=== PATIENT | female | born 1970 | race Caucasian/White ===

== ENCOUNTER 2022-08-19 12:28 | Emergency (ER) | payer OTHER, SELFPAY ==
[2022-08-19] VITALS (23 sets, daily range): BP systolic 139–188; BP diastolic 80–114; PULSE 78–103; RESP 17–20; TEMP 36.3–37.2; O2SAT 93–100
--- NOTE | ~2022-08-19 | CT_ITS ---
EXAMINATION: CT brain w con DATE: 08/19/2022 15:02 INDICATION: Frontal and occipital headaches TECHNIQUE: Computed tomography (CT) of the head was performed without intravenous contrast. The mA wa s adjusted according to patient size. Iterative reconstruction technique was employed. Exam dose: 60 5.33 mGy-cm total exam DLP. COMPARISON: None FINDINGS: There are 3 prominently enhancing masses of the right posterior parietal area, likely due t o metastatic disease, with very prominent vasogenic edema of the right cerebral hemisphere. The 3 les ions measure up to 15.7, 11.3 and 13.9 mm. There is effacement of the cortical sulci of the right cer ebral hemisphere and approximately 5 mm subfalcine midline leftward shift. No fracture or bone destruction of the cranial vault. Mastoid air cells and included paranasal sinuse s are unremarkable. IMPRESSION: 3 prominently enhancing masses of the right parietal cerebral hemisphere, measuring up t o 15.7 mm, likely due to metastatic disease Prominent vasogenic edema and effacement of the cortical sulci site of the right cerebral hemisphere 5 mm leftward midline shift Reviewed, dictated and finalized at [facility]. Reviewed, dictated and finalized at [facility]. IMPRESSION: 3 prominently enhancing masses of the right parietal cerebral alan sphere, measuring up to 15.7 mm, likely due to metastatic disease Prominent vasogenic edema and effacement of the cortical sulci site of the righ t cerebral hemisphere 5 mm leftward midline shift
--- NOTE | ~2022-08-19 | CT_ITS ---
EXAMINATION: CT chest abdomen pelvis w con DATE: 08/19/2022 15:53 INDICATION: Shortness of breath. Previous smoker. Metastatic brain lesions. TECHNIQUE: Computed tomography (CT) of the chest was performed with 100 CC Omnipaque 350 intravenous contrast. Automated exposure control and iterative reconstruction technique were employed. Exam dose: 975.23 mGy-cm total exam DLP. COMPARISON: None FINDINGS: No breast mass lesion or axillary lymphadenopathy is evident. Mild pericardial effusion. The pericardial fluid has attenuation of approximately 29 Hounsfield units Heart size is normal. No thoracic aortic aneurysm or dissection. Mild subcarinal lymphadenopathy; otherwise no hilar or mediastinal mass lesion or lymphadenopathy. There are moderate emphysematous changes of the lungs. Up to approximately 7 x 11 mm opacity is noted in the lower aspect of the anterior segment of the rig ht upper lobe, with attenuation averaging 127 Hounsfield units. There is an adjacent approximately 4. 5 x 6 mm high attenuation lower anterior segment right upper lobe opacity as well. Focal likely chronic interlobular soft tissue thickening in the posterolateral left upper lobe (serie s 4 images 32-34). Mild discoid atelectasis or scarring, left lower lobe. No pulmonary infiltrate or consolidation. The liver, gallbladder, pancreas and bile ducts and pancreatic duct as well as well as the spleen rolando ear normal. The adrenal glands are unremarkable. No renal mass lesion or hydroureteronephrosis is evident. Normal caliber of the abdominal aorta. No intraperitoneal or retroperitoneal or pelvic mass lesion or adenopathy or ascites. Normal appendix. There are occasional colonic diverticula. No bowel obstruction, bowel wall thickenin g, pneumatosis or intraperitoneal free air. Retroverted uterus. No suspicious ovarian or adnexal mass lesion is detected. The urinary bladder is relatively evacuated. Very small fat-containing umbilical hernia. Severe degenerative disc disease at L5-S1. No suspicious osteolytic or osteoblastic lesions are noted. IMPRESSION: Approximately 11 mm and 6 mm indeterminate anterior segment right upper lobe lesions wit h relatively high attenuation. Consider PET/CT imaging for further evaluation. Moderate emphysema Mild subcarinal lymphadenopathy Mild uncomplicated pericardial effusion with relatively high attenuation of approximately 29 Hounsfie ld units Mild colonic diverticulosis is no evidence of diverticulitis Retroverted uterus Reviewed, dictated and finalized at [facility]. Reviewed, dictated and finalized at [facility]. IMPRESSION: Approximately 11 mm and 6 mm indeterminate anterior segment right upper lobe lesions with relatively high attenuation. Consider PET/CT imaging fo r further evaluation. Moderate emphysema Mild subcarinal lymphadenopathy Mild uncomplicated pericardial effusion with relatively high attenuation of rolando roximately 29 Hounsfield units Mild colonic diverticulosis is no evidence of diverticulitis Retroverted uterus
--- NOTE | ~2022-08-19 | CT_ITS ---
EXAMINATION: CT brain w con DATE: 08/20/2022 06:02 INDICATION: Vasogenic edema presenting with frontal and occipital lobe headache and suggestion of met astatic disease on prior noncontrast CT TECHNIQUE: Computed tomography (CT) of the head was performed with 100 mL Omnipaque-350 intravenous c ontrast. Sagittal and coronal reconstructions were performed. The mA was adjusted according to patien t size. Iterative reconstruction technique was employed. The dose-length product was 681.00 mGy-cm. COMPARISON: head CT dated 08/19/2022 FINDINGS: Again seen is a region of vasogenic edema centered in the right parietal and occipital lobes extendin g into the posterior frontal and temporal lobes. This surrounds 2 rim-enhancing measuring 1.4 cm and 1.1 cm and additional solidly enhancing lesions 1.3 cm lesion consistent with metastatic disease. No acute intracranial hemorrhage, acute infarction or abnormal extra axial fluid collection. The vasogen ic edema results in up to 5 mm right to left subfalcine herniation which is unchanged. There is also unchanged effacement of the body and occipital horn of the right lateral ventricle. There also likely secondary entrapment with asymmetric mild enlargement of the temporal horn of the right lateral vent ricle. There is an empty sella the pituitary flattened along the floor of the CSF filled sella. Rig ht vertebral artery is dominant. The orbits, paranasal sinuses and mastoid air cells are normal. IMPRESSION: 1. Prominent vasogenic edema centered at the right parietal and occipital lobes concerning 3 enhancin g lesions suspicious for metastatic disease. 2. Unchanged mass effect with 5 mm right to left subfalcine herniation and effacement of the body and occipital horn of the right lateral ventricle with likely secondary to S1 resulting in also unchange d asymmetric mild enlargement of the temporal horn of the right lateral ventricle. 3. Empty sella Reviewed, dictated and finalized at [facility]. IMPRESSION: 1. Prominent vasogenic edema centered at the right parietal and occipital lobes concerning 3 enhancing lesions suspicious for metastatic disease. 2. Unchanged mass effect with 5 mm right to left subfalcine herniation and effa cement of the body and occipital horn of the right lateral ventricle with likel y secondary to S1 resulting in also unchanged asymmetric mild enlargement of th e temporal horn of the right lateral ventricle. 3. Empty sella
--- NOTE | ~2022-08-19 | CT_ITS ---
EXAMINATION: CT brain wo con INDICATION: Headache COMPARISON: None TECHNIQUE: Standard unenhanced head CT. The dose-length product (DLP) was 681.00 mGy-cm. The mA was a djusted according to patient size. Iterative reconstruction technique was employed. FINDINGS: No intracranial hemorrhage is identified. There is widespread vasogenic edema in the right frontal and parietal lobes and to some extent in the right temporal lobe. There is mild dilation of t he temporal horn of the lateral ventricle on the right. There is a questionable 10 mm centrally hypoa ttenuating mass in the right frontal lobe on image 43. The basal cisterns are patent. The orbits ar e normal. The paranasal sinuses, mastoids and calvarium are normal. IMPRESSION: 1. Widespread vasogenic edema in the right frontal, parietal, and temporal lobes. Finding may relate to a small hypoattenuating lesion of the right frontal lobe. Differential would include abscess. Furt her evaluation by contrast-enhanced CT and/or MRI without and with contrast is recommended. These fin dings and recommendations were discussed with Dr. Denzel Cerrato MD in the Emergency Department a t 1420 hours on 08/19/2022. Reviewed, dictated and finalized at [facility]. IMPRESSION: 1. Widespread vasogenic edema in the right frontal, parietal, and temporal lobe s. Finding may relate to a small hypoattenuating lesion of the right frontal lo be. Differential would include abscess. Further evaluation by contrast-enhanced CT and/or MRI without and with contrast is recommended. These findings and rec ommendations were discussed with Dr. Denzel Cerrato MD in the Emergency Dep artment at 1420 hours on 08/19/2022.
--- NOTE | 2022-08-19 12:50 | ECG_ITS ---
Measurements Intervals [place] Rate: 88 P: 72 NC: 159 QRS: 69 QRSD: 108 T: 57 QT: 356 QTc: 432 Interpretive Statements SINUS RHYTHM BORDERLINE R WAVE PROGRESSION, ANTERIOR LEADS BORDERLINE ECG NO PREVIOUS ECG AVAILABLE FOR COMPARISON Electronically Signed On 08-19-2022 13:00:12 CDT by Pedro Hernandez D.O.
[2022-08-19 13:54] LABS: Appearance Urine Clear (Clear); Bilirubin Urine Negative (Negative); Blood Urine 2+ (Negative); Color Urine Light Yellow (Yellow); Glucose Urine UA Negative (Negative); Ketones Urine Negative (Negative); Leukocyte Esterase Ur Negative LEU/UL (Negative); Nitrate Urine Negative (Negative); Protein Urine Negative (Negative); Specific Grav Ur <= 1.005 (1.010-1.020); Urobilinogen Urine 0.2 mg/dL (0.2-1.0)
[2022-08-19 13:59] LABS: Add Urine Microscopic? YES; Bacteria Urine Trace /hpf; RBC Urine 0-2 /hpf (0-2); Squamous Epithelial Cell Urine Few /hpf (Few); WBC Urine 0-3 /hpf (0-3)
[2022-08-19] MEDS: METOPROLOL TARTRATE 50 MG TAB PO (14:09)
[2022-08-19 14:15] LABS: Basophils Absolute Auto 0.03 K/mm3 (0.00-0.10); Basophils Percent Auto 0.3 % (0.0-1.0); Eosinophils Absolute Auto 0.09 K/mm3 (0.02-0.50); Eosinophils Percent Auto 0.9 % (1.0-6.0); Hemoglobin 13.3 g/dL (12.0-15.0); Immature Granulocyte Absolute 0.02 K/mm3 (0.00-0.00); Immature Granulocyte Percent A 0.2 % (0.0-0.0); Lymphocytes Percent Auto 21.6 % (18.0-42.0); Mean Corpuscular HGB Conc 32.4 g/dL (32.0-36.0); Mean Corpuscular Hemoglobin 28.5 pg (27.0-31.0); Mean Corpuscular Volume 87.8 fL (78.0-102.0); Mean Platelet Volume 9.2 fl (9.2-11.8); Monocytes Absolute Auto 0.51 K/mm3 (0.10-0.90); Monocytes Percent Auto 5.3 % (2.0-11.0); Neutrophils Percent Auto 71.7 % (50.0-70.0); Platelet Count Result 344 K/mm3 (150-420); Red Blood Count 4.67 M/mm3 (4.20-5.40); Red Cell Distribution Width 14.4 % (11.6-14.4); White Blood Count 9.7 K/mm3 (4.8-10.8)
[2022-08-19 14:30] LABS: Alanine Aminotransferase 27 U/L (14-59); Alkaline Phosphatase 92 U/L (46-116); Anion Gap 10 mmol/L (8-16); Aspartate Amino Transferase 15 U/L (15-37); Bilirubin,Total 0.3 mg/dL (0.00-1.00); Blood Urea Nitrogen 20 mg/dL (7-18); Calcium 9.7 mg/dL (8.5-10.1); Carbon Dioxide 29 mmol/L (21-32); Chloride 106 mmol/L (98-108); Estimated Glomerular Filt Rate > 60; Glucose 100 mg/dL (70-99); Osmolality Calculated 302 mOsm/kg (285-295); Potassium 3.9 mmol/L (3.5-5.1); Sodium 145 mmol/L (136-145)
--- NOTE | 2022-08-19 15:53 | ED.HA ---
HPI - Headache General Chief Complaint: Headache Stated Complaint: headaches Time Seen by Provider: 08/19/22 12:32 Source: patient Mode of arrival: ambulatory Limitations: no limitations History of Present Illness HPI Narrative: this is a 52-year-old female with no significant past medical history has not seen her primary care doctor and over 10 years and has been having headache for the last 3 days with some elevated blood pressure, otherwise there is no neck stiffness no fever chills no nausea vomiting no blurry vision the headache she describes as occipital and has since resolved since she has been here in the emergency department, there was a 20 year smoking history and quit just recently, denies any chest pain shortness of breath no abdominal pain no diarrhea constipation. MD elicited complaint: headache Onset (ago): day(s) Onset description: gradually Location: occipital Quality & Timing: aching and different than previous headaches Exacerbating factors: movement of head/neck Relieving factors: rest Context: occurred at rest Associated symptoms: none Related Data Home Medications Medication Instructions Recorded Confirmed No Home Medications 08/19/22 08/19/22 Allergies Allergy/AdvReac Type Severity Reaction Status Date / Time No Known Allergies Allergy Verified 08/19/22 12:40 Review of Systems Review of Systems: All systems reviewed & are unremarkable except as noted in HPI and below PMFSH Past Medical History Medical History Patient denies medical problems Exam Const: General: healthy appearing Nutritional Appearance: well nourished Orientation/consciousness: patient oriented x3 Limitations: no limitations HENMT: Head: normal to inspection Face/Nose/Sinus: Normal external nose present Face and sinus: normal facial exam Eyes: Conjunctivae: conjunctivae normal EOM: EOMs intact bilaterally Neck: Neck: normal visual inspection Resp: Effort & Inspection: normal respiratory effort Auscultation: clear to auscultation bilaterally Cardio: Rate: regular rate Rhythm: regular rhythm GI: GI Palp: Yes Soft to palpation Auscultation: normal bowel sounds : General: Yes bladder normal to palpation Urinary Catheter: Urinary Catheter: patent and draining Back/Spine/Pelvis: Back: no CVA tenderness Skin: General skin exam: normal color Neuro: General: patient oriented x3, moves all extremities, no meningeal signs and no focal motor deficits Cranial nerves: Yes Nystagmus not present Speech: normal speech Gait exam (Neuro): Normal gait present Extrem: General: normal to inspection Psych: Mental Status: mental status grossly normal Affect: normal affect Attitude: cooperative Course Course Emergency Course: patient had a CT scan of the brain which shows prominent basal genic edema and effacement of the cortical sulci of the right cerebral hemisphere with a 5mm left midline shift. Had EKG and blood work performed and reviewed with patient, patient initially had blood pressure 181/108 and received a dose of Lopressor which blood pressure has improved since then and headache is currently resolved. CT scan with contrast of the chest abdomen and pelvis were performed. patient received a total of 8mg IV Decadron and 500mg IV Keppra, spoke to neuro at [facility] which accepted the patient for transfer. Vital Signs Vital signs: Vital Signs Temperature 36.3 C L 08/19/22 12:34 Pulse Rate 103 H 08/19/22 12:34 Respiratory Rate 17 08/19/22 12:34 Blood Pressure 181/108 H 08/19/22 12:34 Pulse Oximetry 97 08/19/22 12:34 Oxygen Delivery Room Air 08/19/22 12:34 Temperature 36.3 C L 08/19/22 12:34 Pulse Rate 91 08/19/22 14:09 Respiratory Rate 17 08/19/22 12:34 Blood Pressure 181/108 H 08/19/22 12:34 Pulse Oximetry 97 08/19/22 12:34 Oxygen Delivery Room Air 08/19/22 12:34 MDM - Headache Lab Data 08/19/22 14:11
[2022-08-19] MEDS: DEXAMETHASONE SOD PHOS INJ 4 MG/ML VIAL IV PUSH (17:15)
[2022-08-19] MEDS: levETIRAcetam 500MG/NACL 100ML 500 MG/100 ML BAG 400 MG IVPB (17:15)
[2022-08-20 01:00] VITALS: BP 146/90; PULSE 92; RESP 20; TEMP 37; O2SAT 96
[2022-08-20 05:20] VITALS: BP 169/90; PULSE 86; RESP 18; TEMP 36.8; O2SAT 97
[2022-08-20] MEDS: levETIRAcetam 500MG/NACL 100ML 500 MG/100 ML BAG 400 MG IVPB ×2 (06:12→18:14)
--- NOTE | 2022-08-20 07:00 | PC.NURSE ---
patient refused breakfast, her brought her a muffin from home. Taken to bathroom at this time. no other needs.
[2022-08-20 09:26] VITALS: BP 131/91; PULSE 107; RESP 16; TEMP 36.7; O2SAT 94
--- NOTE | 2022-08-20 11:30 | PC.NURSE ---
patient refused lunch, daught brought her a sandwich and soup from local bakery, patient ambulatory to bathroom, beverage offered. no further needs a this time'
[2022-08-20 13:14] VITALS: BP 165/76; PULSE 105; RESP 16; TEMP 36.6; O2SAT 97
--- NOTE | 2022-08-20 17:37 | ED.PROGRESS ---
Subjective <Margarito Barrios MD - Last Filed: 08/20/22 21:08> Date/time seen: 08/20/22 13:00 - This patient was signed out to me by previous physician, Dr. Friedman pending bed availability at [facility] for transfer. 08/20/22 13:30 - I evaluated the patient. She has no complaints and denies new weakness, numbness, change or loss of vision, or headache. 08/20/22 19:00 - Reassessed patient. She has no complaints and denies new weakness, numbness, change or loss of vision, or headache. Heart has regular rate and rhythm, lungs clear to auscultation bilaterally. Patient is alert and oriented x3 and moving all 4 extremities without difficulty. Patient signed out to oncoming physician, Dr. Kincaid pending transfer. Review of Systems <Margarito Barrios MD - Last Filed: 08/20/22 21:08> Review of Systems CONSTITUTIONAL: Denies fever, chills, or sweats. EYES: Denies visual changes, redness, or discharge. CARDIOVASCULAR: Denies chest pain, palpitations, or edema. RESPIRATORY: Denies cough or dyspnea. NEUROLOGIC: Denies headache, numbness, dizziness, or weakness. <Óscar Friedman MD - Last Filed: 08/21/22 09:09> Review of Systems All systems reviewed & are unremarkable except as noted in HPI and below Exam <Margarito Barrios MD - Last Filed: 08/20/22 21:08> Narrative GENERAL: Well-developed, well-nourished, and in no acute distress. HEAD: Normocephalic, atraumatic. EYES: PERRLA and EOMI. CHEST: Clear to auscultation. No respiratory distress. No wheezes rales or rhonchi HEART: Regular rate and rhythm. No murmur heard. Normal peripheral pulses. EXTREMITIES: Normal range of motion. No edema. SKIN: Warm, dry, no rash. NEURO: No focal deficits. Alert and oriented x3. Objective Data <Margarito aBrrios MD - Last Filed: 08/20/22 21:08> Vital Signs Vital Signs: Vital Signs - 24 hr 08/20/22 09:26 08/20/22 13:14 08/20/22 19:35 Temperature 36.7 C 36.6 C 36.8 C Pulse Rate 107 H 105 H 74 Respiratory Rate 16 16 18 Blood Pressure 131/91 H 165/76 H 157/94 H Pulse Oximetry 94 97 97 Oxygen Delivery Room Air Room Air Room Air 08/20/22 23:02 08/21/22 03:05 08/21/22 06:45 Temperature 37.2 C 36.6 C 36.9 C Pulse Rate 80 80 82 Respiratory Rate 20 20 18 Blood Pressure 148/90 H 150/70 H 151/77 H Pulse Oximetry 97 96 96 Oxygen Delivery Room Air Room Air Room Air Intake/Output Intake/Output: Intake & Output 08/18/22 08/19/22 08/20/22 08/21/22 23:59 23:59 23:59 23:59 Intake Total 200 265 100 Balance 200 265 100 Meds/Results Medications: Active Medications Generic Name Dose Route Start Last Admin Trade Name Freq PRN Reason Stop Dose Admin Levetiracetam 500 mg in 100 mls @ 400 mls/hr 08/20/22 06:00 08/21/22 06:20 Keppra Iv IVPB Infused Q12H SHARON Infusion Radiology Results: ITS Impressions Chest/Abdomen/Pelvis CT 08/19/22 16:00 IMPRESSION: Approximately 11 mm and 6 mm indeterminate anterior segment right upper lobe lesions with relatively high attenuation. Consider PET/CT imaging for further evaluation. Moderate emphysema Mild subcarinal lymphadenopathy Mild uncomplicated pericardial effusion with relatively high attenuation of approximately 29 Hounsfield units Mild colonic diverticulosis is no evidence of diverticulitis Retroverted uterus Head CT 08/20/22 06:26 IMPRESSION: 1. Prominent vasogenic edema centered at the right parietal and occipital lobes concerning 3 enhancing lesions suspicious for metastatic disease. 2. Unchanged mass effect with 5 mm right to left subfalcine herniation and effacement of the body and occipital horn of the right lateral ventricle with likely secondary to S1 resulting in also unchanged asymmetric mild enlargement of the temporal horn of the right lateral ventricle. 3. Empty sella <Óscar Friedman MD - Last Filed: 08/21/22 09:09> Vital Signs Vital Signs: Vital Signs - 24 hr 08/20/22 09:26 08/20/22 13:14 08/20/22 19:35 Temperature 36.7
[2022-08-20] MEDS: ACETAMINOPHEN 500 MG TABLET 1000 MG PO (17:54)
--- NOTE | 2022-08-20 19:34 | PC.NURSE ---
Care resumed, pt resting in bed c spouse at side, watching TV, no beds available at [facility] as of yet for pt transfer. VSS, call shin at side.
[2022-08-20 19:35] VITALS: BP 157/94; PULSE 74; RESP 18; TEMP 36.8; O2SAT 97
[2022-08-20 23:02] VITALS: BP 148/90; PULSE 80; RESP 20; TEMP 37.2; O2SAT 97
[2022-08-21 03:05] VITALS: BP 150/70; PULSE 80; RESP 20; TEMP 36.6; O2SAT 96
[2022-08-21] MEDS: levETIRAcetam 500MG/NACL 100ML 500 MG/100 ML BAG IVPB (06:00)
[2022-08-21 06:45] VITALS: BP 151/77; PULSE 82; RESP 18; TEMP 36.9; O2SAT 96
--- NOTE | 2022-08-21 08:22 | PC.NURSE ---
0715 introduced self to pt and . pt up and dressed. combing hair. voiced no needs at this time. call shin in reach. 0800 breakfast tray ordered for patient. awaiting arrival.
--- NOTE | 2022-08-21 08:31 | PC.NURSE ---
breakfast tray provided.
[2022-08-21 09:32] VITALS: BP 142/58; PULSE 88; RESP 16; O2SAT 100
--- NOTE | 2022-08-21 09:37 | PC.NURSE ---
1000 pt ate 100% of breakfast 1030 pt taken to 2nd floor for personal hygiene. and shower. 1045 call to [facility] no bed availability at this time.
--- NOTE | 2022-08-21 12:25 | PC.NURSE ---
lunch tray to patient, no needs at this time. pt to bathroom as needed independently.
[2022-08-21 14:08] VITALS: BP 142/79; PULSE 79; RESP 16; TEMP 37.4; O2SAT 99
[2022-08-21] MEDS: ACETAMINOPHEN 325 MG TABLET 650 MG PO (14:22)
[2022-08-21] MEDS: levETIRAcetam 500MG/NACL 100ML 500 MG/100 ML BAG 400 MG IVPB (17:18)
[2022-08-21 17:20] VITALS: BP 153/83; PULSE 84; RESP 16; O2SAT 94
[2022-08-21 17:33] VITALS: BP 153/83; PULSE 84; RESP 20; TEMP 37.4; O2SAT 94
== END 2022-08-21 18:48 | disposition short-term general hospital (02) ==
PROVIDERS: Emergency Medicine; Emergency Provider Preventive Medicine Aerospace Medicine
DX: R51.9 Headache, unspecified (principal); G93.6 Cerebral edema; R91.8 Other nonspecific abnormal finding of lung field; Z87.891 Personal history of nicotine dependence
CPT/HCPCS: 36415; 70450; 70460; 70470; 71260; 74177; 80053; 81001; 85025; 93005; A9270; J0131; J1100; J1953; Q9967

== ENCOUNTER 2022-09-13 07:26 | Outpatient (CLI) | payer OTHER, SELFPAY ==
[2022-09-13 08:29] LABS: Cholesterol 261 mg/dL (0-200); HDL Direct 84 mg/dL (40-60); LDL Cholesterol Calculated 162 mg/dL (<130); Triglycerides 76 mg/dL (0-150)
[2022-09-13 11:04] LABS: Glucose 113 mg/dL (70-99)
== END 2022-09-13 07:27 | disposition home or self-care (01) ==
LOC: CHSLAB 07:28
PROVIDERS: PCP Internal Medicine; Visit Provider Internal Medicine
DX: Z00.00 Encounter for general adult medical examination without abnormal findings (principal)
CPT/HCPCS: 36415; 80061; 82947; 84443

== ENCOUNTER 2022-09-21 07:43 | Outpatient (CLI) | payer OTHER, SELFPAY ==
--- NOTE | ~2022-09-21 | MM_ITS ---
EXAMINATION: MM screening ramesh BI w palomo HISTORY: Screening mammogram TECHNIQUE: Craniocaudal and mediolateral oblique 3-D tomosynthesis images were obtained and synthetic 2-D images were generated. CAD analysis was submitted and interpreted. COMPARISON: No prior mammogram is available for comparison at this institution. BREAST PARENCHYMAL COMPOSITION: There are scattered areas of fibroglandular density. FINDINGS: There is no evidence of suspicious mass, calcification, or architectural distortion to sugg est malignancy in either breast. There has been no suspicious interval change. IMPRESSION: 1. No mammographic evidence of malignancy. 2. Recommend routine screening mammography in one year. BI-RADS Category 1: Negative Reviewed, dictated and finalized at [facility].
== END 2022-09-21 07:44 | disposition home or self-care (01) ==
LOC: CHSIMG 07:44
PROVIDERS: PCP Internal Medicine; Visit Provider Internal Medicine
DX: Z12.31 Encounter for screening mammogram for malignant neoplasm of breast (principal)
CPT/HCPCS: 77063; 77067

== ENCOUNTER 2024-09-12 11:41 | Outpatient (CLI) | payer OTHER, SELFPAY ==
--- NOTE | ~2024-09-12 | DEXA_ITS ---
Bone Density Report Name: LIGIA CAMEJO Age: 54 Sex: Female Ethnicity: White Date of : 1970 Indication: postmenopausal; screening for osteoporosis; height loss; cancer; Referring Provider: SHELLY, KARLO Bourgeois Study: Bone densitometry was performed. Exam Date: September 12, 2024 Accession number: [id number] Bone Density: Region BMD T-score Z-score Classification AP Spine(L1-L4) 0.978 -0.6 0.2 Normal Femoral Neck (Left) 0.776 -0.7 0.2 Normal Total Hip (Left) 0.941 0.0 0.5 Normal Femoral Neck (Right) 0.797 -0.5 0.4 Normal Total Hip (Right) 0.964 0.2 0.7 Normal Femoral Neck Mean 0.787 -0.6 0.3 Normal Total Hip Mean 0.952 0.1 0.6 Normal World Health Organization criteria for BMD impression classify patients as: Normal (T-score at or above -1.0), Osteopenia (T-score between -1.0 and -2.5), or Osteoporosis (T-score at or below -2.5). Clinical Information Provided by Patient: Has the following medical conditions: Cancer Patient maximum height was 66 Menopause Age: 49 No regular weight bearing exercise Drinks caffeinated beverages Onset of menses at age 14 Number of children 3 Impression: The patient has normal bone mass. Discussion: BONE DENSITY IS ABOVE THE MINIMUM DESIRABLE LEVEL AT ALL SKELETAL SITES TESTED. This patient?s bone mineral density is above the minimum desirable level (T-score -1.0 or better) at all sites measured. The patient should follow a healthful lifestyle (good nutrition with adequate calcium and vitamin D, and appropriate weight-bearing exercise). Follow-Up: Consider repeating this study in 5 years or sooner if there is some new clinical indication. Reported by: REBECCA on 09/12/2024 12:03:00 PM. Reviewed, dictated and finalized at location A.
--- NOTE | ~2024-09-12 | MM_ITS ---
EXAMINATION: MM screening ramesh BI w palomo HISTORY: Screening TECHNIQUE: Craniocaudal and mediolateral oblique 3-D tomosynthesis images were obtained and synthetic 2-D images were generated. CAD analysis was submitted and interpreted. COMPARISON: 09/21/2022 BREAST PARENCHYMAL COMPOSITION: Dense: The breasts are heterogeneously dense, which may obscure small masses FINDINGS: There are developing asymmetry superiorly in the right breast on MLO view. The left breast is stable without evidence for malignancy. IMPRESSION: 1. Developing right breast asymmetries superiorly on MLO view, middle-posterior depth. 2. Additional mammographic views and possible breast ultrasound are recommended. BI-RADS Category 0: Incomplete: Needs additional imaging evaluation. Reviewed, dictated and finalized at location B. IMPRESSION: 1. Developing right breast asymmetries superiorly on MLO view, middle-posterior depth. 2. Additional mammographic views and possible breast ultrasound are recommended . BI-RADS Category 0: Incomplete: Needs additional imaging evaluation.
--- OUTSIDE RECORDS SUMMARY | 2024-09-12 13:05 | XMS_ITS ---
Author Organization [facility] Address [address] [place] [address] Care Team Providers Care Aircraft Inspection Record Clerk Name Role Phone Jarocho Ruggiero MD Primary Care Provider [phone] Robert Finley MD PhD Unavailable Jarrett Lofton MD Unavailable Active Problems Problem Noted Date Diagnosed Date 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 LAD (lymphadenopathy), hilar 09/10/2022 Malignant neoplasm of upper lobe of right lung 0 09/01/2022 Cancer Staging:Clinical stage from 07/12/2024:Stage IVB(cT1b, cN2, pM1c) - Signed by Veronica Sullivan MD on 07/12/2024 Brain mass 08/21/2022 Current Treatment and Therapy Plans IV Maintenance Therapy Plan* Plan Start Date:10/19/2022 Plan Provider:Robert Finley MD PhD Linked Problems Malignant neoplasm of upper lobe of right lung (HCC)Brain massLAD (lymphadenopathy), hilar Treatment Medications No medications scheduled. pembrolizumab / pemetrexed / CARBOplatin 21 day cycles - Non-Small Cell Lung* Plan Start Date:10/04/2022 Plan Provider:Robert Finley MD PhD Linked Problems Malignant neoplasm of upper lobe of right lung (HCC) Treatment Medications Current Day (Day 1 , Cycle 34 - Planned for 09/25/2024) Next Day (Day 1, Cycle 35 - Planned for 10/16/2024) CARBOplatin (PARAPLATIN) IVP B in 250 mLdexAMETHasone (DECADRON)pembrolizumab (KEYTRUDA)pembrolizumab (KEYTRUDA) IVPB in 100 mLPEMEtrexedPEMEtrexed (ALIMTA) IVPB (J9305)PEMEtrexed (PEMFEXY) pembrolizumab (KEYTRUDA) 200 mg in sodium chloride 0.9% 100 mLPEMEtrexed disodium (ALIMTA-J9305) 1,000 mg in sodium chloride 0.9% 100 mL IVPB pembrolizumab (KEYTRUDA) 200 mg in sodium chloride 0.9% 100 mLPEMEtrexed disodium (ALIMTA-J9305) 1,000 mg in sodium chloride 0.9% 100 mL IVPB Past Treatment and Therapy Plans No past plan information found. Radiation Treatments (No Episode) * Course C3 GK 202407/12/2024 - 07/12/2024 Treatment Period Energy Fraction Dose Fractions Total Dose Plans Planned GTV 10-11 07/12/2024 - 07/12/2024 2,000 1 / 2,000 Reference Points Delivered A:HOA10_CiEujngs 07/12/2024 - 07/12/2024 2,000 * Course C2_GK 202302/22/2024 - 02/22/2024 Treatment Period Energy Fraction Dose Fractions Total Dose Plans Planned A:GTV9_LtTemp 02/22/2024 - 02/22/2024 2,000 1 / 2,000 Reference Points Delivered A:GTV9_LtTempora 02/22/2024 - 02/22/2024 2,000 * Course C1 GK 202209/08/2022 - 09/08/2022 Treatment Period Energy Fraction Dose Fractions Total Dose Plans Planned A:GTV1_LtFron 09/08/2022 - 09/08/2022 2,000 1 / 2,000 B:GTV2_RtParL 09/08/2022 - 09/08/2022 1,800 , C:GTV3_RtParM 09/08/2022 - 09/08/2022 1,800 , D:GTV4_LtPar 09/08/2022 - 09/08/2022 2,000 2,000 E:GTV5_RtParI 09/08/2022 - 09/08/2022 1,800 , F:GTV6_LtParO 09/08/2022 - 09/08/2022 2,000 2,000 G:GTV7_RtTemp 09/08/2022 - 09/08/2022 2,000 2,000 H:GTV8_RtParS 09/08/2022 - 09/08/2022 2,000 2,000 Reference Points Delivered A:GTV!_LtFront 09/08/2022 - 09/08/2022 2,000 B:GTV2_RtParLat 09/08/2022 - 09/08/2022 1,800 C:GTV3_RtParMed 09/08/2022 - 09/08/2022 1,800 D:GTV4_LtPar 09/08/2022 - 09/08/2022 2,000 E:GTV5_RtParInf 09/08/2022 - 09/08/2022 1,800 F:GTV6_LtParInf 09/08/2022 - 09/08/2022 2,000 G:GTV7_RtTemp 09/08/2022 - 09/08/2022 2,000 H:GTV8_RtParSup 09/08/2022 - 09/08/2022 2,000 Lifetime Dose Tracking * Chemical Lifetime Dose Automatic Entry Manual Entr y Fluoro Time 0.1 minutes 0.1 minutes 0 minutes
--- OUTSIDE RECORDS SUMMARY | 2024-09-12 13:05 | XMS_ITS | Encounter Summary ---
Author Organization [facility] Healthcare Address [address] [place] [address] Care Team Providers Care Foreign Language Instructor Name Role Phone Jarocho Ruggiero MD Primary Care Provider [phone] Marbella David RN Unavailable Robert Finley MD PhD Unavailable [phone] aJrrett Lofton MD Unavailable [phone] Encounter Details Date Type Department Care Team (Late st Contact Info) Description 09/28/2022 Telephone [facility] Interventional Pulmonology [address] [place], [place] [id number] Jenny Young, RN [address] [facility] [address] [place], [place] [id number] Social History Tobacco Use Types Packs/Day Years Used Date Smoking Tobacco: Former Cigarettes AUDIT-C Answer Date Recorded Q1: How often do you have a drink containing alc ohol? Monthly or less 09/29/2022 Q2: How many drinks containi ng alcohol do you have on a typical day when you are drinking? 1 or 2 09/29/2022 Q3: How often do you have si x or more drinks on one occasion? Less than monthly 09/29/2022 Comments Unknown Sex and Gender Information Value Date Recorded Sex Assigned at Not on file Legal Sex Female 5:44 PM [employer]ORE [employer] Gender Identity Female 08/27/2022 2:35 PM CDT Sexual Orientation Not on file documented as of this encounter Functional Status * Audit-C Score Answer Date of Assessment Author 2 09/29/2022 12:02 PM Gayle Vyas RN * Question Answer Date of Assessment Author Q1: How often do you have a drink containing alcohol? Monthly or less 09/29/2022 12:02 PM Gayle Vyas RN Q2: How many drinks containing alcohol do you have on a typical day when you are drinking? 1 or 2 09/29/2022 12:02 PM Gayle Vyas RN Q3: How often do you have six or more drinks on one occasion? Less than monthly 09/29/2022 12:02 PM Gayle Vyas RN documented as of this encounter Nursing Notes * Jenny Young RN - 09/28/2022 2:36 PM CDT Interventional Pulmonology: Bronchoscopy Pre-Appointment Call Called and spoke to patient on 09/28/2022 at 1440 in regards to the Bronchoscopy scheduled for tomorrtuesday09/29/22 at 12:30pm (11:30am arrival time). I asked the patient the following screening questions prior to the pre-procedure instructions: 1.Have you traveled outside the [place] in the last 6 months?No 2. Have you been exposed to anyone who is sick in the last 30 days?No 3. Have you been exposed to or tested positive for COVID-19 within the last 10 days?No 4. Have you tested positive for monkeypox within the last 28 days or are you waiting for a monkeypox test result? No 5. Are you having any of the following? None of these Pre-procedure instructions: The patient stated that they did receive their pre-procedure instructions in the mail, email, or [employer]. Instructed the patient to arrive at [facility] Admitting/Registration Office on [facility] on tomorrtuesday09/29/22 at 12:30pm (11:30am arrival time). 3. Instructed patient that if patient will be receiving sedation they will not be able to eat or drink anything after midnight on 09/28/2022 but may take sips of water with their AM medications (exceptblood thinner per discussion below). 4. Patient stated patient does not use oxygen at home. If the patient uses home oxygen, even if they only use oxygen during sleep periods, they are to bring enough home oxygen supply to get themselves to and from [facility]. 5. Patient stated that patient does not use a CPAP or BIPAP device. Instructed patient, if they usea CPAP or BIPAP, to bring in their device or bring documentation of their CPAP/BIPAP settings with them to their appointment. 6. The patient will need a tour bus driver or will need to arrange their own transportation home after theirprocedure. Patient stated patient does have a ride home after procedure. Emphasized that departmental staff will confirm transportation prior to the procedure. Further emphasized that the patient will not be able to drive themselves home after their procedure if they receive any sedation and/or opioids. Instructed patient/family that if a transportation service is used for this appointment that the patient/family need to provide the Interventional Pulmonology staff with the name and the phone number of the transportation service used. 7. Patient confirmed that the patient does have some one who will stay with them for at least 24 hours post discharge. Emphasized that, for their safety, the patient may have to be admitted for 23 hours post procedure if they do not have some one who will stay with them for at least 24 hours post discharge. 8. The patient will need to bring a list of their current home medications including all herbal supplements and all non-prescription/over the counter medications. 9. Patient stated that patient does not take anticoagulants. 10. Patient stated that they are not diabetic. If insulin dependent diabetic, the patient may take 1/2 of their PM insulin dose the evening prior to their procedure. If non-insulin dependent, they are to hold their oral diabetic medications the day of their procedure. The patient is also to check their finger stick blood glucose the morning of their procedure if they are diabetic. 11. Patient confirmed that the patient and their family are familiar on the location of the [facility] Admitting Office for pre- procedure registration and any lab work that may be ordered. Discussed that the patient is not to go to the [facility] for their appointment. Confirmed they are aware of what time to arrive at the [facility] Admitting Office. 12. I reviewed the following [facility] Visitor Policy that was updated 08/2021 with patient : A. Each patient is only allowed two visitors for an outpatient procedure/appointment. B. Visitors will be screened upon arrival to the hospital with the aforementioned coronavirus questions. Any yes answer to questions will result in the visitor being denied entrance to this facility. C. All visitors are expected to remain in the Surgical Registration and Waiting Area the entire time they are waiting on the patient and will not be allowed in the procedure area. D. All visitors are expected to follow posted hand hygiene protocols. E. Instructed patient that effective 08/18/22, masks are optional. F. Patient verbalized confirmation of visitor policy and verbalized understanding that failure to comply with aforementioned policy or if their visitor/family does not pass the coronavirus screening questions, the visitor/family will be asked to leave the hospital immediately. 12. Patient verbalized confirmation that they will call and notify us if they are having any fever, cough, shortness of breath, sore throat, lost of taste or smell, diarrhea, vomiting,or are waiting on a COVID test result between the time of this call and the time of their procedure. 13. Patient verbalized confirmation and understanding of above instructions & I answered all questions from the patient/family. 14. Call Ended 09/28/2022 at 1446 documented in this encounter Plan of Treatment Not on file documented as of this encounter Visit Diagnoses Not on filedocumented in this encounter Care Teams Foreign Language Instructor Relationship Specialty Start Date End Date Jarocho Ruggiero MD PCP - General Internal Medicine 08/20/22 Marbella David, RN [address] [place] [address] Nurse Navigator 08/31/22 10/07/22 Robert Finley MD PhD [address] [facility] MEDICAL ONCOL[facility]Y, [address] [address] Consulting Physician Medical Oncology 10/05/22 Jarrett Lofton MD [address] [facility] MEDICAL [facility], [address] [place] [address] Consulting Physician Neurosurgery 11/18/22 documented as of this encounter
--- OUTSIDE RECORDS SUMMARY | 2024-09-12 13:06 | XMS_ITS | Clinical Summary ---
Author Organization [facility] Address [address] [place] [address] Care Team Providers Care Line Analyst Name Role Phone Jarocho Ruggiero MD Primary Care Provider [phone] Robert Finley MD PhD Unavailable [phone] Jarrett Lofton MD Unavailable [phone] Allergies No known active allergies Medications acetaminophen (TYLENOL) 325 mg tablet Take 2 tablets (650 mg total) by mouth every 4 (four) hours as needed for pain 023 Active famotidine (PEPCID) 20 mg tablet Take 1 tablet (20 mg total) by mouth 2 (two) times a day Continue while taking steroids. 60 tablet 1 023 Active docusate sodium (COLACE) 250 mg capsule Take 1 capsule (250 mg total) by mouth daily Active Zoryve 0.3 % cream 024 Active clobetasoL (TEMOVATE) 0.05 % cream 024 Active ondansetron (ZOFRAN) 8 mg tabletIndicat ions:Malignan t neoplasm of upper lobe of right lung (HCC) Take 1 tablet (8 mg total) by mouth every 8 (eight) hours as needed for nausea or vomiting Use if prochlorperazine does not stop nausea 24 tablet 3 024 Active prochlorperaz ine (COMPAZINE) 10 mg tabletIndicat ions:Malignan t neoplasm of upper lobe of right lung (HCC) Take 1 tablet (10 mg total) by mouth every 6 (six) hours as needed for nausea or vomiting 120 tablet 3 025 Active folic acid (FOLVITE) 1 mg tabletIndicat ions:Malignan t neoplasm of upper lobe of right lung (HCC) TAKE 1 TABLET BY MOUTH DAILY STARTING 7 DAYS BEFORE THE FIRST TREATMENT AND CONTINUING UNTIL 21 DAYS AFTER THE LAST PEMETREXED TREATMENT 90 tablet 1 025 Active folic acid (FOLVITE) 1 mg tabletIndicat ions:Malignan t neoplasm of upper lobe of right lung (HCC) TAKE 1 TABLET BY MOUTH DAILY STARTING 7 DAYS BEFORE THE FIRST TREATMENT AND CONTINUING UNTIL 21 DAYS AFTER THE LAST PEMETREXED TREATMENT 90 tablet 1 024 2024 Discontinued Active Problems Problem Noted Date Diagnosed Date 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 LAD (lymphadenopathy), hilar 09/10/2022 Malignant neoplasm of upper lobe of right lung 0 09/01/2022 Cancer Staging:Clinical stage from 07/12/2024:Stage IVB(cT1b, cN2, pM1c) - Signed by Veronica Sullivan MD on 07/12/2024 Brain mass 08/21/2022 Encounters Date Type Department Care Team Description 09/04/2024 1:45 PM CDT Infusion [facility] at [address] [address] Malignant neoplasm of upper lobe of right lung (HCC) (Primary Dx) 09/04/2024 1:15 PM CDT Office Visit [facility] [address] [place] [address] [address] [place] [address] Robert Finley MD PhD Malignant neoplasm of upper lobe of right lung (HCC) (Primary Dx) 09/04/2024 12:45 PM CDT Clinical Support [facility] at [address] [address] Malignant neoplasm of upper lobe of right lung (HCC) 09/04/2024 Orders Only [facility] [address] [place] [address] [address] [place] [address] Robert Finley MD PhD 08/30/2024 8:08 AM CDT - 08/30/2024 11:59 PM CDT Hospital Encounter [facility] [address] [place] [address] Malignant neoplasm of upper lobe of right lung (HCC) Discharge Disposition: Discharge to home or self care 08/14/2024 8:00 AM CDT Infusion [address] [place] [address] Malignant neoplasm of upper lobe of right lung (HCC) (Primary Dx) 08/14/2024 7:30 AM CDT Clinical Support [address] [address] Malignant neoplasm of upper lobe of right lung (HCC) 08/14/2024 Orders Only [facility] [address] [place] [address] [address] [place] [address] Loretta Mckeon RN 08/09/2024 Orders Only [facility] [address] [place] [phone] Lisa Vides, CLIVE 08/09/2024 Orders Only [facility] [address] [place] [address] [address] [place] [address] Robert Finley MD PhD 07/26/2024 Orders Only [facility] - Infusion [address] [facility] Floor [address] [place] [address] Danika Landry [facility] 07/24/2024 1:45 PM HEALTH INSURANCE ADJUSTER Infusion [address] [address] Malignant neoplasm of upper lobe of right lung (HCC) (Primary Dx) 07/24/2024 1:15 PM HEALTH INSURANCE ADJUSTER Office Visit [facility] [address] [place] [address] [address] [place] [address] Robert Finley MD PhD Malignant neoplasm of upper lobe of right lung (HCC) (Primary Dx) 07/24/2024 12:45 PM HEALTH INSURANCE ADJUSTER Clinical Support [facility] at [facility] [address] [place] [address] Malignant neoplasm of upper lobe of right lung (HCC) 07/24/2024 Orders Only [facility] [address] [facility] [address] [place] [phone] Robert Finley MD PhD 07/13/2024 Telephone [facility] Rad[facility] [address] [facility] [place] [address] Brad Carter RN Follow-up 07/12/2024 9:00 AM HEALTH INSURANCE ADJUSTER - 07/12/2024 11:59 PM HEALTH INSURANCE ADJUSTER Hospital Encounter [facility] Oncology [address] [place] [address] Veronica Sullivan MD Discharge Disposition: Discharge to home or self care 07/12/2024 6:35 AM HEALTH INSURANCE ADJUSTER - 07/12/2024 11:59 PM HEALTH INSURANCE ADJUSTER Hospital Encounter [facility] Radiation Oncology [facility] [place] [address] Veronica Sullivan MD Discharge Disposition: Discharge to home or self care 07/12/2024 6:30 AM HEALTH INSURANCE ADJUSTER Procedure visit [facility] Oncology [address] [place] [address] Jarrett Lofton MD Perkins, Stephanie Mabry, MD Metastasis to brain (HCC) (Primary Dx) 07/12/2024 Orders Only RAD ONC TREATMENTS Miscellaneous, Not In File 07/12/2024 Orders Only RAD ONC TREATMENTS Miscellaneous, Not In File 07/10/2024 Documentation [facility] Radiation Oncology [address] [place] [address] Vianca Alonzo, CLIVE Gamma Knife/Radiosurgery (Insurance Pre-Authorization) 07/09/2024 10:00 AM HEALTH INSURANCE ADJUSTER Office Visit [facility]iation [facility]cology [address] [facility] [place] [address] Veronica Sullivan MD Malignant neoplasm metastatic to brain (HCC) [C79.31] (Primary Dx) 07/09/2024 9:52 AM HEALTH INSURANCE ADJUSTER - 07/09/2024 11:59 PM HEALTH INSURANCE ADJUSTER Hospital Encounter [facility] Radiation Oncology [address] [place] [address] [place] [address] Veronica Sullivan MD Discharge Disposition: Discharge to home or self care 07/09/2024 9:52 AM HEALTH INSURANCE ADJUSTER - 07/09/2024 11:59 PM HEALTH INSURANCE ADJUSTER Hospital Encounter [facility] [address] [place] [address] Metastasis to brain (HCC) Discharge Disposition: Discharge to home or self care 07/09/2024 Documentation [facility] Radiation Oncology [address] [place] [address] [place] [address] Vianca Alonzo RN Gamma Knife/Radiosurgery (GK MRI) 07/06/2024 Telephone [facility] Radiation Oncology [address] [place] [address] Brad Carter RN 06/26/2024 1:45 PM HEALTH INSURANCE ADJUSTER Infusion [address] [place] [phone] Malignant neoplasm of upper lobe of right lung (HCC) (Primary Dx) 06/26/2024 1:15 PM HEALTH INSURANCE ADJUSTER Office Visit [facility] [address] [place] [address] [address] [place] [phone] Robert Finley MD PhD Malignant neoplasm of upper lobe of right lung (HCC) (Primary Dx); Malignant neoplasm metastatic to brain (HCC) 06/26/2024 12:45 PM HEALTH INSURANCE ADJUSTER Clinical Support [facility] [address] [place] [address] Malignant neoplasm of upper lobe of right lung (HCC) 06/26/2024 Orders Only [facility] [address] [place] [address] [address] [place] [address] Robert Finley MD PhD 06/15/2024 Telephone [facility] [address] [place] [address] [address] [place] [address] Loretta Mckeon RN from Last 3 Months Immunizations Immunization Administration Dates Next Due Hep B Vaccine 01/01/2005,07/03/2004,06/05/2004 Influenza, Trivalent, Cell C ulture-based MDCK, Preservative Free, Antibiotic Free, Intramuscular 03/11/2023 MMR 07/03/2004 Surgical History Surgery Date Site/Laterality Comments DILATION AND CURETTAGE OF UTERUS PORT PLACEMENT CHEST >5 YEARS 11/19/2022 N/A Medical History Medical History Date Comments Cancer (HCC) Psoriasis Lung cancer (HCC) Family History Medical History Relation Name Comments Hypertension Father Multiple myeloma Father Heart disease Mother Hypertension Mother Relation Name Status Comments Father Mother Alive Social History Tobacco Use Types Packs/Day Years Used Date Smoking Tobacco: Former Cigarettes Q uit: 05/2022 Tobacco Cessation:Counseling Given: No AUDIT-C Answer Date Recorded Frequency of Alcohol Consumption Not on file 06/26/2024 Q2: How many drinks containi ng alcohol do you have on a typical day when you are drinking? Patient does not drink Q3: How often do you have si x or more drinks on one occasion? Less than monthly 06/26/2024 Personal Safety Answer Date Recorded Have you ever been in or are you currently in a harmful physical or emotional relationship or is someone making you feel afraid or unsafe? Denies 11/19/2022 Comments Unknown Sex and Gender Information Value Date Recorded Sex Assigned at Not on file Legal Sex Female 5:44 PM HEALTH INSURANCE ADJUSTER Gender Identity Female 08/27/2022 2:35 PM CDT Sexual Orientation Not on file Obstetrics History Last Filed Vital Signs Vital Sign Reading Time Taken Comments Blood Pressure 123/84 09/04/2024 1:26 PM CDT Pulse 90 09/04/2024 1:26 PM CDT Temperature 36.7 C (98.1 F) 09/04/2024 1:26 PM CDT Respiratory Rate 18 09/04/2024 1:26 PM CDT Oxygen Saturation 100% 09/04/2024 1:26 PM CDT Inhaled Oxygen Concentration - - Weight 89.9 kg (198 lb 3.2 oz) 09/04/2024 1:26 P M CDT no shoes Height 167.6 cm (5' 6 ) 09/04/2024 1:26 PM CDT Body Mass Index 31.99 09/04/2024 1:26 PM CDT Plan of Treatment Health Maintenance Due Date Last Done Comments Breast Cancer Screening-Mammogram 1972 Cervical Cancer Screening 1972 Colon Cancer Screening-Colonoscopy 1972 Depression Screening 1972 Hepatitis C Screening 1972 DTaP/Tdap/Td Vaccine (1 - Tdap) 08/01/1983 Regular Well Visit/Exam 18-64 1990 Pneumococcal vaccine <65 (1 of 2 - PCV) 08/01/1991 Zoster Vaccine (1 of 2) 08/01/1991 Covid-19 Vaccine ( - season) 2024 06/04/2021, 06/06/2020, 05/19/2020 Hepatitis B Screening Completed 01/01/2005 , 07/03/2004, 06/05/2004 Influenza Vaccine Completed 03/20/2024, 03/11/2023 Medical Devices Implanted Type Area Photo Intern Device Identifier Shelf Expiration Date Model / Serial / Lot [employer] Xcela Power Port 8fr [id number] - [id number] Implanted:Qty: 1 on 11/19/2022 at [facility] [employer] 04/25/2027 [id number] / / [id number] Procedures Procedure Name Priority Date/Time Associated Diagnosis Comments URINALYSIS, MICROSCOPIC ONLY Routine 09/04/2024 1:59 PM CDT Malignant neoplasm of upper lobe of right lung (HCC) URINALYSIS AND REFLEX TO MICROSCOPIC AND CULTURE Routine 09/04/2024 1:59 PM CDT Malignant neoplasm of upper lobe of right lung (HCC) EGFR STAT 09/04/2024 12:36 PM CDT Malignant neoplasm of upper lobe of right lung (HCC) DIFFERENTIAL AUTO Routine 09/04/2024 12: 36 PM CDT Malignant neoplasm of upper lobe of right lung (HCC) CBC WITH AUTO DIFFERENTIAL Routine 09/04/2024 12:36 PM CDT Malignant neoplasm of upper lobe of right lung (HCC) COMPREHENSIVE METABOLIC PANEL STAT 09/04/2024 12:36 PM CDT Malignant neoplasm of upper lobe of right lung (HCC) TSH Routine 09/04/2024 12:36 PM CDT Malignant neoplasm of upper lobe of right lung (HCC) CT CHEST ABDOMEN PELVIS W CONTRAST Schedule Routine, Read Routine (OP Routine) 08/30/2024 9:20 AM CDT Malignant neoplasm of upper lobe of right lung (HCC) EGFR STAT 08/14/2024 7:36 AM CDT Malignant neoplasm of upper lobe of right lung (HCC) DIFFERENTIAL AUTO Routine 08/14/2024 7:3 6 AM CDT Malignant neoplasm of upper lobe of right lung (HCC) CBC WITH AUTO DIFFERENTIAL Routine 08/14/2024 7:36 AM CDT Malignant neoplasm of upper lobe of right lung (HCC) COMPREHENSIVE METABOLIC PANEL STAT 08/14/2024 7:36 AM CDT Malignant neoplasm of upper lobe of right lung (HCC) TSH Routine 08/14/2024 7:36 AM CDT Malignant neoplasm of upper lobe of right lung (HCC) EGFR STAT 07/24/2024 12:47 PM HEALTH INSURANCE ADJUSTER Malignant neoplasm of upper lobe of right lung (HCC) DIFFERENTIAL AUTO Routine 07/24/2024 12: 47 PM HEALTH INSURANCE ADJUSTER Malignant neoplasm of upper lobe of right lung (HCC) CBC WITH AUTO DIFFERENTIAL Routine 07/24/2024 12:47 PM HEALTH INSURANCE ADJUSTER Malignant neoplasm of upper lobe of right lung (HCC) COMPREHENSIVE METABOLIC PANEL STAT 07/24/2024 12:47 PM HEALTH INSURANCE ADJUSTER Malignant neoplasm of upper lobe of right lung (HCC) TSH Routine 07/24/2024 12:47 PM HEALTH INSURANCE ADJUSTER Malignant neoplasm of upper lobe of right lung (HCC) RAD ONC ARIA COURSE SUMMARY 07/12/2024 10:11 AM HEALTH INSURANCE ADJUSTER RAD ONC ARIA SESSION SUMMARY 07/12/2024 9:39 AM HEALTH INSURANCE ADJUSTER MRI BRAIN GAMMA KNIFE W WO CONTRAST Schedule Routine, Read Routine (OP Routine) 07/09/2024 11:35 AM HEALTH INSURANCE ADJUSTER Metastasis to brain (HCC) EGFR STAT 06/26/2024 1:02 PM HEALTH INSURANCE ADJUSTER Malignant neoplasm of upper lobe of right lung (HCC) DIFFERENTIAL AUTO Routine 06/26/2024 1:0 2 PM HEALTH INSURANCE ADJUSTER Malignant neoplasm of upper lobe of right lung (HCC) CBC WITH AUTO DIFFERENTIAL Routine 06/26/2024 1:02 PM HEALTH INSURANCE ADJUSTER Malignant neoplasm of upper lobe of right lung (HCC) COMPREHENSIVE METABOLIC PANEL STAT 06/26/2024 1:02 PM HEALTH INSURANCE ADJUSTER Malignant neoplasm of upper lobe of right lung (HCC) TSH Routine 06/26/2024 1:02 PM HEALTH INSURANCE ADJUSTER Malignant neoplasm of upper lobe of right lung (HCC) from Last 3 Months Results * (ABNORMAL) Urinalysis reflex to microscopic and culture Urine, bladder (09/04/2024 1:59 PM CDT) Color, ur Yellow Yellow Comment:Testing performed by : [facility], [address] [place] [address]., [address] Clarity, ur Clear Clear STEFANI SUERO Comment:Testing performed by : [address] [address] Specific gravity, ur 1.013 1.003 - 1.030 STEFANI Comment:Testing performed by : [address] [address] pH, urine 5.5 STEFANI Comment: Interpretive Data U rine pH is affected by diet, medications, systemic acid-base disturbances, and renal tubular function. pH may affect urinary stone formation. For example, urine pH below 6.0 may help reduce the tendency for calcium phosphate stones and pH greater than 6.0 may reduce the tendency for uric acid stone formation. Source: [facility] [employer] Current Interpretive Data was last revised on 2017 Testing performed by: [address] [address] Protein, ur ql Negative Negative STEFANI Comment:Testing performed by : [address] [address] Glucose, ur ql Negative Negative STEFANI Comment:Testing performed by : [address] [address] Ketones, ur Negative Negative STEFANI Comment:Testing performed by : [address] [address] Bilirubin, ur Negative Negative STEFANI Comment:Testing performed by : [address] [address] Blood, ur 1+(A) Negative STEFANI Comment:Testing performed by : [address] [address] Urobilinogen, ur <2.0 <2.0 mg/dL STEFANI Comment:Testing performed by : [address] [address] Nitrite, ur Negative Negative STEFANI Comment:Testing performed by : [address] [address] Leukocyte esterase, ur Negative Negative STEFANI Comment:Testing performed by : [address] [address] UA reflex comment Reflex to microscopic UA will be performed. STEFANI Comment:Testing performed by : [address] [address] Urine, bladder 09/04/2024 1: 59 PM CDT 09/04/2024 3:41 PM CDT Robert Finley MD PhD LAB MICROBIOLOGY - NERAL ORDERABLES Final Result Performing Organization Address [facility] de Phone Number STEFANI [address] [employer] [place] [address] * (ABNORMAL) Urinalysis, microscopic only (09/04/2024 1:59 PM CDT) WBC, ur 0-5 0 - 5 /HPF Comment:Testing performed by : [address] [address] RBC, ur 3-5(A) 0 - 2 /HPF STEFANI Comment:Testing performed by : [address] [address] Epithelial cells, squamous, ur >50(A) 0 - 5 /HPF STEFANI Comment:Testing performed by : [address] [address] Bacteria, ur Trace(A) STEFANI Comment:Testing performed by : [address] [address] Culture Reflex Comment Reflex conditions for urine culture (WBC >10) not met. STEFANI Comment:Testing performed by : [address] [address] Urine, bladder 09/04/2024 1: 59 PM CDT 09/04/2024 3:41 PM CDT Robert Finley MD PhD LAB URINE ORDERABLES Final Result Performing Organization Address [facility] Co de Phone Number [place] [phone] [facility] [employer] [place] [address] * eGFR (09/04/2024 12:36 PM CDT) eGFR >90 >=60 mL/min/1. 73 m2 Comment: Interpretive Data Reference Interval Normal >/= 90 mL/min/1.73m2 Mildly decreased* 60 - 89 mL/min/1.73m2 Mildly to moderately decreased 45 - 59 mL/min/1.73m2 Moderately to severely decreased 30 - 44 mL/min/1.73m2 Severely decreased 15 - 29 mL/min/1.73m2 Kidney Failure < 15 mL/min/1.73m2 *Relative to young adult level Estimated glomerular filtration rate is determined by the 2020 CKD-EPI equation recommended by the National Kidney Foundation (A Unifying Approach to GFR Estimation: Recommendations of the NKF-ASK Task Force on Reassessing the Inclusion of Race in Diagnosing Kidney Disease, JASN 2020). The CKD-EPI equation should not be used for patients with unstable renal function and has not been validated in children and those over 70. Current interpretive data was last reviewed 2021. Testing performed by: [address] [address] Blood 09/04/2024 12:3 6 PM CDT 09/04/2024 12:37 PM CDT us Robert Finley MD PhD LAB BLOOD ORDERABLES Final Result [facility] [address] [facility] Department [place] [address] * Differential, auto (09/04/2024 12:36 PM CDT) Neutrophil abs 4.09 1.50 - 6.50 K/cumm Comment:Testing performed by : [address] [address] Imm gran abs 0.01 0.00 - 0.10 K/cumm STEFANI Comment:Testing performed by : [address] [address] Lymphocyte abs 2.08 0.80 - 3.30 K/cumm STEFANI Comment:Testing performed by : [address] [address] Monocyte abs 0.47 0.20 - 0.80 K/cumm STEFANI Comment:Testing performed by : [address] [address] Eosinophil abs 0.09 0.00 - 0.50 K/cumm [facility] Comment:Testing performed by : [address] [address] Basophil abs 0.02 0.00 - 0.10 K/cumm [facility]ERCHRISTIANA Comment:Testing performed by : [address] [address] Neutrophil pct 60.5 % [facility] Comment: Interpretive Data Percent cell count reference ranges are not reported, since discordance with absolute values may lead to misinterpretation of CBC data. Current Interpretive Data was last revised on 2017. Testing performed by: [address] [address] Imm gran pct 0.1 % [facility] Comment: Interpretive Data Percent cell count reference ranges are not reported, since discordance with absolute values may lead to misinterpretation of CBC data. Current Interpretive Data was last revised on 2017. Testing performed by: [address] [address] Lymphocyte pct 30.8 % [facility] Comment: Interpretive Data Percent cell count reference ranges are not reported, since discordance with absolute values may lead to misinterpretation of CBC data. Current Interpretive Data was last revised on 2017. Testing performed by: [address] [address] Monocyte pct 7.0 % [facility] Comment: Interpretive Data Percent cell count reference ranges are not reported, since discordance with absolute values may lead to misinterpretation of CBC data. Current Interpretive Data was last revised on 2017. Testing performed by: [address] [address] Eosinophil pct 1.3 % [facility] Comment: Interpretive Data Percent cell count reference ranges are not reported, since discordance with absolute values may lead to misinterpretation of CBC data. Current Interpretive Data was last revised on 2017. Testing performed by: [address] [address] Basophil pct 0.3 % [facility] Comment: Interpretive Data Percent cell count reference ranges are not reported, since discordance with absolute values may lead to misinterpretation of CBC data. Current Interpretive Data was last revised on 2017. Testing performed by: [address] [address] Blood 09/04/2024 12:3 6 PM CDT 09/04/2024 12:37 PM CDT Robert Finley MD PhD LAB BLOOD ORDERABLES Final Result STEFANI [address] [facility] Department [place] [address] * CBC with auto differential (09/04/2024 12:36 PM CDT) WBC 6.76 3.80 - 9.90 K/cumm Comment:Testing performed by : [address] [address] Hgb 12.3 11.9 - 15.5 g/dL STEFANI Comment:Testing performed by : [address] [address] Hct 37.3 35.6 - 45.5 % STEFANI Comment:Testing performed by : [address] [address] Plt 289 150 - 400 K/cumm STEFANI Comment:Testing performed by : [address] [address] MPV 9.1 9.1 - 12.3 fL STEFANI Comment:Testing performed by : [address] [address] RBC 4.09 3.90 - 5.20 M/cumm STEFANI Comment:Testing performed by : [address] [address] MCV 91.2 81.3 - 96.4 fL STEFANI Comment:Testing performed by : [address] [address] MCH 30.1 27.1 - 33.3 pg STEFANI Comment:Testing performed by : [address] [address] MCHC 33.0 32.3 - 35.7 g/dL STEFANI SUERO Comment:Testing performed by : [address] [address] RDW CV 14.1 11.1 - 14.9 % STEFANI SUERO Comment:Testing performed by : [address] [address] RDW SD 46.5 35.7 - 48.1 fL STEFANI Comment:Testing performed by : [address] [address] NRBC abs 0.00 0.00 - 0.01 K/cumm STEFANI Comment:Testing performed by : [address] [address] ANC Prelim 4.09 1.50 - 6.50 K/cumm STEFANI Comment: Interpretive Data The rapid ANC is a preliminary automated count and may vary from the final ANC (Neut Abs) reported in the WBC differential that follows. Current interpretive data was last revised 2024. Testing performed by: [address] [address] Blood 09/04/2024 12:3 6 PM CDT 09/04/2024 12:37 PM CDT us Robert Finley MD PhD LAB BLOOD ORDERABLES Final Result [facility] [address] [facility] Department of Laboratories [place], [place] [id number] * TSH (09/04/2024 12:36 PM CDT) Thyroid Stimulating Hormone 2.42 0.30 - 4.20 mcIUnit/mL Comment:Testing performed by : [address] [address] Blood 09/04/2024 12:3 6 PM CDT 09/04/2024 1:37 PM CDT us Robert Finley MD PhD LAB BLOOD ORDERABLES Final Result STEFANI [address] [facility] Department [place] [address] * Comprehensive metabolic panel (09/04/2024 12:36 PM CDT) Sodium 140 135 - 145 mmol/L Comment:Testing performed by : [address] [address] Potassium, pl 4.1 3.3 - 4.9 mmol/L STEFANI Comment:Testing performed by : [address] [address] Chloride 104 97 - 110 mmol/L STEFANI Comment:Testing performed by : [address] [address] CO2 26 22 - 32 mmol/L STEFANI Comment:Testing performed by : [address] [address] Anion gap 10 2 - 15 mmol/L STEFANI Comment:Testing performed by : [address] [address] BUN 19 6 - 25 mg/dL STEFANI Comment:Testing performed by : [address] [address] Creatinine 0.60 0.60 - 1.10 mg/dL STEFANI Comment:Testing performed by : [address] [address] Glucose 141 70 - 199 mg/dL STEFANI Comment: Interpretive Data Fasting glucose >/= 126 mg/dl is diagnostic for diabetes. Fasting is defined as no caloric intake for at least 8 hours. Fasting glucose between 100 mg/dl to 125 mg/dl is diagnostic of prediabetes. In a patient with classic symptoms of hyperglycemia or hyperglycemic crisis, a random glucose >/= 200 mg/dl is diagnostic for diabetes. In the absence of unequivocal hyperglycemia, results should be confirmed by repeat testing. The classification and Diagnosis of Diabetes Diabetes Care 2021; 46: S19-S40. Current interpretive data was last revised 2022. Testing performed by: [address] [address] Calcium 9.7 8.5 - 10.3 mg/dL STEFANI Comment:Testing performed by : [address] [address] Bilirubin, total 0.2 0.1 - 1.2 mg/dL STEFANI Comment:Testing performed by : [address] [address] Protein, pl 7.0 6.5 - 8.5 g/dL STEFANI Comment:Testing performed by : [address] [address] Albumin 4.3 3.5 - 5.0 g/dL STEFANI Comment:Testing performed by : [address] [address] Alk phos 94 40 - 130 Units/L STEFANI Comment:Testing performed by : [address] [address] ALT 15 7 - 45 Units/L STEFANI Comment:Testing performed by : [address] [address] AST 18 10 - 45 Units/L STEFANI Comment:Testing performed by : [address] [address] Blood 09/04/2024 12:3 6 PM CDT 09/04/2024 12:37 PM CDT us Robert Finley MD PhD LAB BLOOD ORDERABLES Final Result Performing Organization Address City/State/[facility] Co me Phone Number STEFANI [address] [facility] Department [place] [address] * CT Chest Abdomen Pelvis W Contrast (08/30/2024 9:20 AM CDT) Anatomical Region Laterality Modality Body N/A Computed Tomogra phy 09/04/2024 11:0 9 AM CDT Narrative 09/04/2024 11:30 AM CDT EXAM DESCRIPTION: CT CHEST ABDOMEN PELVIS W CONTRAST REASON FOR STUDY: Restaging of lung cancer Restaging of lung cancer, Malignant neoplasm of upper lobe of right lung (HCC) Dx 2022 Port and DNC 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 Status post gamma knife to 8 lesions August 2022 and chemo and immunotherapy. Repeat gamma knife to left temporal lobe lesion February 20. TECHNIQUE: CT scan of the chest, abdomen, and pelvis performed with intravenous and without oral contrast using helical scanning technique with dynamic intravenous contrast injection. Reconstructed coronal and sagittal MPR images reviewed. All images stored on PACS. Automated exposure control was used as a dose optimization technique for this examination. CONTRAST TYPE/DOSE: 100mL of IOVERSOL 350 MG IODINE/ML INTRAVENOUS SYRINGE injected via intravenous COMPARISON: 08/24/2022, 06/13/2024, 03/22/2024, 12/09/2023, 09/20/2023 REFERENCE: Per ACR white paper recommendations, unless otherwise specified no follow-up imaging is recommended for incidental renal and adrenal lesions per consensus recommendations based on imaging criteria. Further lab evaluation could be pursued based on clinical findings. FINDINGS: CHEST HARDWARE/LINES/TUBES: Right chest wall port is partially visualized with catheter tip terminating in the right atrium. VASCULATURE: Mild atherosclerotic changes of the thoracic aorta and its major branches. No thoracic aortic aneurysm. MEDIASTINUM/HEART: Heart size within normal limits. No significant pericardial effusion. Esophagus is unremarkable. CORONARY ARTERY CALCIFICATION: No significant coronary atherosclerotic calcifications. LYMPH NODES: No significant interval change in mildly prominent subcarinal and right hilar lymph nodes for example: Subcarinal lymph node measures 0.9 cm in short axis, unchanged (3; 44). Right hilar lymph node measures 0.8 cm in short axis, unchanged (3; 50). No new pathologically enlarged lymphadenopathy. AIRWAY: Central airways are patent. LUNGS: Background of mild emphysematous changes. Minimal biapical pleural-parenchymal scarring. No focal consolidation, pneumothorax, or pleural effusion. Near-complete resolution of previously seen FDG avid anterior right upper lobe irregular nodule with persistent 2 mm nodularity (such as 4; 46). Small pulmonary nodules including: Unchanged 3 mm anterior subpleural left lower lobe pulmonary nodule (4; 75). Unchanged 2 mm subpleural anterior left upper lobe pulmonary nodule (4; 20). Unchanged 3 mm perifissural nodule along the left oblique fissure, likely fissural lymph node (4; 44). Unchanged 3 mm perifissural nodule along the right oblique fissure likely a fissural lymph node (4; 49). No new suspicious pulmonary nodules. BONES/SOFT TISSUES: No significant abnormality. Normal-appearing thyroid. ABDOMEN/PELVIS LIVER: No concerning lesions. GALLBLADDER/BILE DUCTS: No acute cholecystitis. No significant intrahepatic or extrahepatic biliary ductal dilatation. SPLEEN: Normal size. No focal concerning lesions. PANCREAS: No significant ductal dilatation or discrete lesion. ADRENALS: No measurable nodule. KIDNEYS/URETERS: Subcentimeter low-attenuation lesions which are too small to further characterize, likely benign and do not require imaging follow-up (Bosniak II). No hydronephrosis. Minimal urothelial thickening of the bilateral renal pelvis and proximal ureters (such as 7; 69). No obstructing nephroureterolithiasis. BLADDER/URINARY: Decompressed. REPRODUCTIVE: Similar-appearing retroflexed leiomyomatous uterus. No concerning adnexal lesion, although the ovaries are poorly evaluated by CT. GASTROINTESTINAL: No dilated bowel loops. No obvious wall thickening. Normal-appearing appendix. LYMPH NODES: No pathologically enlarged abdominal or pelvic lymphadenopathy. PERITONEUM/RETROPERITONEUM: No ascites or free air. VASCULATURE ABDOMEN: Multifocal atherosclerotic changes of the abdominal aorta and its major branches. No abdominal aortic aneurysm. 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 No central mesenteric arterial occlusion. MUSCULOSKELETAL ABDOMEN PELVIS: Mild degenerative changes of the lumbar spine. No aggressive appearing osseous lesions. No acute osseous abnormality. OTHER: No significant abnormality. IMPRESSION: Near-complete resolution of previously seen FDG avid right upper lobe nodule with persistent 2 mm nodularity. No new suspicious pulmonary nodules. Unchanged mildly prominent right hilar and subcarinal lymph nodes. No new pathologically enlarged lymphadenopathy. No evidence of metastatic disease in the abdomen or pelvis. Minimal urothelial thickening of the bilateral renal pelvis and proximal ureters. Recommend correlation with patient's symptoms and urinalysis as clinically appropriate. Incidental and chronic findings as above. THIS IS AN ELECTRONICALLY VERIFIED FINAL REPORT 09/04/2024 11:30 AM - Electronically signed by Arian Stewart M.D. 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 Status post gamma knife to 8 lesionsApril 2022 and chemo and immunotherapy. Repeat gamma knife to left temporallobe lesion February 20. TECHNIQUE: CT scan of the chest, abdomen, and pelvis performed with intravenous and without oral contrast using helical scanning techniquewith dynamic intravenous contrast injection. Reconstructed coronal and sagittalMPR images reviewed. All images stored on PACS. Automated exposure control was used as a dose optimization technique for this examination. CONTRAST TYPE/DOSE: 100mL of IOVERSOL 350 MG IODINE/ML INTRAVENOUS SYRINGE injected via intravenous COMPARISON: 08/24/2022, 06/13/2024, 03/22/2024, 12/09/2023, 09/20/2023 REFERENCE: Per ACR white paper recommendations, unless otherwise specifiedno follow-up imaging is recommended for incidental renal and adrenal lesionsper consensus recommendations based on imaging criteria. Further labevaluation could be pursued based on clinical findings. FINDINGS: CHEST HARDWARE/LINES/TUBES: Right chest wall port is partially visualized with catheter tip terminating in the right atrium. VASCULATURE: Mild atherosclerotic changes of the thoracic aorta and itsmajor branches. No thoracic aortic aneurysm. MEDIASTINUM/HEART: Heart size within normal limits. No significant pericardial effusion. Esophagus is unremarkable. CORONARY ARTERY CALCIFICATION: No significant coronary atherosclerotic calcifications. LYMPH NODES: No significant interval change in mildly prominentsubcarinal and right hilar lymph nodes for example: Subcarinal lymph node measures0.9 cm in short axis, unchanged (3; 44). Right hilar lymph node measures 0.8 cmin short axis, unchanged (3; 50). No new pathologically enlarged lymphadenopathy. AIRWAY: Central airways are patent. LUNGS: Background of mild emphysematous changes. Minimal biapical pleural-parenchymal scarring. No focal consolidation, pneumothorax, or pleural effusion. Near-complete resolution of previously seen FDG avid anterior right upperlobe irregular nodule with persistent 2 mm nodularity (such as 4; 46). Small pulmonary nodules including: Unchanged 3 mm anterior subpleural left lower lobe pulmonary nodule (4;75). Unchanged 2 mm subpleural anterior left upper lobe pulmonary nodule (4;20). Unchanged 3 mm perifissural nodule along the left oblique fissure, likely fissural lymph node (4; 44). Unchanged 3 mm perifissural nodule along the right oblique fissure likelya fissural lymph node (4; 49). No new suspicious pulmonary nodules. BONES/SOFT TISSUES: No significant abnormality. Normal-appearingthyroid. ABDOMEN/PELVIS LIVER: No concerning lesions. GALLBLADDER/BILE DUCTS: No acute cholecystitis. No significantintrahepatic or extrahepatic biliary ductal dilatation. SPLEEN: Normal size. No focal concerning lesions. PANCREAS: No significant ductal dilatation or discrete lesion. ADRENALS: No measurable nodule. KIDNEYS/URETERS: Subcentimeter low-attenuation lesions which are toosmall to further characterize, likely benign and do not require imaging follow-up (Bosniak II). No hydronephrosis. Minimal urothelial thickening of the bilateral renal pelvis and proximal ureters (such as 7; 69). Noobstructing nephroureterolithiasis. BLADDER/URINARY: Decompressed. REPRODUCTIVE: Similar-appearing retroflexed leiomyomatous uterus. No concerning adnexal lesion, although the ovaries are poorly evaluated byCT. GASTROINTESTINAL: No dilated bowel loops. No obvious wall thickening. Normal-appearing appendix. LYMPH NODES: No pathologically enlarged abdominal or pelviclymphadenopathy. PERITONEUM/RETROPERITONEUM: No ascites or free air. VASCULATURE ABDOMEN: Multifocal atherosclerotic changes of the abdominal aorta and its major branches. No abdominal aortic aneurysm. 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 Nocentral mesenteric arterial occlusion. MUSCULOSKELETAL ABDOMEN PELVIS: Mild degenerative changes of the lumbar spine. No aggressive appearing osseous lesions. No acute osseous abnormality. OTHER: No significant abnormality. IMPRESSION: Near-complete resolution of previously seen FDG avid right upper lobenodule with persistent 2 mm nodularity. No new suspicious pulmonary nodules. Unchanged mildly prominent right hilar and subcarinal lymph nodes. Nonew pathologically enlarged lymphadenopathy. No evidence of metastatic disease in the abdomen or pelvis. Minimal urothelial thickening of the bilateral renal pelvis and proximal ureters. Recommend correlation with patient's symptoms and urinalysis as clinically appropriate. Incidental and chronic findings as above. THIS IS AN ELECTRONICALLY VERIFIED FINAL REPORT 09/04/2024 11:30 AM - Electronically signed by Arianjia Stewart M.D. NS: NS Report ID: [id number] Reading Location: [id number] us Robert Finley MD PhD IMG CT PROCEDURES Fin al Result * eGFR (08/14/2024 7:36 AM CDT) eGFR >90 >=60 mL/min/1. 73 m2 Comment: Interpretive Data Reference Interval Normal >/= 90 mL/min/1.73m2 Mildly decreased* 60 - 89 mL/min/1.73m2 Mildly to moderately decreased 45 - 59 mL/min/1.73m2 Moderately to severely decreased 30 - 44 mL/min/1.73m2 Severely decreased 15 - 29 mL/min/1.73m2 Kidney Failure < 15 mL/min/1.73m2 *Relative to young adult level Estimated glomerular filtration rate is determined by the 2020 CKD-EPI equation recommended by the National Kidney Foundation (A Unifying Approach to GFR Estimation: Recommendations of the NKF-ASK Task Force on Reassessing the Inclusion of Race in Diagnosing Kidney Disease, JASN 2020). The CKD-EPI equation should not be used for patients with unstable renal function and has not been validated in children and those over 70. Current interpretive data was last reviewed 2021. Testing performed by: [address] [address] Blood 08/14/2024 7:36 AM CDT 08/14/2024 7:46 AM CDT us Robert Finley MD PhD LAB BLOOD ORDERABLES Final Result [facility] [address] [facility] Department [place] [address] * Differential, auto (08/14/2024 7:36 AM CDT) Neutrophil abs 2.7 1.5 - 6.5 K/cumm Comment:Testing performed by : [address] [address] Imm gran abs 0.0 0.0 - 0.1 K/cumm CERNER Comment:Testing performed by : [address] [address] Lymphocyte abs 1.6 0.8 - 3.3 K/cumm CERNER Comment:Testing performed by : [address] [address] Monocyte abs 0.4 0.2 - 0.8 K/cumm [facility] Comment:Testing performed by : [address] [address] Eosinophil abs 0.1 0.0 - 0.5 K/cumm [facility] Comment:Testing performed by : [address] [address] Basophil abs 0.0 0.0 - 0.1 K/cumm [facility] Comment:Testing performed by : [address] [address] Neutrophil pct 55.9 % [facility] Comment: Interpretive Data Percent cell count reference ranges are not reported, since discordance with absolute values may lead to misinterpretation of CBC data. Current Interpretive Data was last revised on 2017. Testing performed by: [address] [address] Imm gran pct 0.2 % [facility] Comment: Interpretive Data Percent cell count reference ranges are not reported, since discordance with absolute values may lead to misinterpretation of CBC data. Current Interpretive Data was last revised on 2017. Testing performed by: [address] [address] Lymphocyte pct 33.3 % CERNER Comment: Interpretive Data Percent cell count reference ranges are not reported, since discordance with absolute values may lead to misinterpretation of CBC data. Current Interpretive Data was last revised on 2017. Testing performed by: [address] [address] Monocyte pct 8.3 % CERNER Comment: Interpretive Data Percent cell count reference ranges are not reported, since discordance with absolute values may lead to misinterpretation of CBC data. Current Interpretive Data was last revised on 2017. Testing performed by: [address] [address] Eosinophil pct 2.1 % STEFANI SUERO Comment: Interpretive Data Percent cell count reference ranges are not reported, since discordance with absolute values may lead to misinterpretation of CBC data. Current Interpretive Data was last revised on 2017. Testing performed by: [address] [address] Basophil pct 0.2 % STEFANI SUERO Comment: Interpretive Data Percent cell count reference ranges are not reported, since discordance with absolute values may lead to misinterpretation of CBC data. Current Interpretive Data was last revised on 2017. Testing performed by: [address] [address] Blood 08/14/2024 7:36 AM CDT 08/14/2024 7:46 AM CDT us Robert Finley MD PhD LAB BLOOD ORDERABLES Final Result STEFANI [facility] Department of Laboratories [place], [place] [id number] * (ABNORMAL) CBC with auto differential (08/14/2024 7:36 AM CDT) WBC 4.8 3.8 - 9.9 K/cumm Comment:Testing performed by : [address] [address] Hgb 11.9 11.9 - 15.5 g/dL STEFANI SUERO Comment:Testing performed by : [address] [address] Hct 36.2 35.6 - 45.5 % STEFANI SUERO Comment:Testing performed by : [address] [address] Plt 333 150 - 400 K/cumm STEFANI SUERO Comment:Testing performed by : [address] [address] MPV 8.8(L) 9.1 - 12.3 fL STEFANI SUERO Comment:Testing performed by : [address] [address] RBC 3.93 3.90 - 5.20 M/cumm STEFANI SUERO Comment:Testing performed by : [address] [address] MCV 92.1 81.3 - 96.4 fL STEFANI SUERO Comment:Testing performed by : [address], [address] MCH 30.3 27.1 - 33.3 pg STEFANI SUERO Comment:Testing performed by : [address] [address] MCHC 32.9 32.3 - 35.7 g/dL STEFANI SUERO Comment:Testing performed by : [address] [address] RDW CV 14.0 11.1 - 14.9 % STEFANI Comment:Testing performed by : [address], [address] RDW SD 47.5 35.7 - 48.1 fL STEFANI Comment:Testing performed by : [address], [address] NRBC abs 0.00 0.00 - 0.01 K/cumm STEFANI Comment:Testing performed by : [address], [address] Blood 08/14/2024 7:36 AM CDT 08/14/2024 7:46 AM CDT us Robert Finley MD PhD LAB BLOOD ORDERABLES Final Result [facility] [address] [facility] Department [place] [address] * TSH (08/14/2024 7:36 AM CDT) Thyroid Stimulating Hormone 2.32 0.30 - 4.20 mcIUnit/mL Comment:Testing performed by : [address], [address] Blood 08/14/2024 7:36 AM CDT 08/14/2024 9:56 AM CDT us Robert Finley MD PhD LAB BLOOD ORDERABLES Final Result STEFANI [address] [facility] Department [place] [address] * Comprehensive metabolic panel (08/14/2024 7:36 AM CDT) Sodium 142 135 - 145 mmol/L Comment:Testing performed by : [address] [address] Potassium, pl 4.0 3.3 - 4.9 mmol/L STEFANI Comment:Testing performed by : [address] [address] Chloride 106 97 - 110 mmol/L STEFANI Comment:Testing performed by : [address] [address] CO2 26 22 - 32 mmol/L STEFANI Comment:Testing performed by : [address] [address] Anion gap 10 2 - 15 mmol/L STEFANI Comment:Testing performed by : [address] [address] BUN 20 6 - 25 mg/dL STEFANI Comment:Testing performed by : [address] [address] Creatinine 0.60 0.60 - 1.10 mg/dL STEFANI Comment:Testing performed by : [address] [address] Glucose 120 70 - 199 mg/dL STEFANI Comment: Interpretive Data Fasting glucose >/= 126 mg/dl is diagnostic for diabetes. Fasting is defined as no caloric intake for at least 8 hours. Fasting glucose between 100 mg/dl to 125 mg/dl is diagnostic of prediabetes. In a patient with classic symptoms of hyperglycemia or hyperglycemic crisis, a random glucose >/= 200 mg/dl is diagnostic for diabetes. In the absence of unequivocal hyperglycemia, results should be confirmed by repeat testing. The classification and Diagnosis of Diabetes Diabetes Care 202; 46: S19-S40. Current interpretive data was last revised 2022. Testing performed by: [facility], [address] [place] [address]., [address] Calcium 9.5 8.5 - 10.3 mg/dL STEFANI Comment:Testing performed by : [address] [address] Bilirubin, total 0.2 0.1 - 1.2 mg/dL STEFANI Comment:Testing performed by : [address] [address] Protein, pl 6.8 6.5 - 8.5 g/dL STEFANI Comment:Testing performed by : [address] [address] Albumin 4.1 3.5 - 5.0 g/dL STEFANI Comment:Testing performed by : [address] [address] Alk phos 92 40 - 130 Units/L STEFANI Comment:Testing performed by : [address] [address] ALT 19 7 - 45 Units/L STEAFNI Comment:Testing performed by : [address] [address] AST 19 10 - 45 Units/L STEFANI Comment:Testing performed by : [address] [address] Blood 08/14/2024 7:36 AM CDT 08/14/2024 7:46 AM CDT us Robert Finley MD PhD LAB BLOOD ORDERABLES Final Result STEFANI [address] [facility] Department [place] [address] * eGFR (07/24/2024 12:47 PM HEALTH INSURANCE ADJUSTER) eGFR >90 >=60 mL/min/1. 73 m2 Comment: Interpretive Data Reference Interval Normal >/= 90 mL/min/1.73m2 Mildly decreased* 60 - 89 mL/min/1.73m2 Mildly to moderately decreased 45 - 59 mL/min/1.73m2 Moderately to severely decreased 30 - 44 mL/min/1.73m2 Severely decreased 15 - 29 mL/min/1.73m2 Kidney Failure < 15 mL/min/1.73m2 *Relative to young adult level Estimated glomerular filtration rate is determined by the 2020 CKD-EPI equation recommended by the National Kidney Foundation (A Unifying Approach to GFR Estimation: Recommendations of the NKF-ASK Task Force on Reassessing the Inclusion of Race in Diagnosing Kidney Disease, JASN 202). The CKD-EPI equation should not be used for patients with unstable renal function and has not been validated in children and those over 70. Current interpretive data was last reviewed 2021. Testing performed by: [address] [address] Blood 07/24/2024 12:4 7 PM HEALTH INSURANCE ADJUSTER 07/24/2024 12:48 PM HEALTH INSURANCE ADJUSTER Robert Finley MD PhD LAB BLOOD ORDERABLES Final Result [facility] Department [place] [address] * Differential, auto (07/24/2024 12:47 PM HEALTH INSURANCE ADJUSTER) Neutrophil abs 5.4 1.5 - 6.5 K/cumm Comment:Testing performed by : [address] [address] Imm gran abs 0.0 0.0 - 0.1 K/cumm STEFANI Comment:Testing performed by : [address] [address] Lymphocyte abs 2.1 0.8 - 3.3 K/cumm STEFANI Comment:Testing performed by : [address] [address] Monocyte abs 0.5 0.2 - 0.8 K/cumm STEFANI Comment:Testing performed by : [address] [address] Eosinophil abs 0.1 0.0 - 0.5 K/cumm STEFANI Comment:Testing performed by : [address] [address] Basophil abs 0.0 0.0 - 0.1 K/sheritam STEFANI Comment:Testing performed by : [address] [address] Neutrophil pct 65.8 % STEFANI Comment: Interpretive Data Percent cell count reference ranges are not reported, since discordance with absolute values may lead to misinterpretation of CBC data. Current Interpretive Data was last revised on 2017. Testing performed by: [address] [address] Imm gran pct 0.2 % STEFANI Comment: Interpretive Data Percent cell count reference ranges are not reported, since discordance with absolute values may lead to misinterpretation of CBC data. Current Interpretive Data was last revised on 2017. Testing performed by: [address] [address] Lymphocyte pct 25.7 % [facility] Comment: Interpretive Data Percent cell count reference ranges are not reported, since discordance with absolute values may lead to misinterpretation of CBC data. Current Interpretive Data was last revised on 2017. Testing performed by: [address] [address] Monocyte pct 6.4 % [facility] Comment: Interpretive Data Percent cell count reference ranges are not reported, since discordance with absolute values may lead to misinterpretation of CBC data. Current Interpretive Data was last revised on 2017. Testing performed by: [address] [address] Eosinophil pct 1.7 % STEFANI Comment: Interpretive Data Percent cell count reference ranges are not reported, since discordance with absolute values may lead to misinterpretation of CBC data. Current Interpretive Data was last revised on 2017. Testing performed by: [address] [address] Basophil pct 0.2 % STEFANI Comment: Interpretive Data Percent cell count reference ranges are not reported, since discordance with absolute values may lead to misinterpretation of CBC data. Current Interpretive Data was last revised on 2017. Testing performed by: [address] [address] Blood 07/24/2024 12:4 7 PM HEALTH INSURANCE ADJUSTER 07/24/2024 12:49 PM HEALTH INSURANCE ADJUSTER us Robert Finley MD PhD LAB BLOOD ORDERABLES Final Result [facility] [address] [facility] Department [place] [address] * (ABNORMAL) CBC with auto differential (07/24/2024 12:47 PM HEALTH INSURANCE ADJUSTER) WBC 8.2 3.8 - 9.9 K/cumm Comment:Testing performed by : [address] [address] Hgb 11.9 11.9 - 15.5 g/dL STEFANI Comment:Testing performed by : [address] [address] Hct 36.4 35.6 - 45.5 % STEFANI Comment:Testing performed by : [address] [address] Plt 295 150 - 400 K/cumm STEFANI Comment:Testing performed by : [address] [address] MPV 9.0(L) 9.1 - 12.3 fL STEFANI Comment:Testing performed by : [address] [address] RBC 3.97 3.90 - 5.20 M/cumm STEFANI Comment:Testing performed by : [address] [address] MCV 91.7 81.3 - 96.4 fL STEFANI Comment:Testing performed by : [address] [address] MCH 30.0 27.1 - 33.3 pg STEFANI SUERO Comment:Testing performed by : [address] [address] MCHC 32.7 32.3 - 35.7 g/dL STEFANI SUERO Comment:Testing performed by : [address] [address] RDW CV 14.4 11.1 - 14.9 % STEFANI Comment:Testing performed by : [address] [address] RDW SD 48.4(H) 35.7 - 48.1 fL STEFANI Comment:Testing performed by : [address] [address] NRBC abs 0.00 0.00 - 0.01 K/cumm STEFANI Comment:Testing performed by : [address], [address] Blood 07/24/2024 12:4 7 PM HEALTH INSURANCE ADJUSTER 07/24/2024 12:49 PM HEALTH INSURANCE ADJUSTER us Robert Finley MD PhD LAB BLOOD ORDERABLES Final Result Performing Organization Address City/[facility] Co de Phone Number STEFANI [address] [place] [place] [address] * TSH (07/24/2024 12:47 PM HEALTH INSURANCE ADJUSTER) Thyroid Stimulating Hormone 2.03 0.30 - 4.20 mcIUnit/mL Comment:Testing performed by : [address], [address] Blood 07/24/2024 12:4 7 PM HEALTH INSURANCE ADJUSTER 07/24/2024 1:51 PM HEALTH INSURANCE ADJUSTER us Robert Finley MD PhD LAB BLOOD ORDERABLES Final Result Performing Organization Address City/[facility] Co de Phone Number [address] [place] [address] * Comprehensive metabolic panel (07/24/2024 12:47 PM HEALTH INSURANCE ADJUSTER) Sodium 141 135 - 145 mmol/L Comment:Testing performed by : [address], [address] Potassium, pl 3.8 3.3 - 4.9 mmol/L STEFANI SUERO Comment:Testing performed by : [address], [place]., [address] Chloride 104 97 - 110 mmol/L STEFANI Comment:Testing performed by : [address], [place]., [address] CO2 27 22 - 32 mmol/L STEFANI Comment:Testing performed by : [address], [place]., [address] Anion gap 10 2 - 15 mmol/L STEFANI Comment:Testing performed by : [address], [place]., [address] BUN 18 6 - 25 mg/dL STEFANI Comment:Testing performed by : [address], [place]., [address] Creatinine 0.60 0.60 - 1.10 mg/dL STEFANI Comment:Testing performed by : [address], [place]., [address] Glucose 137 70 - 199 mg/dL STEFANI Comment: Interpretive Data Fasting glucose >/= 126 mg/dl is diagnostic for diabetes. Fasting is defined as no caloric intake for at least 8 hours. Fasting glucose between 100 mg/dl to 125 mg/dl is diagnostic of prediabetes. In a patient with classic symptoms of hyperglycemia or hyperglycemic crisis, a random glucose >/= 200 mg/dl is diagnostic for diabetes. In the absence of unequivocal hyperglycemia, results should be confirmed by repeat testing. The classification and Diagnosis of Diabetes Diabetes Care 2021; 46: S19-S40. Current interpretive data was last revised 2022. Testing performed by: [address] [address] Calcium 9.4 8.5 - 10.3 mg/dL STEFANI Comment:Testing performed by : [address] [address] Bilirubin, total 0.2 0.1 - 1.2 mg/dL STEFANI Comment:Testing performed by : [address], [place]., [address] Protein, pl 6.9 6.5 - 8.5 g/dL STEFANI Comment:Testing performed by : [address], [place]., [address] Albumin 4.1 3.5 - 5.0 g/dL STEFANI Comment:Testing performed by : [address] [address] Alk phos 98 40 - 130 Units/L STEFANI Comment:Testing performed by : [address] [address] ALT 26 7 - 45 Units/L STEFANI Comment:Testing performed by : [address] [address] AST 19 10 - 45 Units/L STEFANI Comment:Testing performed by : [address], [address] Blood 07/24/2024 12:4 7 PM HEALTH INSURANCE ADJUSTER 07/24/2024 12:48 PM HEALTH INSURANCE ADJUSTER us Robert Finley MD PhD LAB BLOOD ORDERABLES Final Result STEFANI [address] [facility] Department [place] [address] * RAD ONC ARIA COURSE SUMMARY (07/12/2024 10:11 AM HEALTH INSURANCE ADJUSTER) Course Name C3 2024 ARIA Course Plan Date 07/12/2024 8:25 AM ARIA Elapsed Days 0 ARIA Course Intent Unknown ARIA Treatment Start Date 07/12/2024 ARIA Treatment Site A:[id number] ariet ARIA Dose Given To Date (cGy) 2,000 ARIA Session Dosage Given (cGy) 0 ARIA Plan ID GTV 10-11 ARIA Fractions Treated 1 ARIA Prescribed Dose Per Fraction (cGy) 2,000 ARIA Prescribed Total Dose (cGy) 2,000 ARIA 07/12/2024 10:1 1 AM HEALTH INSURANCE ADJUSTER us Not In File Miscellaneous RADIATION ONCOLOGY ORD ERABLES Final Result ARIA * RAD ONC ARIA SESSION SUMMARY (07/12/2024 9:39 AM HEALTH INSURANCE ADJUSTER) Course Name C3 GK 2024 ARIA Course Plan Date 07/12/2024 8:25 AM ARIA Elapsed Days 0 ARIA Course Intent Unknown ARIA Treatment Start Date 07/12/2024 ARIA Treatment Site A:[id number] ariet ARIA Dose Given To Date (cGy) 2,000 ARIA Session Dosage Given (cGy) 2,000 ARIA Plan ID GTV 10-11 ARIA Fractions Treated 1 ARIA Prescribed Dose Per Fraction (cGy) 2,000 ARIA Prescribed Total Dose (cGy) 2,000 ARIA 07/12/2024 9:39 AM HEALTH INSURANCE ADJUSTER us Not In File Miscellaneous RADIATION ONCOLOGY ORD ERABLES Final Result ARIA * MRI Brain Gamma Knife W WO Contrast (07/09/2024 11:35 AM HEALTH INSURANCE ADJUSTER) Anatomical Region Laterality Modality Head and Neck N/A Magnetic Resonan ce 07/09/2024 12:2 3 PM HEALTH INSURANCE ADJUSTER Impressions 07/09/2024 12:23 PM HEALTH INSURANCE ADJUSTER 2 contrast-enhancing lesions for radiation therapy planning, as detailed above. Findings discussed with Marcelino Hendrix at 1223 hours 07/09/2024. Electronically signed by: Darby Maldonado M.D. Narrative 07/09/2024 12:23 PM HEALTH INSURANCE ADJUSTER EXAMINATION: Magnetic resonance imaging (MRI) of the brain and brainstem without and with contrast HISTORY: Gamma Knife treatment planning Dx: Metastasis to brain (HCC) [C79.31 (ICD-10-CM)] TECHNIQUE: Several 3D high resolution MRI scans without and with contrast were obtained for radiation oncology planing. Contrast information: 18 mL Gadoterate Meglumine COMPARISON: MR brain dated 05/31/2024 FINDINGS: Lesions identified which are potentially targets for radiation therapy are described on axial reformats of 3D post-contrast T1 images (series 401): 4 mm lesion in left medial parietal lobe, image 102, increase in size as compared to prior study. 4 mm lesion in medial right occipital lobe, image 74, increased in size as compared to prior study. Multiple prior treated lesions demonstrate FLAIR signal and no enhancement. No evidence of leptomeningeal disease, significant intra-lesional acute hemorrhage, hydrocephalus, or midline shift. Scattered paranasal mucosal thickening and right mastoid effusion. Procedure Note Darby Mejia MD - 07/09/2024 EXAMINATION: Magnetic resonance imaging (MRI) of the brain and brainstem without and with contrast HISTORY: Gamma Knife treatment planning Dx: Metastasis to brain (HCC) [C79.31 (ICD-10-CM)] TECHNIQUE: Several 3D high resolution MRI scans without and with contrast were obtained for radiation oncology planing. Contrast information: 18 mL Gadoterate Meglumine COMPARISON: MR brain dated 05/31/2024 FINDINGS: Lesions identified which are potentially targets for radiation therapy are described on axial reformats of 3D post-contrast T1 images (series 401): 4 mm lesion in left medial parietal lobe, image 102, increase in size as compared to prior study. 4 mm lesion in medial right occipital lobe, image 74, increased in size as compared to prior study. Multiple prior treated lesions demonstrate FLAIR signal and no enhancement. No evidence of leptomeningeal disease, significant intra-lesional acute hemorrhage, hydrocephalus, or midline shift. Scattered paranasal mucosal thickening and right mastoid effusion. IMPRESSION: 2 contrast-enhancing lesions for radiation therapy planning, as detailed above. Findings discussed with Marcelino Hendrix at 1223 hours 07/09/2024. Electronically signed by: Darby Maldonado M.D. Veronica Sullivan MD [facility] MRI PROCEDURES Fi nal Result * eGFR (06/26/2024 1:02 PM HEALTH INSURANCE ADJUSTER) eGFR >90 >=60 mL/min/1. 73 m2 Comment: Interpretive Data Reference Interval Normal >/= 90 mL/min/1.73m2 Mildly decreased* 60 - 89 mL/min/1.73m2 Mildly to moderately decreased 45 - 59 mL/min/1.73m2 Moderately to severely decreased 30 - 44 mL/min/1.73m2 Severely decreased 15 - 29 mL/min/1.73m2 Kidney Failure < 15 mL/min/1.73m2 *Relative to young adult level Estimated glomerular filtration rate is determined by the 2020 CKD-EPI equation recommended by the National Kid[employer] (A Unifying Approach to GFR Estimation: Recommendations of the NKF-ASK Task Force on Reassessing the Inclusion of Race in Diagnosing Kidney Disease, JASN 2020). The CKD-EPI equation should not be used for patients with unstable renal function and has not been validated in children and those over 70. Current interpretive data was last reviewed 2021. Testing performed by: [address] [address] Blood 06/26/2024 1:02 PM HEALTH INSURANCE ADJUSTER 06/26/2024 1:03 PM HEALTH INSURANCE ADJUSTER us Robert Finley MD PhD LAB BLOOD ORDERABLES Final Result STEFANI [address] [facility] Department [place] [address] * Differential, auto (06/26/2024 1:02 PM HEALTH INSURANCE ADJUSTER) Neutrophil abs 3.2 1.5 - 6.5 K/cumm Comment:Testing performed by : [address] [address] Imm gran abs 0.0 0.0 - 0.1 K/cumm STEFANI Comment:Testing performed by : [address] [address] Lymphocyte abs 2.0 0.8 - 3.3 K/cumm STEFANI Comment:Testing performed by : [address] [address] Monocyte abs 0.5 0.2 - 0.8 K/cumm STEFANI Comment:Testing performed by : [address] [address] Eosinophil abs 0.1 0.0 - 0.5 K/cumm STEFANI Comment:Testing performed by : [address] [address] Basophil abs 0.0 0.0 - 0.1 K/cumm STEFANI Comment:Testing performed by : [address] [place] [address] Neutrophil pct 55.0 % [facility] Comment: Interpretive Data Percent cell count reference ranges are not reported, since discordance with absolute values may lead to misinterpretation of CBC data. Current Interpretive Data was last revised on 2017. Testing performed by: [address] [address] Imm gran pct 0.3 % [facility] Comment: Interpretive Data Percent cell count reference ranges are not reported, since discordance with absolute values may lead to misinterpretation of CBC data. Current Interpretive Data was last revised on 2017. Testing performed by: [address] [address] Lymphocyte pct 34.3 % [facility] Comment: Interpretive Data Percent cell count reference ranges are not reported, since discordance with absolute values may lead to misinterpretation of CBC data. Current Interpretive Data was last revised on 2017. Testing performed by: [address] [address] Monocyte pct 8.5 % [facility] Comment: Interpretive Data Percent cell count reference ranges are not reported, since discordance with absolute values may lead to misinterpretation of CBC data. Current Interpretive Data was last revised on 2017. Testing performed by: [address] [address] Eosinophil pct 1.6 % [facility] Comment: Interpretive Data Percent cell count reference ranges are not reported, since discordance with absolute values may lead to misinterpretation of CBC data. Current Interpretive Data was last revised on 2017. Testing performed by: [address] [address] Basophil pct 0.3 % [facility] Comment: Interpretive Data Percent cell count reference ranges are not reported, since discordance with absolute values may lead to misinterpretation of CBC data. Current Interpretive Data was last revised on 2017. Testing performed by: [address] [address] Blood 06/26/2024 1:02 PM HEALTH INSURANCE ADJUSTER 06/26/2024 1:03 PM HEALTH INSURANCE ADJUSTER us Robert Finley MD PhD LAB BLOOD ORDERABLES Final Result [facility] [address] [facility] Department of Laboratories [place], [place] [id number] * (ABNORMAL) CBC with auto differential (06/26/2024 1:02 PM HEALTH INSURANCE ADJUSTER) WBC 5.7 3.8 - 9.9 K/cumm Comment:Testing performed by : [address] [address] Hgb 12.8 11.9 - 15.5 g/dL STEFANI Comment:Testing performed by : [address] [address] Hct 38.8 35.6 - 45.5 % STEFANI Comment:Testing performed by : [address] [address] Plt 350 150 - 400 K/cumm STEFANI Comment:Testing performed by : [address] [address] MPV 8.7(L) 9.1 - 12.3 fL STEFANI Comment:Testing performed by : [address] [address] RBC 4.22 3.90 - 5.20 M/cumm STEFANI Comment:Testing performed by : [address] [address] MCV 91.9 81.3 - 96.4 fL STEFANI Comment:Testing performed by : [address] [address] MCH 30.3 27.1 - 33.3 pg STEFANI Comment:Testing performed by : [address] [address] MCHC 33.0 32.3 - 35.7 g/dL STEFANI Comment:Testing performed by : [address] [address] RDW CV 14.3 11.1 - 14.9 % STEFANI Comment:Testing performed by : [address], [address] RDW SD 47.9 35.7 - 48.1 fL STEFANI SUERO Comment:Testing performed by : [address] [address] NRBC abs 0.00 0.00 - 0.01 K/cumm STEFANI SUERO Comment:Testing performed by : [address] [address] Blood 06/26/2024 1:02 PM HEALTH INSURANCE ADJUSTER 06/26/2024 1:03 PM HEALTH INSURANCE ADJUSTER Robert Finley MD PhD LAB BLOOD ORDERABLES Final Result Performing Organization Address City/[facility]/ZIP Co de Phone Number [address] [place] [address] * TSH (06/26/2024 1:02 PM HEALTH INSURANCE ADJUSTER) Pathologist [facility] Thyroid Stimulating Hormone 1.09 0.30 - 4.20 mcIUnit/mL Comment:Testing performed by : [address] [address] Blood 06/26/2024 1:02 PM HEALTH INSURANCE ADJUSTER 06/26/2024 1:42 PM HEALTH INSURANCE ADJUSTER Robert Finley MD PhD LAB BLOOD ORDERABLES Final Result Performing Organization Address City/[facility] Co de Phone Number [address] [address] * Comprehensive metabolic panel (06/26/2024 1:02 PM HEALTH INSURANCE ADJUSTER) Sodium 142 135 - 145 mmol/L Comment:Testing performed by : [address] [address] Potassium, pl 4.0 3.3 - 4.9 mmol/L STEFANI SUERO Comment:Testing performed by : [address] [address] Chloride 106 97 - 110 mmol/L STEFANI SUERO Comment:Testing performed by : [address] [address] CO2 26 22 - 32 mmol/L STEFANI Comment:Testing performed by : [address] [address] Anion gap 10 2 - 15 mmol/L STEFANI Comment:Testing performed by : [address] [address] BUN 16 6 - 25 mg/dL STEFANI Comment:Testing performed by : [address], [place]., [address] Creatinine 0.60 0.60 - 1.10 mg/dL STEFANI Comment:Testing performed by : [address] [address] Glucose 110 70 - 199 mg/dL STEFANI Comment: Interpretive Data Fasting glucose >/= 126 mg/dl is diagnostic for diabetes. Fasting is defined as no caloric intake for at least 8 hours. Fasting glucose between 100 mg/dl to 125 mg/dl is diagnostic of prediabetes. In a patient with classic symptoms of hyperglycemia or hyperglycemic crisis, a random glucose >/= 200 mg/dl is diagnostic for diabetes. In the absence of unequivocal hyperglycemia, results should be confirmed by repeat testing. The classification and Diagnosis of Diabetes Diabetes Care 2021; 46: S19-S40. Current interpretive data was last revised 2022. Testing performed by: [address] [address] Calcium 9.5 8.5 - 10.3 mg/dL STEFANI Comment:Testing performed by : [address] [address] Bilirubin, total 0.3 0.1 - 1.2 mg/dL STEFANI Comment:Testing performed by : [address] [address] Protein, pl 7.2 6.5 - 8.5 g/dL STEFANI Comment:Testing performed by : [address] [address] Albumin 4.2 3.5 - 5.0 g/dL STEFANI Comment:Testing performed by : [address] [address] Alk phos 98 40 - 130 Units/L CERCHRISTIANA SUERO Comment:Testing performed by : [facility], [address] [place] [address]., [address] ALT 22 7 - 45 Units/L STEFANI SUERO Comment:Testing performed by : [facility], [address] [place] [address]., [address] AST 19 10 - 45 Units/L STEFANI SUERO Comment:Testing performed by : [facility], [address] [place] [address]., [address] Blood 06/26/2024 1:02 PM HEALTH INSURANCE ADJUSTER 06/26/2024 1:03 PM HEALTH INSURANCE ADJUSTER us Robert Finley MD PhD LAB BLOOD ORDERABLES Final Result STEFANI [address] [facility] Department [place] [address] from Last 3 Months Insurance [place] [address] [place] [address] [place] [address] Advance Directives For more information, please contact: [phone] * Full Code (Latest Code Status on File) Date Activated Date Inactivated Comments 11/19/2022 7:26 AM 11/20/2022 4:54 AM Care Teams Line Analyst Relationship Specialty Start Date End Date Jarocho Ruggiero MD PCP - General Internal Medicine 08/20/22 Robert Finley MD PhD [address] [place] [address] MEDICAL ONCOLOGY, [address] [address] Consulting Physician Medical Oncology 10/05/22 Jarrett Lofton MD [address] [place] [address] MEDICAL ONCOLOGY, [address] [address] Consulting Physician Neurosurgery 11/18/22
--- OUTSIDE RECORDS SUMMARY | 2024-09-12 13:06 | XMS_ITS | Referral Summary ---
Author Organization [facility] Address [address] [place] [address] Care Team Providers Care Party Plan Selling Distributor Name Role Phone Jarocho Ruggiero MD Primary Care Provider [phone] Robert Finley MD PhD Unavailable Jarrett Lofton MD Unavailable Encounters Date Type Department Care Team Description 09/04/2024 Orders Only [facility] [address] [place] [address] [address] [place] [address] Robert Finley MD PhD 09/04/2024 12:45 PM CDT Clinical Support [facility] at [address] [address] Malignant neoplasm of upper lobe of right lung (HCC) 09/04/2024 1:45 PM CDT Infusion [facility] at [address] [phone] Malignant neoplasm of upper lobe of right lung (HCC) (Primary Dx) 09/04/2024 1:15 PM CDT Office Visit [facility] [address] [place] [address] [address] [place] [address] Robert Finley MD PhD Malignant neoplasm of upper lobe of right lung (HCC) (Primary Dx) 08/30/2024 8:08 AM CDT - 08/30/2024 11:59 PM CDT Hospital Encounter [facility] [address] [place] [address] Malignant neoplasm of upper lobe of right lung (HCC) Discharge Disposition: Discharge to home or self care 08/14/2024 Orders Only [facility] [address] [place] [phone] Loretta Mckeon RN 08/14/2024 8:00 AM CDT Infusion [address] [address] Malignant neoplasm of upper lobe of right lung (HCC) (Primary Dx) 08/14/2024 7:30 AM CDT Clinical Support [address] [address] Malignant neoplasm of upper lobe of right lung (HCC) 08/09/2024 Orders Only [facility] [address] [place] [address] [address] [place] [address] Lisa Vides, CLIVE 08/09/2024 Orders Only [facility] [address] [place] [phone] Robert Finley MD PhD 07/26/2024 Orders Only [facility]fusion [address] [facility] Floor [address] [place] [address] Danika Landry [facility] 07/24/2024 Orders Only [facility] [address] [place] [phone] Robert Finley MD PhD 07/24/2024 12:45 PM FLAP LINING BINDER Clinical Support [address] [address] Malignant neoplasm of upper lobe of right lung (HCC) 07/24/2024 1:45 PM FLAP LINING BINDER Infusion [address] [address] Malignant neoplasm of upper lobe of right lung (HCC) (Primary Dx) 07/24/2024 1:15 PM FLAP LINING BINDER Office Visit [facility] [address] [place] [address] [place] [phone] Robert Finley MD PhD Malignant neoplasm of upper lobe of right lung (HCC) (Primary Dx) 07/13/2024 Telephone [facility] [address] [place] [address] Brad Carter RN Follow-up 07/12/2024 6:35 AM FLAP LINING BINDER - 07/12/2024 11:59 PM FLAP LINING BINDER Hospital Encounter [facility] [address] [place] [address] Veronica Sullivan MD Discharge Disposition: Discharge to home or self care 07/12/2024 Orders Only RAD ONC TREATMENTS Miscellaneous, Not In File 07/12/2024 Orders Only RAD ONC TREATMENTS Miscellaneous, Not In File 07/12/2024 9:00 AM FLAP LINING BINDER - 07/12/2024 11:59 PM FLAP LINING BINDER Hospital Encounter [facility] [address] [place] [address] Veronica Sullivan MD Discharge Disposition: Discharge to home or self care 07/12/2024 6:30 AM FLAP LINING BINDER Procedure visit [facility] [address] [place] [address] Jarrett Lofton MD Perkins, Stephanie Mabry, MD Metastasis to brain (HCC) (Primary Dx) 07/10/2024 Documentation [facility] [address] [place] [address] Vianca Alonzo, CLIVE Gamma Knife/Radiosurgery (Insurance Pre-Authorization) 07/09/2024 Documentation [facility] [address] [facility] [place] [address] Vianca Alonzo, CLIVE Gamma Knife/Radiosurgery (GK MRI) 07/09/2024 10:00 AM FLAP LINING BINDER Office Visit [facility] [address] [place] [address] Veronica [facility] MD Malignant neoplasm metastatic to brain (HCC) [C79.31] (Primary Dx) 07/09/2024 9:52 AM FLAP LINING BINDER - 07/09/2024 11:59 PM FLAP LINING BINDER Hospital Encounter [facility] [address] [place] [address] Metastasis to brain (HCC) Discharge Disposition: Discharge to home or self care 07/09/2024 9:52 AM FLAP LINING BINDER - 07/09/2024 11:59 PM FLAP LINING BINDER Hospital Encounter [facility] [address] [place] [address] Veronica Sullivan MD Discharge Disposition: Discharge to home or self care 07/06/2024 Telephone [facility] [address] [place] [address] Brad Carter RN 06/26/2024 Orders Only [facility] [address] [place] [phone] Robert Finley MD PhD 06/26/2024 1:45 PM FLAP LINING BINDER Infusion [address] [place] [address] Malignant neoplasm of upper lobe of right lung (HCC) (Primary Dx) 06/26/2024 12:45 PM FLAP LINING BINDER Clinical Support [address] [address] Malignant neoplasm of upper lobe of right lung (HCC) 06/26/2024 1:15 PM FLAP LINING BINDER Office Visit [facility] [address] [place] [phone] Robert Finley MD PhD Malignant neoplasm of upper lobe of right lung (HCC) (Primary Dx); Malignant neoplasm metastatic to brain (HCC) 06/15/2024 Telephone [facility] [address] [place] [address] Loretta Mckeon RN from Last 3 Months Allergies No known active allergies Medications acetaminophen [...] Sullivan MD on 07/12/2024 Brain mass 08/21/2022 Immunizations Immunization Administration Dates Next Due Hep B Vaccine 01/01/2005,07/03/2004,06/05/2004 Influenza, Trivalent, Cell C ulture-based MDCK, Preservative Free, Antibiotic Free, Intramuscular 03/11/2023 MMR 07/03/2004 Social History Tobacco Use Types Packs/Day Years [...] on file Legal Sex Female 5:44 PM FLAP LINING BINDER Gender Identity Female 08/27/2022 2:35 PM CDT Sexual Orientation Not on file Last Filed Vital Signs Vital Sign Reading [...] 09/04/2024 1:26 PM CDT Plan of Treatment Not on file Medical Devices Implanted 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 Shelf Expiration Date Model / Serial / Lot [employer] Xcela Power Port 8fr [id number] - [id number] Implanted:Qty: 1 on 11/19/2022 at [facility] [employer] 04/25/2027 [id number] / / [id number] Procedures Procedure Name Priority Date/Time Associated Diagnosis [...] lung (HCC) EGFR STAT 07/24/2024 12:47 PM FLAP LINING BINDER Malignant neoplasm of upper lobe of right lung (HCC) DIFFERENTIAL AUTO Routine 07/24/2024 12: 47 PM FLAP LINING BINDER Malignant neoplasm of upper lobe of right lung (HCC) CBC WITH AUTO DIFFERENTIAL Routine 07/24/2024 12:47 PM FLAP LINING BINDER Malignant neoplasm of upper lobe of right lung (HCC) COMPREHENSIVE METABOLIC PANEL STAT 07/24/2024 12:47 PM FLAP LINING BINDER Malignant neoplasm of upper lobe of right lung (HCC) TSH Routine 07/24/2024 12:47 PM FLAP LINING BINDER Malignant neoplasm of upper lobe of right lung (HCC) RAD ONC ARIA COURSE SUMMARY 07/12/2024 10:11 AM FLAP LINING BINDER RAD ONC ARIA SESSION SUMMARY 07/12/2024 9:39 AM FLAP LINING BINDER MRI BRAIN GAMMA KNIFE W WO CONTRAST Schedule Routine, Read Routine (OP Routine) 07/09/2024 11:35 AM FLAP LINING BINDER Metastasis to brain (HCC) EGFR STAT 06/26/2024 1:02 PM FLAP LINING BINDER Malignant neoplasm of upper lobe of right lung (HCC) DIFFERENTIAL AUTO Routine 06/26/2024 1:0 2 PM FLAP LINING BINDER Malignant neoplasm of upper lobe of right lung (HCC) CBC WITH AUTO DIFFERENTIAL Routine 06/26/2024 1:02 PM FLAP LINING BINDER Malignant neoplasm of upper lobe of right lung (HCC) COMPREHENSIVE METABOLIC PANEL STAT 06/26/2024 1:02 PM FLAP LINING BINDER Malignant neoplasm of upper lobe of right lung (HCC) TSH Routine 06/26/2024 1:02 PM FLAP LINING BINDER Malignant neoplasm of upper lobe of right lung (HCC) from Last 3 Months Results * (ABNORMAL) Urinalysis reflex to microscopic and culture Urine, bladder (09/04/2024 1:59 PM CDT) Color, ur Yellow Yellow Comment:Testing performed by : [address] [address] Clarity, ur Clear Clear STEFANI Comment:Testing performed by : [address] [address] Specific gravity, ur 1.013 1.003 - 1.030 STEFANI Comment:Testing performed by : [address] [address] pH, urine 5.5 ST[facility]ANI Comment: Interpretive Data U rine pH is affected by diet, medications, systemic acid-base disturbances, and renal tubular function. pH may affect urinary stone formation. For example, urine pH below 6.0 may help reduce the tendency for calcium phosphate stones and pH greater than 6.0 may reduce the tendency for uric acid stone formation. Source: [facility] zhouwu Current Interpretive Data was last revised on 2017 Testing performed by: [address] [address] Protein, ur ql Negative Negative STEFANI Comment:Testing performed by : [address] [address] Glucose, ur ql Negative Negative STEFANI Comment:Testing performed by : [address] [address] Ketones, ur Negative Negative ST[facility]ANI SUERO Comment:Testing performed by : [facility], [address] [place] [address], [place]., [address] Bilirubin, ur Negative Negative STEFANI SUERO Comment:Testing performed by : [address], [place]., [address] Blood, ur 1+(A) Negative STEFANI SUERO Comment:Testing performed by : [address], [place]., [address] Urobilinogen, ur <2.0 <2.0 mg/dL [facility] SUERO Comment:Testing performed by : [address], [place]., [address] Nitrite, ur Negative Negative STEFANI Comment:Testing performed by : [address], [place]., [address] Leukocyte esterase, ur Negative Negative STEFANI Comment:Testing performed by : [address], [place]., [address] UA reflex comment Reflex to microscopic UA will be performed. STEFANI Comment:Testing performed by : [address], [place]., [address] Urine, bladder 09/04/2024 1: 59 PM CDT 09/04/2024 3:41 PM CDT Robert Finley MD PhD LAB MICROBIOLOGY - [facility] ORDERABLES Final Result [facility] [address] [facility] Department of Laboratories [place], [place] [id number] * (ABNORMAL) Urinalysis, microscopic only (09/04/2024 1:59 PM CDT) WBC, ur 0-5 0 - 5 /HPF Comment:Testing performed by : [address], [place]., [address] RBC, ur 3-5(A) 0 - 2 /HPF ST[facility] SUERO Comment:Testing performed by : [address], [place]., [address] Epithelial cells, squamous, ur >50(A) 0 - 5 /HPF [facility] SUERO Comment:Testing performed by : [address], [place]., [address] Bacteria, ur Trace(A) STEFANI Comment:Testing performed by : [address] [address] Culture Reflex Comment Reflex conditions for urine culture (WBC >10) not met. STEFANI Comment:Testing performed by : [address] [address] Urine, bladder 09/04/2024 1: 59 PM CDT 09/04/2024 3:41 PM CDT Robert Finley MD PhD LAB URINE ORDERABLES Final Result [facility] [address] [facility] Department [place] [address] * eGFR (09/04/2024 12:36 PM CDT) eGFR [...] was last reviewed 2021. Testing performed by: [address] [address] Blood 09/04/2024 12:3 6 PM CDT 09/04/2024 12:37 PM CDT us Robert Solis Tushar MD PhD LAB BLOOD ORDERABLES Final Result [facility] [address] [facility] Department [place] [address] * Differential, auto (09/04/2024 12:36 PM CDT) Neutrophil abs 4.09 1.50 - 6.50 K/cumm Comment:Testing performed by : [address] [address] Imm gran abs 0.01 0.00 - 0.10 K/cumm STEFANI Comment:Testing performed by : [address] [address] Lymphocyte abs 2.08 0.80 - 3.30 K/cumm STEFANI Comment:Testing performed by : [address] [address] Monocyte abs 0.47 0.20 - 0.80 K/cumm STEFANI Comment:Testing performed by : [address] [address] Eosinophil abs 0.09 0.00 - 0.50 K/cumm STEFANI Comment:Testing performed by : [address] [address] Basophil abs 0.02 0.00 - 0.10 K/cumm STEFANI Comment:Testing performed by : [address] [address] Neutrophil pct 60.5 % [facility] Comment: Interpretive Data Percent cell count reference ranges are not reported, since discordance with absolute values may lead to misinterpretation of CBC data. Current Interpretive Data was last revised on 2017. Testing performed by: [address] [address] Imm gran pct 0.1 % STEFANI Comment: Interpretive Data Percent cell count reference ranges are not reported, since discordance with absolute values may lead to misinterpretation of CBC data. Current Interpretive Data was last revised on 2017. Testing performed by: [address] [address] Lymphocyte pct 30.8 % [facility] Comment: Interpretive Data Percent cell count reference ranges are not reported, since discordance with absolute values may lead to misinterpretation of CBC data. Current Interpretive Data was last revised on 2017. Testing performed by: [address] [address] Monocyte pct 7.0 % ST[facility] Comment: Interpretive Data Percent cell count reference ranges are not reported, since discordance with absolute values may lead to misinterpretation of CBC data. Current Interpretive Data was last revised on 2017. Testing performed by: [address] [address] Eosinophil pct 1.3 % ST[facility] Comment: Interpretive Data Percent cell count reference ranges are not reported, since discordance with absolute values may lead to misinterpretation of CBC data. Current Interpretive Data was last revised on 2017. Testing performed by: [address] [address] Basophil pct 0.3 % [facility] Comment: Interpretive Data Percent cell count reference ranges are not reported, since discordance with absolute values may lead to misinterpretation of CBC data. Current Interpretive Data was last revised on 2017. Testing performed by: [address] [address] Blood 09/04/2024 12:3 6 PM CDT 09/04/2024 12:37 PM CDT us Robert Finley MD PhD LAB BLOOD ORDERABLES Final Result [facility] [address] [facility] Department of Laboratories [place], [place] [id number] * CBC with auto differential (09/04/2024 12:36 PM CDT) WBC 6.76 3.80 - 9.90 K/cumm Comment:Testing performed by : [address] [address] Hgb 12.3 11.9 - 15.5 g/dL STEFANI Comment:Testing performed by : [address] [place] [address] Hct 37.3 35.6 - 45.5 % [facility] Comment:Testing performed by : [address], [address] Plt 289 150 - 400 K/cumm STEFANI Comment:Testing performed by : [address], [address] MPV 9.1 9.1 - 12.3 fL STEFANI Comment:Testing performed by : [address], [address] RBC 4.09 3.90 - 5.20 M/cumm STEFANI Comment:Testing performed by : [address], [address] MCV 91.2 81.3 - 96.4 fL STEFANI Comment:Testing performed by : [address], [address] MCH 30.1 27.1 - 33.3 pg STEFANI Comment:Testing performed by : [address], [address] MCHC 33.0 32.3 - 35.7 g/dL STEFANI Comment:Testing performed by : [address], [address] RDW CV 14.1 11.1 - 14.9 % STEFANI Comment:Testing performed by : [address], [address] RDW SD 46.5 35.7 - 48.1 fL STEFANI Comment:Testing performed by : [address], [address] NRBC abs 0.00 0.00 - 0.01 K/cumm STEFANI Comment:Testing performed by : [address], [address] ANC Prelim 4.09 1.50 - 6.50 K/cumm STEFANI Comment: Interpretive Data The rapid ANC is a preliminary automated count and may vary from the final ANC (Neut Abs) reported in the WBC differential that follows. Current interpretive data was last revised 2024. Testing performed by: [address] [place]., [address] Blood 09/04/2024 12:3 6 PM CDT 09/04/2024 12:37 PM CDT Robert Finley MD PhD LAB BLOOD ORDERABLES Final Result Performing Organization Address [facility] Co de Phone Number [address] [address] * TSH (09/04/2024 12:36 PM CDT) Pathologist [facility] Thyroid Stimulating Hormone 2.42 0.30 - 4.20 mcIUnit/mL Comment:Testing performed by : [address] [address] Blood 09/04/2024 12:3 6 PM CDT 09/04/2024 1:37 PM CDT Robert Finley MD PhD LAB BLOOD ORDERABLES Final Result Performing Organization Address [facility] Co de Phone Number [address] [address] * Comprehensive metabolic panel (09/04/2024 12:36 PM CDT) Pathologist [facility] Sodium 140 135 - 145 mmol/L Comment:Testing performed by : [address] [address] Potassium, pl 4.1 3.3 - 4.9 mmol/L STEFANI Comment:Testing performed by : [address] [address] Chloride 104 97 - 110 mmol/L STEFANI Comment:Testing performed by : [address] [address] CO2 26 22 - 32 mmol/L ST[facility] Comment:Testing performed by : [address] [address] Anion gap 10 2 - 15 mmol/L ST[facility]ANI Comment:Testing performed by : [address] [address] BUN 19 6 - 25 mg/dL [facility] Comment:Testing performed by : [address] [address] Creatinine 0.60 0.60 - 1.10 mg/dL ST[facility]ANI Comment:Testing performed by : [address] [address] Glucose 141 70 - 199 mg/dL [facility] Comment: Interpretive Data Fasting glucose >/= 126 [...] was last revised 2022. Testing performed by: [address] [address] Calcium 9.7 8.5 - 10.3 mg/dL [facility] Comment:Testing performed by : [address] [address] Bilirubin, total 0.2 0.1 - 1.2 mg/dL [facility] Comment:Testing performed by : [address] [address] Protein, pl 7.0 6.5 - 8.5 g/dL [facility] Comment:Testing performed by : [address] [address] Albumin 4.3 3.5 - 5.0 g/dL [facility] Comment:Testing performed by : [address] [address] Alk phos 94 40 - 130 Units/L [facility] Comment:Testing performed by : [address] [address] ALT 15 7 - 45 Units/L [facility] Comment:Testing performed by : [address] [address] AST 18 10 - 45 Units/L [facility] SUERO Comment:Testing performed by : [facility], [address] [place] [address], [place]., [address] Blood 09/04/2024 12:3 6 PM CDT 09/04/2024 12:37 PM CDT us Robert Finley MD PhD LAB BLOOD ORDERABLES Final Result [facility] [address] [facility] Department [place] [address] * CT Chest Abdomen Pelvis W Contrast [...] Arian Stewart M.D. NS: NS Report ID: [id number] Reading Location: [place] [address] Procedure Note Arian Stewart MD - 09/04/2024 [...] Arian Stewart M.D. NS: NS Report ID: [id number] Reading Location: [place] [address] Robert Finley MD PhD IMG CT PROCEDURES [...] was last reviewed 2021. Testing performed by: [address] [address] Blood 08/14/2024 7:36 AM CDT 08/14/2024 7:46 AM CDT us Robert Finley MD PhD LAB BLOOD ORDERABLES Final Result [facility] [address] [facility] Department [place] [address] * Differential, auto (08/14/2024 7:36 AM CDT) Neutrophil abs 2.7 1.5 - 6.5 K/cumm Comment:Testing performed by : [address] [address] Imm gran abs 0.0 0.0 - 0.1 K/cumm STEFANI Comment:Testing performed by : [address] [address] Lymphocyte abs 1.6 0.8 - 3.3 K/cumm STEFANI Comment:Testing performed by : [address] [address] Monocyte abs 0.4 0.2 - 0.8 K/cumm STEFANI Comment:Testing performed by : [address] [address] Eosinophil abs 0.1 0.0 - 0.5 K/cumm STEFANI Comment:Testing performed by : [address] [address] Basophil abs 0.0 0.0 - 0.1 K/cumm STEFANI Comment:Testing performed by : [address] [address] Neutrophil pct 55.9 % [facility] Comment: Interpretive Data Percent cell count reference ranges are not reported, since discordance with absolute values may lead to misinterpretation of CBC data. Current Interpretive Data was last revised on 2017. Testing performed by: [address] [address] Imm gran pct 0.2 % [facility] Comment: Interpretive Data Percent cell count reference ranges are not reported, since discordance with absolute values may lead to misinterpretation of CBC data. Current Interpretive Data was last revised on 2017. Testing performed by: [address] [address] Lymphocyte pct 33.3 % [facility] Comment: Interpretive Data Percent cell count reference ranges are not reported, since discordance with absolute values may lead to misinterpretation of CBC data. Current Interpretive Data was last revised on 2017. Testing performed by: [address] [address] Monocyte pct 8.3 % [facility] Comment: Interpretive Data Percent cell count reference ranges are not reported, since discordance with absolute values may lead to misinterpretation of CBC data. Current Interpretive Data was last revised on 2017. Testing performed by: [address] [address] Eosinophil pct 2.1 % [facility] Comment: Interpretive Data Percent cell count reference ranges are not reported, since discordance with absolute values may lead to misinterpretation of CBC data. Current Interpretive Data was last revised on 2017. Testing performed by: [address] [address] Basophil pct 0.2 % [facility] Comment: Interpretive Data Percent cell count reference ranges are not reported, since discordance with absolute values may lead to misinterpretation of CBC data. Current Interpretive Data was last revised on 2017. Testing performed by: [address] [address] Blood 08/14/2024 7:36 AM CDT 08/14/2024 7:46 AM CDT us Robert Finley MD PhD LAB BLOOD ORDERABLES Final Result [facility] [address] [facility] Department [place] [address] * (ABNORMAL) CBC with auto differential (08/14/2024 7:36 AM CDT) WBC 4.8 3.8 - 9.9 K/cumm Comment:Testing performed by : [address] [address] Hgb 11.9 11.9 - 15.5 g/dL [facility] Comment:Testing performed by : [address] [address] Hct 36.2 35.6 - 45.5 % [facility] Comment:Testing performed by : [address] [address] Plt 333 150 - 400 K/cumm STEFANI Comment:Testing performed by : [address] [address] MPV 8.8(L) 9.1 - 12.3 fL [facility] Comment:Testing performed by : [address], [address] RBC 3.93 3.90 - 5.20 M/cumm ST[facility]ANI Comment:Testing performed by : [address] [address] MCV 92.1 81.3 - 96.4 fL [facility] Comment:Testing performed by : [address] [address] MCH 30.3 27.1 - 33.3 pg [facility] Comment:Testing performed by : [address] [address] MCHC 32.9 32.3 - 35.7 g/dL [facility] Comment:Testing performed by : [address] [address] RDW CV 14.0 11.1 - 14.9 % [facility] Comment:Testing performed by : [address] [address] RDW SD 47.5 35.7 - 48.1 fL [facility] Comment:Testing performed by : [address] [address] NRBC abs 0.00 0.00 - 0.01 K/cumm [facility] SUERO Comment:Testing performed by : [address] [address] Blood 08/14/2024 7:36 AM CDT 08/14/2024 7:46 AM CDT Robert Finley MD PhD LAB BLOOD ORDERABLES Final Result Performing Organization Address [facility] de Phone Number [address] [place] [address] * TSH (08/14/2024 7:36 AM CDT) [facility] Thyroid Stimulating Hormone 2.32 0.30 - 4.20 mcIUnit/mL Comment:Testing performed by : [address] [address] Blood 08/14/2024 7:36 AM CDT 08/14/2024 9:56 AM CDT us Robert Finley MD PhD LAB BLOOD ORDERABLES Final Result Performing Organization Address [facility] de Phone Number [address] [address] * Comprehensive metabolic panel (08/14/2024 7:36 AM CDT) Pathologist [facility] Sodium 142 135 - 145 mmol/L Comment:Testing performed by : [address] [address] Potassium, pl 4.0 3.3 - 4.9 mmol/L [facility] Comment:Testing performed by : [address] [address] Chloride 106 97 - 110 mmol/L [facility] Comment:Testing performed by : [address] [address] CO2 26 22 - 32 mmol/L [facility] Comment:Testing performed by : [address] [address] Anion gap 10 2 - 15 mmol/L [facility] Comment:Testing performed by : [address] [address] BUN 20 6 - 25 mg/dL [facility] Comment:Testing performed by : [address] [address] Creatinine 0.60 0.60 - 1.10 mg/dL [facility] Comment:Testing performed by : [address] [address] Glucose 120 70 - 199 mg/dL [facility] Comment: Interpretive Data Fasting glucose >/= 126 [...] was last revised 2022. Testing performed by: [address] [address] Calcium 9.5 8.5 - 10.3 mg/dL [facility] Comment:Testing performed by : [address] [address] Bilirubin, total 0.2 0.1 - 1.2 mg/dL [facility] Comment:Testing performed by : [address] [address] Protein, pl 6.8 6.5 - 8.5 g/dL [facility] Comment:Testing performed by : [address] [address] Albumin 4.1 3.5 - 5.0 g/dL [facility] Comment:Testing performed by : [address] [address] Alk phos 92 40 - 130 Units/L [facility] Comment:Testing performed by : [address] [address] ALT 19 7 - 45 Units/L [facility] Comment:Testing performed by : [facility], [address] [place] [address]., [address] AST 19 10 - 45 Units/L [facility] Comment:Testing performed by : [facility], [address] [place] [address]., [address] Blood 08/14/2024 7:36 AM CDT 08/14/2024 7:46 AM CDT Robert Finley MD PhD LAB BLOOD ORDERABLES Final Result [facility] [place] [address] * eGFR (07/24/2024 12:47 PM FLAP LINING BINDER) eGFR >90 >=60 mL/min/1. 73 m2 Comment: [...] was last reviewed 2021. Testing performed by: [facility], [address] [place] [address]., [address] Blood 07/24/2024 12:4 7 PM [employer]ER 07/24/2024 12:48 PM [employer]ING [employer]ER us Robert Finley MD PhD LAB BLOOD ORDERABLES Final Result [facility] [address] Department [place] [address] * Differential, auto (07/24/2024 12:47 PM [employer]ING [employer]INDER) Neutrophil abs 5.4 1.5 - 6.5 K/cumm Comment:Testing performed by : [address] [address] Imm gran abs 0.0 0.0 - 0.1 K/cumm [facility] Comment:Testing performed by : [address] [address] Lymphocyte abs 2.1 0.8 - 3.3 K/cumm [facility] Comment:Testing performed by : [address] [address] Monocyte abs 0.5 0.2 - 0.8 K/cumm [facility] Comment:Testing performed by : [address] [address] Eosinophil abs 0.1 0.0 - 0.5 K/cumm [facility] Comment:Testing performed by : [address] [address] Basophil abs 0.0 0.0 - 0.1 K/cumm [facility] Comment:Testing performed by : [address] [address] Neutrophil pct 65.8 % [facility] Comment: Interpretive Data Percent cell count reference ranges are not reported, since discordance with absolute values may lead to misinterpretation of CBC data. Current Interpretive Data was last revised on 2017. Testing performed by: [address] [address] Imm gran pct 0.2 % [facility] Comment: Interpretive Data Percent cell count reference ranges are not reported, since discordance with absolute values may lead to misinterpretation of CBC data. Current Interpretive Data was last revised on 2017. Testing performed by: [address] [address] Lymphocyte pct 25.7 % [facility] Comment: Interpretive Data Percent cell count reference ranges are not reported, since discordance with absolute values may lead to misinterpretation of CBC data. Current Interpretive Data was last revised on 2017. Testing performed by: [address] [address] Monocyte pct 6.4 % [facility] Comment: Interpretive Data Percent cell count reference ranges are not reported, since discordance with absolute values may lead to misinterpretation of CBC data. Current Interpretive Data was last revised on 2017. Testing performed by: [address] [address] Eosinophil pct 1.7 % [facility] Comment: Interpretive Data Percent cell count reference ranges are not reported, since discordance with absolute values may lead to misinterpretation of CBC data. Current Interpretive Data was last revised on 2017. Testing performed by: [address] [address] Basophil pct 0.2 % [facility] Comment: Interpretive Data Percent cell count reference ranges are not reported, since discordance with absolute values may lead to misinterpretation of CBC data. Current Interpretive Data was last revised on 2017. Testing performed by: [address] [address] Blood 07/24/2024 12:4 7 PM [employer]ING [employer]ER 07/24/2024 12:49 PM [employer]ING [employer]ER us Robert Finley MD PhD LAB BLOOD ORDERABLES Final Result [facility] [address] [facility] Department [place] [address] * (ABNORMAL) CBC with auto differential (07/24/2024 12:47 PM [employer]ING [employer]ER) WBC 8.2 3.8 - 9.9 K/cumm Comment:Testing performed by : [address] [address] Hgb 11.9 11.9 - 15.5 g/dL [facility] Comment:Testing performed by : [address] [address] Hct 36.4 35.6 - 45.5 % [facility] Comment:Testing performed by : [address] [address] Plt 295 150 - 400 K/cumm [facility] Comment:Testing performed by : [address] [address] MPV 9.0(L) 9.1 - 12.3 fL [facility] Comment:Testing performed by : [address] [address] RBC 3.97 3.90 - 5.20 M/cumm [facility] Comment:Testing performed by : [address] [address] MCV 91.7 81.3 - 96.4 fL [facility] Comment:Testing performed by : [address] [address] MCH 30.0 27.1 - 33.3 pg [facility] Comment:Testing performed by : [address] [address] MCHC 32.7 32.3 - 35.7 g/dL [facility] Comment:Testing performed by : [address] [address] RDW CV 14.4 11.1 - 14.9 % [facility] Comment:Testing performed by : [address] [address] RDW SD 48.4(H) 35.7 - 48.1 fL [facility] Comment:Testing performed by : [address] [address] NRBC abs 0.00 0.00 - 0.01 K/cumm [facility] Comment:Testing performed by : [address] [address] Blood 07/24/2024 12:4 7 PM [employer]ING [employer]ER 07/24/2024 12:49 PM [employer]ING [employer]ER us Robert Finley MD PhD LAB BLOOD ORDERABLES Final Result [facility] [address] [facility] Department [place] [address] * TSH (07/24/2024 12:47 PM [employer]ER) Thyroid Stimulating Hormone 2.03 0.30 - 4.20 mcIUnit/mL Comment:Testing performed by : [address] [address] Blood 07/24/2024 12:4 7 PM [employer]ER 07/24/2024 1:51 PM [employer]ING [employer]ER us Robert Finley MD PhD LAB BLOOD ORDERABLES Final Result [facility] [address] [facility] Department [place] [address] * Comprehensive metabolic panel (07/24/2024 12:47 PM [employer] LINING [employer]INDER) Pathologist [facility] Sodium 141 135 - 145 mmol/L Comment:Testing performed by : [address] [address] Potassium, pl 3.8 3.3 - 4.9 mmol/L [facility] Comment:Testing performed by : [address] [address] Chloride 104 97 - 110 mmol/L [facility] Comment:Testing performed by : [address] [address] CO2 27 22 - 32 mmol/L [facility] Comment:Testing performed by : [address] [address] Anion gap 10 2 - 15 mmol/L [facility] Comment:Testing performed by : [address] [address] BUN 18 6 - 25 mg/dL [facility] Comment:Testing performed by : [address] [address] Creatinine 0.60 0.60 - 1.10 mg/dL [facility] Comment:Testing performed by : [address] [address] Glucose 137 70 - 199 mg/dL [facility] [...] was last revised 2022. Testing performed by: [address] [address] Calcium 9.4 8.5 - 10.3 mg/dL [facility] Comment:Testing performed by : [address] [address] Bilirubin, total 0.2 0.1 - 1.2 mg/dL [facility] Comment:Testing performed by : [address] [address] Protein, pl 6.9 6.5 - 8.5 g/dL [facility] Comment:Testing performed by : [address] [address] Albumin 4.1 3.5 - 5.0 g/dL [facility] Comment:Testing performed by : [address] [address] Alk phos 98 40 - 130 Units/L [facility] Comment:Testing performed by : [address] [address] ALT 26 7 - 45 Units/L [facility] Comment:Testing performed by : [address] [address] AST 19 10 - 45 Units/L [facility] Comment:Testing performed by : [address] [address] Blood 07/24/2024 12:4 7 PM [employer]ER 07/24/2024 12:48 PM [employer]ING [employer]ER us Robert Finley MD PhD LAB BLOOD ORDERABLES Final Result [facility] [address] [facility] Department [place] [address] * RAD ONC ARIA COURSE SUMMARY (07/12/2024 10:11 AM [employer]AP [employer]ING BINDER) Course Name C3 GK 2024 ARIA Course Plan Date 07/12/2024 8:25 AM ARIA Elapsed Days 0 ARIA Course Intent Unknown ARIA Treatment Start Date 07/12/2024 ARIA Treatment Site [id number] ariet ARIA Dose Given To Date (cGy) 2,000 ARIA Session Dosage Given (cGy) 0 ARIA Plan ID GTV 10-11 ARIA Fractions Treated 1 ARIA Prescribed Dose Per Fraction (cGy) 2,000 ARIA Prescribed Total Dose (cGy) 2,000 ARIA 07/12/2024 10:1 1 AM FLAP LINING BINDER us Not In File Miscellaneous RADIATION ONCOLOGY ORD ERABLES Final Result [facility] * RAD ONC ARIA SESSION SUMMARY (07/12/2024 9:39 AM [employer]ING BINDER) Course Name C3 GK 5 ARIA Course Plan Date 07/12/2024 8:25 AM ARIA Elapsed Days 0 ARIA Course Intent Unknown ARIA Treatment Start Date 07/12/2024 ARIA Treatment Site [id number] ariet ARIA Dose Given To Date (cGy) 2,000 ARIA Session Dosage Given (cGy) 2,000 ARIA Plan ID GTV 10-11 ARIA Fractions Treated 1 ARIA Prescribed Dose Per Fraction (cGy) 2,000 ARIA Prescribed Total Dose (cGy) 2,000 ARIA 07/12/2024 9:39 AM FLAP [employer]ING BINDER us Not In File Miscellaneous RADIATION ONCOLOGY ORD ERABLES Final Result [facility] * MRI Brain Gamma Knife W WO Contrast (07/09/2024 11:35 AM FLAP LINING BINDER) Anatomical Region Laterality Modality Head and Neck N/A Magnetic Resonan ce 07/09/2024 12:2 3 PM [employer]ING B[employer]ER Impressions 07/09/2024 12:23 PM FLAP LINING BINDER 2 contrast-enhancing lesions for radiation therapy planning, as detailed above. Findings discussed with Marcelino Hendrix at 1223 hours 07/09/2024. Electronically signed by: Darby Maldonado M.D. Narrative 07/09/2024 12:23 PM FLAP LINING BINDER EXAMINATION: Magnetic resonance imaging (MRI) of the [...] 07/09/2024. Electronically signed by: Darby Maldonado M.D. us Veronica Sullivan MD IMG MRI PROCEDURES Fi nal Result * eGFR (06/26/2024 1:02 PM FLAP LINING BINDER) eGFR >90 >=60 mL/min/1. 73 m2 Comment: [...] was last reviewed 2021. Testing performed by: [facility], [address] [place] [address]., [address] Blood 06/26/2024 1:02 PM [employer]ING BINDER 06/26/2024 1:03 PM FLAP LINING BINDER us Robert Finley MD PhD LAB BLOOD ORDERABLES Final Result [facility] [address] [facility] Department [place] [address] * Differential, auto (06/26/2024 1:02 PM FLAP LINING BINDER) Neutrophil abs 3.2 1.5 - 6.5 K/cumm Comment:Testing performed by : [facility], [address] [place] [address], [place]., [address] Imm gran abs 0.0 0.0 - 0.1 K/cumm [facility] Comment:Testing performed by : [address], [place]., [address] Lymphocyte abs 2.0 0.8 - 3.3 K/cumm [facility] Comment:Testing performed by : [address] [address] Monocyte abs 0.5 0.2 - 0.8 K/cumm [facility] Comment:Testing performed by : [address] [address] Eosinophil abs 0.1 0.0 - 0.5 K/cumm [facility] Comment:Testing performed by : [address] [address] Basophil abs 0.0 0.0 - 0.1 K/cumm [facility] Comment:Testing performed by : [address] [address] Neutrophil pct 55.0 % [facility] Comment: Interpretive Data Percent cell count reference ranges are not reported, since discordance with absolute values may lead to misinterpretation of CBC data. Current Interpretive Data was last revised on 2017. Testing performed by: [address] [address] Imm gran pct 0.3 % [facility] Comment: Interpretive Data Percent cell count reference ranges are not reported, since discordance with absolute values may lead to misinterpretation of CBC data. Current Interpretive Data was last revised on 2017. Testing performed by: [address] [address] Lymphocyte pct 34.3 % [facility] Comment: Interpretive Data Percent cell count reference ranges are not reported, since discordance with absolute values may lead to misinterpretation of CBC data. Current Interpretive Data was last revised on 2017. Testing performed by: [address] [address] Monocyte pct 8.5 % [facility] Comment: Interpretive Data Percent cell count reference ranges are not reported, since discordance with absolute values may lead to misinterpretation of CBC data. Current Interpretive Data was last revised on 2017. Testing performed by: [address] [address] Eosinophil pct 1.6 % [facility] Comment: Interpretive Data Percent cell count reference ranges are not reported, since discordance with absolute values may lead to misinterpretation of CBC data. Current Interpretive Data was last revised on 2017. Testing performed by: [address] [address] Basophil pct 0.3 % [facility] Comment: Interpretive Data Percent cell count reference ranges are not reported, since discordance with absolute values may lead to misinterpretation of CBC data. Current Interpretive Data was last revised on 2017. Testing performed by: [address] [address] Blood 06/26/2024 1:02 PM [employer]ING BINDER 06/26/2024 1:03 PM [employer]ING B[employer]ER us Robert Finley MD PhD LAB BLOOD ORDERABLES Final Result [facility] [address] [facility] Department [place] [address] * (ABNORMAL) CBC with auto differential (06/26/2024 1:02 PM FLAP LINING BINDER) WBC 5.7 3.8 - 9.9 K/cumm Comment:Testing performed by : [address] [address] Hgb 12.8 11.9 - 15.5 g/dL [facility] Comment:Testing performed by : [address] [address] Hct 38.8 35.6 - 45.5 % [facility] Comment:Testing performed by : [address] [address] Plt 350 150 - 400 K/cumm [facility] Comment:Testing performed by : [address] [address] MPV 8.7(L) 9.1 - 12.3 fL [facility] Comment:Testing performed by : [address] [address] RBC 4.22 3.90 - 5.20 M/cumm [facility] Comment:Testing performed by : [address] [address] MCV 91.9 81.3 - 96.4 fL [facility] Comment:Testing performed by : [address] [address] MCH 30.3 27.1 - 33.3 pg [facility] Comment:Testing performed by : [address] [address] MCHC 33.0 32.3 - 35.7 g/dL [facility] Comment:Testing performed by : [address] [address] RDW CV 14.3 11.1 - 14.9 % [facility] Comment:Testing performed by : [address] [address] RDW SD 47.9 35.7 - 48.1 fL [facility] Comment:Testing performed by : [address] [address] NRBC abs 0.00 0.00 - 0.01 K/cumm [facility] Comment:Testing performed by : [address] [address] Blood 06/26/2024 1:02 PM [employer]ING BINDER 06/26/2024 1:03 PM [employer]ING B[employer]ER us Robert Finley MD PhD LAB BLOOD ORDERABLES Final Result [facility] [address] [facility] Department [place] [address] * TSH (06/26/2024 1:02 PM [employer]ER) Thyroid Stimulating Hormone 1.09 0.30 - 4.20 mcIUnit/mL Comment:Testing performed by : [address] [address] Blood 06/26/2024 1:02 PM [employer]ING B[employer]ER 06/26/2024 1:42 PM FL[employer]ING BINDER us Robert Finley MD PhD LAB BLOOD ORDERABLES Final Result [facility] [address] [facility] Department [place] [address] * Comprehensive metabolic panel (06/26/2024 1:02 PM FLAP LINING BINDER) Sodium 142 135 - 145 mmol/L Comment:Testing performed by : [address] [address] Potassium, pl 4.0 3.3 - 4.9 mmol/L [facility] Comment:Testing performed by : [address] [address] Chloride 106 97 - 110 mmol/L [facility] Comment:Testing performed by : [address] [address] CO2 26 22 - 32 mmol/L [facility] Comment:Testing performed by : [address] [address] Anion gap 10 2 - 15 mmol/L [facility] Comment:Testing performed by : [address] [address] BUN 16 6 - 25 mg/dL [facility] Comment:Testing performed by : [address] [address] Creatinine 0.60 0.60 - 1.10 mg/dL [facility] Comment:Testing performed by : [address] [address] Glucose 110 70 - 199 mg/dL [facility] [...] was last revised 2022. Testing performed by: [address] [address] Calcium 9.5 8.5 - 10.3 mg/dL [facility] Comment:Testing performed by : [address] [address] Bilirubin, total 0.3 0.1 - 1.2 mg/dL [facility] Comment:Testing performed by : [address] [address] Protein, pl 7.2 6.5 - 8.5 g/dL [facility] Comment:Testing performed by : [address] [address] Albumin 4.2 3.5 - 5.0 g/dL [facility] Comment:Testing performed by : [address] [address] Alk phos 98 40 - 130 Units/L [facility] Comment:Testing performed by : [address] [address] ALT 22 7 - 45 Units/L [facility] Comment:Testing performed by : [address] [address] AST 19 10 - 45 Units/L [facility] Comment:Testing performed by : [address] [address] Blood 06/26/2024 1:02 PM FLAP [employer]ING BINDER 06/26/2024 1:03 PM FLAP LINING BINDER us Robert Finley MD PhD LAB BLOOD ORDERABLES Final Result [facility] [address] [facility] Department [place] [address] from Last 3 Months Insurance [place] [address] Advance Directives For more information, please contact: [phone] * Full Code (Latest Code Status on File) Date Activated Date Inactivated Comments 11/19/2022 7:26 AM 11/20/2022 4:54 AM Care Teams Party Plan Selling Distributor Relationship Specialty Start Date End Date Jarocho Ruggiero MD PCP - General Internal Medicine 08/20/22 Robert Finley MD PhD [address] [facility] MEDICAL [facility], [address] [address] Consulting Physician Medical Oncology 10/05/22 Jarrett Lofton MD [address] [facility], [address] [address] Consulting Physician Neurosurgery 11/18/22
== END 2024-09-12 11:42 | disposition home or self-care (01) ==
PROVIDERS: PCP Nurse Practitioner Family; Visit Provider Nurse Practitioner Family
DX: Z12.31 Encounter for screening mammogram for malignant neoplasm of breast (principal); Z78.0 Asymptomatic menopausal state; R92.8 Other abnormal and inconclusive findings on diagnostic imaging of breast
CPT/HCPCS: 77063; 77067; 77080

== ENCOUNTER 2024-09-20 08:51 | Outpatient (CLI) | payer OTHER, SELFPAY ==
--- NOTE | ~2024-09-20 | MMUS_ITS ---
EXAMINATION: MM diagnostic ramesh RT w palomo, US breast RT limited HISTORY: Follow-up right breast asymmetry TECHNIQUE: Additional 3-D tomosynthesis images of the right breast were performed and synthetic 2-D i mages were generated. CAD analysis was submitted and interpreted. High resolution Limited right breas t ultrasound was performed. COMPARISON: Comparison to multiple prior studies sequentially, with oldest reviewed study dated 09/21. BREAST PARENCHYMAL COMPOSITION: Dense: The breasts are heterogeneously dense, which may obscure small masses FINDINGS: MAMMOGRAPHIC FINDINGS: There are no suspicious masses, calcifications or architectural distortion in the right breast to sug gest malignancy. ULTRASOUND: Limited right breast ultrasound: Normal heterogeneous echotexture without focal solid or cystic mass. IMPRESSION: 1. No evidence for malignancy in the right breast. 2. Routine yearly screening mammogram and regular clinical breast examination are recommended. BI-RADS Category 1: Negative Reviewed, dictated and finalized at location A. IMPRESSION: 1. No evidence for malignancy in the right breast. 2. Routine yearly screening mammogram and regular clinical breast examination a re recommended. BI-RADS Category 1: Negative
--- OUTSIDE RECORDS SUMMARY | 2024-09-20 09:24 | XMS_ITS | Encounter Summary ---
Author Organization [facility] Healthcare Address [address] [place] [address] Care Team Providers Care Clammer Name Role Phone Jarocho Ruggiero MD Primary Care Provider [phone] Marbella David RN Unavailable Robert Finley MD PhD Unavailable [phone] Jarrett Lofton MD Unavailable [phone] Encounter Details Date Type Department Care Team (Late st Contact Info) Description 09/28/2022 Telephone [facility] Interventional Pulmonology [address] [place], [place] [id number] Jenny Young, RN [address] [facility] [address] [place], [place] [id number] Social History Tobacco Use Types Packs/Day Years [...] on file Legal Sex Female 5:44 PM [employer] Gender Identity Female 08/27/2022 2:35 PM CDT [...] pre-procedure instructions in the mail, email, or kaleot. Instructed the patient to arrive at [facility] Admitting/Registration Office on [facility] on tomorrtuesday09/29/22 at 12:30pm (11:30am arrival [...] supply to get themselves to and from [facility]. 5. Patient stated that patient does not use a CPAP or BIPAP device. Instructed patient, if they usea CPAP or BIPAP, to bring in their device or bring documentation of their CPAP/BIPAP settings with them to their appointment. 6. The patient will need a delivery motorcycle driver or will need to arrange their [...] are familiar on the location of the [facility] Admitting Office for pre- procedure registration and any lab work that may be ordered. Discussed that the patient is not to go to the [facility] for their appointment. Confirmed they are aware of what time to arrive at the [facility] Admitting Office. 12. I reviewed the following [facility] Visitor Policy that was updated 08/2021 with [...] on filedocumented in this encounter Care Teams Clammer Relationship Specialty Start Date End Date Jarocho Ruggiero MD PCP - General Internal Medicine 08/20/22 Marbella David, RN [address] [place] [address] Nurse Navigator 08/31/22 10/07/22 Robert Finley MD PhD [address] [facility] MEDICAL ONCOLOGY, [address] [address] Consulting Physician Medical Oncology 10/05/22 Jarrett Lofton MD [address] [facility] MEDICAL [facility], [address] [place] [address] Consulting Physician Neurosurgery 11/18/22 documented as of this encounter
--- OUTSIDE RECORDS SUMMARY | 2024-09-20 09:24 | XMS_ITS | Clinical Summary ---
Author Organization [facility] Address [address] [place] [address] Care Team Providers Care Community Organization Director Name Role Phone Jarocho Ruggiero MD Primary Care Provider [phone] Rboert Finley MD PhD Unavailable [phone] Jarrett Lofton MD Unavailable [phone] Allergies No known active allergies Medications acetaminophen [...] Team Description 09/04/2024 1:45 PM CDT Infusion [facility] [address] [address] Malignant neoplasm of upper lobe of right lung (HCC) (Primary Dx) 09/04/2024 1:15 PM CDT Office Visit [facility] [address] [place] [address] [address] [place] [address] Robert Finley MD PhD Malignant neoplasm of upper lobe of right lung (HCC) (Primary Dx) 09/04/2024 12:45 PM CDT Clinical Support [facility] at [address] [address] Malignant neoplasm of upper lobe of right lung (HCC) 09/04/2024 Orders Only [facility] [address] [place] [address] [address] [place] [address] Robert Finley MD PhD 08/30/2024 8:08 AM CDT - 08/30/2024 11:59 PM CDT Hospital Encounter [facility] [address] [place] [address] Malignant neoplasm of upper lobe of right lung (HCC) Discharge Disposition: Discharge to home or self care 08/14/2024 8:00 AM CDT Infusion [address] [place] [address] Malignant neoplasm of upper lobe of right lung (HCC) (Primary Dx) 08/14/2024 7:30 AM CDT Clinical Support [address] [address] Malignant neoplasm of upper lobe of right lung (HCC) 08/14/2024 Orders Only [facility] [address] [place] [address] [address] [place] [address] Loretta Mckeon RN 08/09/2024 Orders Only [facility] [address] [place] [phone] Lisa Vides, CLIVE 08/09/2024 Orders Only [facility] [address] [place] [address] [address] [place] [address] Robert Finley MD PhD 07/26/2024 Orders Only [facility] - Infusion [address] [facility] Floor 5 [place] [address] Danika Landry [facility] 07/24/2024 1:45 PM SLATE ROOFER Infusion [address] [address] Malignant neoplasm of upper lobe of right lung (HCC) (Primary Dx) 07/24/2024 1:15 PM SLATE ROOFER Office Visit [facility] [address] [place] [address] [address] [place] [address] Robert Finley MD PhD Malignant neoplasm of upper lobe of right lung (HCC) (Primary Dx) 07/24/2024 12:45 PM SLATE ROOFER Clinical Support [facility] [address] [place] [address] Malignant neoplasm of upper lobe of right lung (HCC) 07/24/2024 Orders Only [facility] [address] [facility] [address] [place] [phone] Robert Finley MD PhD 07/13/2024 Telephone [facility] [address] [facility] [place] [address] Brad Carter RN Follow-up 07/12/2024 9:00 AM SLATE ROOFER - 07/12/2024 11:59 PM SLATE ROOFER Hospital Encounter [facility] On[facility] [address] [place] [address] Veronica Sullivan MD Discharge Disposition: Discharge to home or self care 07/12/2024 6:35 AM SLATE ROOFER - 07/12/2024 11:59 PM SLATE ROOFER Hospital Encounter [facility] Rad[facility] [place] [address] Veronica Sullivan MD Discharge Disposition: Discharge to home or self care 07/12/2024 6:30 AM SLATE ROOFER Procedure visit [facility] Oncology [address] [place] [address] Jarrett Lofton MD Perkins, Stephanie Mabry, MD Metastasis to brain (HCC) (Primary Dx) 07/12/2024 Orders Only RAD ONC TREATMENTS Miscellaneous, Not In File 07/12/2024 Orders Only RAD ONC TREATMENTS Miscellaneous, Not In File 07/10/2024 Documentation [facility] Radiation Oncology [address] [place] [address] Vianca Alonzo, CLIVE Gamma Knife/Radiosurgery (Insurance Pre-Authorization) 07/09/2024 10:00 AM SLATE ROOFER Office Visit [facility] Oncology [address] [facility] [place] [address] Veronica Sullivan MD Malignant neoplasm metastatic to brain (HCC) [C79.31] (Primary Dx) 07/09/2024 9:52 AM SLATE ROOFER - 07/09/2024 11:59 PM SLATE ROOFER Hospital Encounter [facility] Radiation Oncology [address] [place] [address] [place] [address] Veronica Sullivan MD Discharge Disposition: Discharge to home or self care 07/09/2024 9:52 AM SLATE ROOFER - 07/09/2024 11:59 PM SLATE ROOFER Hospital Encounter [facility] [address] [place] [address] Metastasis to brain (HCC) Discharge Disposition: Discharge to home or self care 07/09/2024 Documentation [facility] Radiation Oncology [address] [place] [address] [place] [address] Vianca Alonzo RN Gamma Knife/Radiosurgery (GK MRI) 07/06/2024 Telephone [facility] Radiation Oncology [address] [place] [address] Brad Carter RN 06/26/2024 1:45 PM SLATE ROOFER Infusion [address] [place] [phone] Malignant neoplasm of upper lobe of right lung (HCC) (Primary Dx) 06/26/2024 1:15 PM SLATE ROOFER Office Visit [facility] [address] [place] [address] [address] [place] [phone] Robert Finley MD PhD Malignant neoplasm of upper lobe of right lung (HCC) (Primary Dx); Malignant neoplasm metastatic to brain (HCC) 06/26/2024 12:45 PM SLATE ROOFER Clinical Support [facility] [address] [place] [address] Malignant neoplasm of upper lobe of right lung (HCC) 06/26/2024 Orders Only [facility] Oncology [address] [facility] [address] [place] [phone] Robert Finley MD PhD from Last 3 Months Immunizations Immunization Administration [...] on file Legal Sex Female 5:44 PM SLATE ROOFER Gender Identity Female 08/27/2022 2:35 PM CDT [...] (1 of 2) 08/01/1991 Covid-19 Vaccine ( season) 2024 06/04/2021, 06/06/2020, 05/19/2020 Hepatitis B Screening Completed 01/01/2005 , 07/03/2004, 06/05/2004 Influenza Vaccine Completed 03/20/2024, 03/11/2023 Medical Devices Implanted Type [facility] Therapist Device Identifier Shelf Expiration Date Model / Serial / Lot [employer] Xcela Power Port 8fr [id number] - [id number] Implanted:Qty: 1 on 11/19/2022 at [facility] [employer] 04/25/2027 [id number] / / [id number] Procedures Procedure Name Priority Date/Time Associated Diagnosis [...] lung (HCC) EGFR STAT 07/24/2024 12:47 PM SLATE ROOFER Malignant neoplasm of upper lobe of right lung (HCC) DIFFERENTIAL AUTO Routine 07/24/2024 12: 47 PM SLATE ROOFER Malignant neoplasm of upper lobe of right lung (HCC) CBC WITH AUTO DIFFERENTIAL Routine 07/24/2024 12:47 PM SLATE ROOFER Malignant neoplasm of upper lobe of right lung (HCC) COMPREHENSIVE METABOLIC PANEL STAT 07/24/2024 12:47 PM SLATE ROOFER Malignant neoplasm of upper lobe of right lung (HCC) TSH Routine 07/24/2024 12:47 PM SLATE ROOFER Malignant neoplasm of upper lobe of right lung (HCC) RAD ONC ARIA COURSE SUMMARY 07/12/2024 10:11 AM SLATE ROOFER RAD ONC ARIA SESSION SUMMARY 07/12/2024 9:39 AM SLATE ROOFER MRI BRAIN GAMMA KNIFE W WO CONTRAST Schedule Routine, Read Routine (OP Routine) 07/09/2024 11:35 AM SLATE ROOFER Metastasis to brain (HCC) EGFR STAT 06/26/2024 1:02 PM SLATE ROOFER Malignant neoplasm of upper lobe of right lung (HCC) DIFFERENTIAL AUTO Routine 06/26/2024 1:0 2 PM SLATE ROOFER Malignant neoplasm of upper lobe of right lung (HCC) CBC WITH AUTO DIFFERENTIAL Routine 06/26/2024 1:02 PM SLATE ROOFER Malignant neoplasm of upper lobe of right lung (HCC) COMPREHENSIVE METABOLIC PANEL STAT 06/26/2024 1:02 PM SLATE ROOFER Malignant neoplasm of upper lobe of right lung (HCC) TSH Routine 06/26/2024 1:02 PM SLATE ROOFER Malignant neoplasm of upper lobe of right lung (HCC) from Last 3 Months Results * (ABNORMAL) Urinalysis reflex to microscopic and culture Urine, bladder (09/04/2024 1:59 PM CDT) Color, ur Yellow Yellow Comment:Testing performed by : [address] [address] Clarity, ur Clear Clear STEFANI SUERO Comment:Testing performed by : [address] [address] Specific gravity, ur 1.013 1.003 - 1.030 STEFANI SUERO Comment:Testing performed by : [address] [address] pH, urine 5.5 STEFANI Comment: Interpretive Data U rine pH is affected by diet, medications, systemic acid-base disturbances, and renal tubular function. pH may affect urinary stone formation. For example, urine pH below 6.0 may help reduce the tendency for calcium phosphate stones and pH greater than 6.0 may reduce the tendency for uric acid stone formation. Source: [facility] [employer]IP[employer] Current Interpretive Data was last revised on 2017 Testing performed by: [facility], [address] [place] [address], [place]., [address] Protein, ur ql Negative Negative STEFANI Comment:Testing performed by : [address], [place]., [address] Glucose, ur ql Negative Negative STEFANI Comment:Testing performed by : [address], [place]., [address] Ketones, ur Negative Negative STEFANI Comment:Testing performed by : [address], [place]., [address] Bilirubin, ur Negative Negative STEFANI Comment:Testing performed by : [address], [place]., [address] Blood, ur 1+(A) Negative STEFANI Comment:Testing performed by : [address], [place]., [address] Urobilinogen, ur <2.0 <2.0 mg/dL STEFANI Comment:Testing performed by : [address], [place]., [address] Nitrite, ur Negative Negative STEFANI Comment:Testing performed by : [address], [place]., [address] Leukocyte esterase, ur Negative Negative STEFANI Comment:Testing performed by : [address], [place]., [address] UA reflex comment Reflex to microscopic UA will be performed. STEFANI Comment:Testing performed by : [address], [place]., [address] Urine, bladder 09/04/2024 1: 59 PM CDT 09/04/2024 3:41 PM CDT us Robert Finley MD PhD LAB MICROBIOLOGY - GE NERAL ORDERABLES Final Result Performing Organization Address [facility] de Phone Number STEFANI [address] [employer] [place] [address] * (ABNORMAL) Urinalysis, microscopic only (09/04/2024 1:59 PM CDT) Pathologist [facility] WBC, ur 0-5 0 - 5 /HPF Comment:Testing performed by : [facility], [address] [place] [address]., [address] RBC, ur 3-5(A) 0 - 2 /HPF STEFANI Comment:Testing performed by : [address] [address] Epithelial cells, squamous, ur >50(A) 0 - 5 /HPF STEFANI Comment:Testing performed by : [address] [address] Bacteria, ur Trace(A) STEFANI Comment:Testing performed by : [address] [address] Culture Reflex Comment Reflex conditions for urine culture (WBC >10) not met. STEFANI Comment:Testing performed by : [address] [address] Urine, bladder 09/04/2024 1: 59 PM CDT 09/04/2024 3:41 PM CDT us Robert Finley MD PhD LAB URINE ORDERABLES Final Result Performing Organization Address [facility] de Phone Number STEFANI [address] Department [place] [address] * eGFR (09/04/2024 12:36 PM CDT) [facility] eGFR >90 >=60 mL/min/1. 73 m2 Comment: [...] was last reviewed 2021. Testing performed by: [address] [address] Blood 09/04/2024 12:3 6 PM CDT 09/04/2024 12:37 PM CDT us Robert Finley MD PhD LAB BLOOD ORDERABLES Final Result [place] [id number] [facility] Department [place] [address] * Differential, auto (09/04/2024 12:36 PM CDT) Neutrophil abs 4.09 1.50 - 6.50 K/cumm Comment:Testing performed by : [address] [address] Imm gran abs 0.01 0.00 - 0.10 K/cumm STEFANI Comment:Testing performed by : [address] [address] Lymphocyte abs 2.08 0.80 - 3.30 K/cumm STEFANI Comment:Testing performed by : [address] [address] Monocyte abs 0.47 0.20 - 0.80 K/cumm STEFANI Comment:Testing performed by : [address] [address] Eosinophil abs 0.09 0.00 - 0.50 K/cumm STEFANI Comment:Testing performed by : [address] [place]., [address] Basophil abs 0.02 0.00 - 0.10 K/cumm STEFANI Comment:Testing performed by : [address] [address] Neutrophil pct 60.5 % [facility] Comment: Interpretive Data Percent cell count reference ranges are not reported, since discordance with absolute values may lead to misinterpretation of CBC data. Current Interpretive Data was last revised on 2017. Testing performed by: [address] [address] Imm gran pct 0.1 % [facility] Comment: Interpretive Data Percent cell count reference ranges are not reported, since discordance with absolute values may lead to misinterpretation of CBC data. Current Interpretive Data was last revised on 2017. Testing performed by: [address] [address] Lymphocyte pct 30.8 % [facility] Comment: Interpretive Data Percent cell count reference ranges are not reported, since discordance with absolute values may lead to misinterpretation of CBC data. Current Interpretive Data was last revised on 2017. Testing performed by: [address] [address] Monocyte pct 7.0 % [facility] Comment: Interpretive Data Percent cell count reference ranges are not reported, since discordance with absolute values may lead to misinterpretation of CBC data. Current Interpretive Data was last revised on 2017. Testing performed by: [address] [address] Eosinophil pct 1.3 % [facility] Comment: Interpretive Data Percent cell count reference ranges are not reported, since discordance with absolute values may lead to misinterpretation of CBC data. Current Interpretive Data was last revised on 2017. Testing performed by: [address] [address] Basophil pct 0.3 % [facility] Comment: Interpretive Data Percent cell count reference ranges are not reported, since discordance with absolute values may lead to misinterpretation of CBC data. Current Interpretive Data was last revised on 2017. Testing performed by: [address] [address] Blood 09/04/2024 12:3 6 PM CDT 09/04/2024 12:37 PM CDT us Robert Finley MD PhD LAB BLOOD ORDERABLES Final Result [facility] [address] [facility] Department [place] [address] * CBC with auto differential (09/04/2024 12:36 PM CDT) WBC 6.76 3.80 - 9.90 K/cumm Comment:Testing performed by : [address], [address] Hgb 12.3 11.9 - 15.5 g/dL STEFANI Comment:Testing performed by : [address] [address] Hct 37.3 35.6 - 45.5 % STEFANI Comment:Testing performed by : [address] [address] Plt 289 150 - 400 K/cumm STEFANI Comment:Testing performed by : [address], [address] MPV 9.1 9.1 - 12.3 fL STEFANI Comment:Testing performed by : [address] [address] RBC 4.09 3.90 - 5.20 M/cumm STEFANI Comment:Testing performed by : [address] [address] MCV 91.2 81.3 - 96.4 fL STEFANI Comment:Testing performed by : [address] [address] MCH 30.1 27.1 - 33.3 pg STEFANI SUERO Comment:Testing performed by : [address] [address] MCHC 33.0 32.3 - 35.7 g/dL STEFANI Comment:Testing performed by : [address] [address] RDW CV 14.1 11.1 - 14.9 % STEFANI SUERO Comment:Testing performed by : [address] [address] RDW SD 46.5 35.7 - 48.1 fL STEFANI SUERO Comment:Testing performed by : [address] [address] NRBC abs 0.00 0.00 - 0.01 K/cumm STEFANI Comment:Testing performed by : [address] [address] ANC Prelim 4.09 1.50 - 6.50 K/cumm STEFANI Comment: Interpretive Data The rapid ANC is a preliminary automated count and may vary from the final ANC (Neut Abs) reported in the WBC differential that follows. Current interpretive data was last revised 2024. Testing performed by: [address] [address] Blood 09/04/2024 12:3 6 PM CDT 09/04/2024 12:37 PM CDT us Robert Finley MD PhD LAB BLOOD ORDERABLES Final Result Performing Organization Address City/[facility]/ZIP Co de Phone Number [address] [employer] [place] [address] * TSH (09/04/2024 12:36 PM CDT) Thyroid Stimulating Hormone 2.42 0.30 - 4.20 mcIUnit/mL Comment:Testing performed by : [address] [address] Blood 09/04/2024 12:3 6 PM CDT 09/04/2024 1:37 PM CDT us Robert Finley MD PhD LAB BLOOD ORDERABLES Final Result Performing Organization Address City/[facility]/ZIP Co de Phone Number [address] [employer] [place] [address] * Comprehensive metabolic panel (09/04/2024 12:36 PM CDT) Sodium 140 135 - 145 mmol/L Comment:Testing performed by : [address] [address] Potassium, pl 4.1 3.3 - 4.9 mmol/L STEFANI Comment:Testing performed by : [address] [address] Chloride 104 97 - 110 mmol/L STEFANI Comment:Testing performed by : [address], [place]., [address] CO2 26 22 - 32 mmol/L [facility] Comment:Testing performed by : [address] [address] Anion gap 10 2 - 15 mmol/L [facility] Comment:Testing performed by : [address] [address] BUN 19 6 - 25 mg/dL [facility] Comment:Testing performed by : [address] [address] Creatinine 0.60 0.60 - 1.10 mg/dL [facility] Comment:Testing performed by : [address] [address] Glucose 141 70 - 199 mg/dL [facility] Comment: Interpretive Data Fasting glucose >/= 126 [...] was last revised 2022. Testing performed by: [address] [address] Calcium 9.7 8.5 - 10.3 mg/dL STEFANI Comment:Testing performed by : [address] [address] Bilirubin, total 0.2 0.1 - 1.2 mg/dL STEFANI SUERO Comment:Testing performed by : [address] [address] Protein, pl 7.0 6.5 - 8.5 g/dL STEFANI Comment:Testing performed by : [address] [address] Albumin 4.3 3.5 - 5.0 g/dL STEFANI Comment:Testing performed by : [address] [address] Alk phos 94 40 - 130 Units/L STEFANI Comment:Testing performed by : [address] [address] ALT 15 7 - 45 Units/L STEFANI Comment:Testing performed by : [address] [address] AST 18 10 - 45 Units/L STEFANI Comment:Testing performed by : [address] [address] Blood 09/04/2024 12:3 6 PM CDT 09/04/2024 12:37 PM CDT us Robert Finley MD PhD LAB BLOOD ORDERABLES Final Result Performing Organization Address City/State/[facility] Co de Phone Number STEFANI [address] [facility] Department [place] [address] * CT Chest Abdomen Pelvis W Contrast [...] Arian Stewart M.D. NS: NS Report ID: [id number] Reading Location: [id number] Procedure Note Arian Stewart MD - 09/04/2024 [...] Arian Stewart M.D. NS: NS Report ID: [id number] Reading Location: [id number] us Robert Finley MD PhD IMG CT PROCEDURES Fin al Result * eGFR (08/14/2024 7:36 AM CDT) Pathologist [facility] eGFR >90 >=60 mL/min/1. 73 m2 Comment: [...] was last reviewed 2021. Testing performed by: [address] [address] Blood 08/14/2024 7:36 AM CDT 08/14/2024 7:46 AM CDT us Robert Finley MD PhD LAB BLOOD ORDERABLES Final Result [facility] [address] [facility] Department [place] [address] * Differential, auto (08/14/2024 7:36 AM CDT) Pathologist [facility] Neutrophil abs 2.7 1.5 - 6.5 K/cumm Comment:Testing performed by : [address] [address] Imm gran abs 0.0 0.0 - 0.1 K/cumm STEFANI SUERO Comment:Testing performed by : [address] [address] Lymphocyte abs 1.6 0.8 - 3.3 K/cumm [facility] Comment:Testing performed by : [address] [address] Monocyte abs 0.4 0.2 - 0.8 K/cumm [facility] Comment:Testing performed by : [address] [address] Eosinophil abs 0.1 0.0 - 0.5 K/cumm [facility] Comment:Testing performed by : [address], [place]., [address] Basophil abs 0.0 0.0 - 0.1 K/cumm [facility] Comment:Testing performed by : [address] [address] Neutrophil pct 55.9 % [facility] Comment: Interpretive Data Percent cell count reference ranges are not reported, since discordance with absolute values may lead to misinterpretation of CBC data. Current Interpretive Data was last revised on 2017. Testing performed by: [address] [address] Imm gran pct 0.2 % [facility] Comment: Interpretive Data Percent cell count reference ranges are not reported, since discordance with absolute values may lead to misinterpretation of CBC data. Current Interpretive Data was last revised on 2017. Testing performed by: [address] [address] Lymphocyte pct 33.3 % [facility] Comment: Interpretive Data Percent cell count reference ranges are not reported, since discordance with absolute values may lead to misinterpretation of CBC data. Current Interpretive Data was last revised on 2017. Testing performed by: [address] [address] Monocyte pct 8.3 % [facility] Comment: Interpretive Data Percent cell count reference ranges are not reported, since discordance with absolute values may lead to misinterpretation of CBC data. Current Interpretive Data was last revised on 2017. Testing performed by: [address] [address] Eosinophil pct 2.1 % [facility] Comment: Interpretive Data Percent cell count reference ranges are not reported, since discordance with absolute values may lead to misinterpretation of CBC data. Current Interpretive Data was last revised on 2017. Testing performed by: [address] [address] Basophil pct 0.2 % STEFANI SUERO Comment: Interpretive Data Percent cell count reference ranges are not reported, since discordance with absolute values may lead to misinterpretation of CBC data. Current Interpretive Data was last revised on 2017. Testing performed by: [address] [address] Blood 08/14/2024 7:36 AM CDT 08/14/2024 7:46 AM CDT us Robert Finley MD PhD LAB BLOOD ORDERABLES Final Result STEFANI [address] [facility] Department [place] [address] * (ABNORMAL) CBC with auto differential (08/14/2024 7:36 AM CDT) WBC 4.8 3.8 - 9.9 K/cumm Comment:Testing performed by : [address] [address] Hgb 11.9 11.9 - 15.5 g/dL STEFANI SUERO Comment:Testing performed by : [address] [address] Hct 36.2 35.6 - 45.5 % STEFANI SUERO Comment:Testing performed by : [address] [address] Plt 333 150 - 400 K/cumm STEFANI SUERO Comment:Testing performed by : [address] [address] MPV 8.8(L) 9.1 - 12.3 fL STEFANI SUERO Comment:Testing performed by : [address] [address] RBC 3.93 3.90 - 5.20 M/cumm STEFANI SUERO Comment:Testing performed by : [address] [address] MCV 92.1 81.3 - 96.4 fL STEFANI SUERO Comment:Testing performed by : [address], [address] MCH 30.3 27.1 - 33.3 pg STEFANI SUERO Comment:Testing performed by : [address] [address] MCHC 32.9 32.3 - 35.7 g/dL STEFANI SUERO Comment:Testing performed by : [address], [address] RDW CV 14.0 11.1 - 14.9 % STEFANI SUERO Comment:Testing performed by : [address], [address] RDW SD 47.5 35.7 - 48.1 fL STEFANI SUERO Comment:Testing performed by : [address], [address] NRBC abs 0.00 0.00 - 0.01 K/cumm STEFANI SUERO Comment:Testing performed by : [address], [address] Blood 08/14/2024 7:36 AM CDT 08/14/2024 7:46 AM CDT us Robert Finley MD PhD LAB BLOOD ORDERABLES Final Result Performing Organization Address [facility] Co de Phone Number [facility] [address] [facility] Department of Laboratories [place], [place] [id number] * TSH (08/14/2024 7:36 AM CDT) Thyroid Stimulating Hormone 2.32 0.30 - 4.20 mcIUnit/mL Comment:Testing performed by : [address], [address] Blood 08/14/2024 7:36 AM CDT 08/14/2024 9:56 AM CDT us Robert Finley MD PhD LAB BLOOD ORDERABLES Final Result [facility] [address] [facility] Department [place] [address] * Comprehensive metabolic panel (08/14/2024 7:36 AM CDT) Sodium 142 135 - 145 mmol/L Comment:Testing performed by : [address] [address] Potassium, pl 4.0 3.3 - 4.9 mmol/L [facility] Comment:Testing performed by : [address], [place]., [address] Chloride 106 97 - 110 mmol/L [facility] Comment:Testing performed by : [address] [address] CO2 26 22 - 32 mmol/L [facility] Comment:Testing performed by : [address], [place]., [address] Anion gap 10 2 - 15 mmol/L [facility] Comment:Testing performed by : [address] [address] BUN 20 6 - 25 mg/dL [facility] Comment:Testing performed by : [address] [address] Creatinine 0.60 0.60 - 1.10 mg/dL [facility] Comment:Testing performed by : [address] [address] Glucose 120 70 - 199 mg/dL [facility] Comment: Interpretive Data Fasting glucose >/= 126 [...] was last revised 2022. Testing performed by: [address] [address] Calcium 9.5 8.5 - 10.3 mg/dL [facility] SUERO Comment:Testing performed by : [facility], [address] [place] [address]., [address] Bilirubin, total 0.2 0.1 - 1.2 mg/dL [facility] Comment:Testing performed by : [address] [address] Protein, pl 6.8 6.5 - 8.5 g/dL [facility] Comment:Testing performed by : [address] [address] Albumin 4.1 3.5 - 5.0 g/dL [facility] Comment:Testing performed by : [address] [address] Alk phos 92 40 - 130 Units/L [facility] Comment:Testing performed by : [address] [address] ALT 19 7 - 45 Units/L [facility] Comment:Testing performed by : [address] [address] AST 19 10 - 45 Units/L [facility] Comment:Testing performed by : [address] [address] Blood 08/14/2024 7:36 AM CDT 08/14/2024 7:46 AM CDT us Robert Finley MD PhD LAB BLOOD ORDERABLES Final Result Performing Organization Address City/State/[facility] Co de Phone Number [facility] [address] [facility] Department [place] [address] * eGFR (07/24/2024 12:47 PM SLATE ROOFER) eGFR >90 >=60 mL/min/1. 73 m2 Comment: [...] was last reviewed 2021. Testing performed by: [address] [address] Blood 07/24/2024 12:4 7 PM SLATE ROOFER 07/24/2024 12:48 PM SLATE ROOFER us Robert Finley MD PhD LAB BLOOD ORDERABLES Final Result [facility] [address] [facility] Department [place] [address] * Differential, auto (07/24/2024 12:47 PM SLATE ROOFER) Neutrophil abs 5.4 1.5 - 6.5 K/cumm Comment:Testing performed by : [address] [address] Imm gran abs 0.0 0.0 - 0.1 K/cumm [facility] Comment:Testing performed by : [address] [address] Lymphocyte abs 2.1 0.8 - 3.3 K/cumm [facility] Comment:Testing performed by : [address] [address] Monocyte abs 0.5 0.2 - 0.8 K/cumm [facility] Comment:Testing performed by : [address] [address] Eosinophil abs 0.1 0.0 - 0.5 K/cumm [facility] Comment:Testing performed by : [address] [address] Basophil abs 0.0 0.0 - 0.1 K/cumm [facility] Comment:Testing performed by : [address] [address] Neutrophil pct 65.8 % [facility] Comment: Interpretive Data Percent cell count reference ranges are not reported, since discordance with absolute values may lead to misinterpretation of CBC data. Current Interpretive Data was last revised on 2017. Testing performed by: [address] [address] Imm gran pct 0.2 % [facility] Comment: Interpretive Data Percent cell count reference ranges are not reported, since discordance with absolute values may lead to misinterpretation of CBC data. Current Interpretive Data was last revised on 2017. Testing performed by: [address] [address] Lymphocyte pct 25.7 % [facility] Comment: Interpretive Data Percent cell count reference ranges are not reported, since discordance with absolute values may lead to misinterpretation of CBC data. Current Interpretive Data was last revised on 2017. Testing performed by: [address] [address] Monocyte pct 6.4 % [facility] Comment: Interpretive Data Percent cell count reference ranges are not reported, since discordance with absolute values may lead to misinterpretation of CBC data. Current Interpretive Data was last revised on 2017. Testing performed by: [address] [address] Eosinophil pct 1.7 % [facility] Comment: Interpretive Data Percent cell count reference ranges are not reported, since discordance with absolute values may lead to misinterpretation of CBC data. Current Interpretive Data was last revised on 2017. Testing performed by: [address] [address] Basophil pct 0.2 % [facility] Comment: Interpretive Data Percent cell count reference ranges are not reported, since discordance with absolute values may lead to misinterpretation of CBC data. Current Interpretive Data was last revised on 2017. Testing performed by: [address] [address] Blood 07/24/2024 12:4 7 PM SLATE ROOFER 07/24/2024 12:49 PM SLATE ROOFER us Robert Finley MD PhD LAB BLOOD ORDERABLES Final Result [facility] [address] [facility] Department [place] [address] * (ABNORMAL) CBC with auto differential (07/24/2024 12:47 PM SLATE ROOFER) WBC 8.2 3.8 - 9.9 K/cumm Comment:Testing performed by : [address] [address] Hgb 11.9 11.9 - 15.5 g/dL [facility] Comment:Testing performed by : [address] [address] Hct 36.4 35.6 - 45.5 % [facility] Comment:Testing performed by : [address] [address] Plt 295 150 - 400 K/cumm [facility] Comment:Testing performed by : [address] [address] MPV 9.0(L) 9.1 - 12.3 fL [facility] Comment:Testing performed by : [address] [address] RBC 3.97 3.90 - 5.20 M/cumm [facility] Comment:Testing performed by : [address] [address] MCV 91.7 81.3 - 96.4 fL [facility] Comment:Testing performed by : [address] [address] MCH 30.0 27.1 - 33.3 pg [facility] Comment:Testing performed by : [address] [address] MCHC 32.7 32.3 - 35.7 g/dL [facility] Comment:Testing performed by : [address] [address] RDW CV 14.4 11.1 - 14.9 % [facility] Comment:Testing performed by : [address] [address] RDW SD 48.4(H) 35.7 - 48.1 fL [facility] SUERO Comment:Testing performed by : [address] [address] NRBC abs 0.00 0.00 - 0.01 K/cumm [facility] SUERO Comment:Testing performed by : [address] [address] Blood 07/24/2024 12:4 7 PM SLATE ROOFER 07/24/2024 12:49 PM SLATE ROOFER us Robert Finley MD PhD LAB BLOOD ORDERABLES Final Result Performing Organization Address City/[facility] Co de Phone Number [address] [place] [address] * TSH (07/24/2024 12:47 PM SLATE ROOFER) Pathologist [facility] Thyroid Stimulating Hormone 2.03 0.30 - 4.20 mcIUnit/mL Comment:Testing performed by : [address], [address] Blood 07/24/2024 12:4 7 PM SLATE ROOFER 07/24/2024 1:51 PM SLATE ROOFER us Robert Filney MD PhD LAB BLOOD ORDERABLES Final Result Performing Organization Address City/[facility] Co de Phone Number [address] [address] * Comprehensive metabolic panel (07/24/2024 12:47 PM SLATE ROOFER) Sodium 141 135 - 145 mmol/L Comment:Testing performed by : [address] [address] Potassium, pl 3.8 3.3 - 4.9 mmol/L [facility] SUERO Comment:Testing performed by : [address], [address] Chloride 104 97 - 110 mmol/L [facility] SUERO Comment:Testing performed by : [address] [address] CO2 27 22 - 32 mmol/L [facility] Comment:Testing performed by : [address] [address] Anion gap 10 2 - 15 mmol/L [facility] Comment:Testing performed by : [address], [place]., [address] BUN 18 6 - 25 mg/dL [facility] Comment:Testing performed by : [address], [place]., [address] Creatinine 0.60 0.60 - 1.10 mg/dL [facility] Comment:Testing performed by : [address] [address] Glucose 137 70 - 199 mg/dL [facility] Comment: Interpretive Data Fasting glucose >/= 126 [...] was last revised 2022. Testing performed by: [address] [address] Calcium 9.4 8.5 - 10.3 mg/dL [facility] Comment:Testing performed by : [address] [address] Bilirubin, total 0.2 0.1 - 1.2 mg/dL [facility] Comment:Testing performed by : [address] [address] Protein, pl 6.9 6.5 - 8.5 g/dL [facility] Comment:Testing performed by : [address] [address] Albumin 4.1 3.5 - 5.0 g/dL [facility] Comment:Testing performed by : [address] [address] Alk phos 98 40 - 130 Units/L [facility] Comment:Testing performed by : [address] [address] ALT 26 7 - 45 Units/L [facility] Comment:Testing performed by : [facility], [address] [place] [address]., [address] AST 19 10 - 45 Units/L [facility] Comment:Testing performed by : [address] [address] Blood 07/24/2024 12:4 7 PM SLATE ROOFER 07/24/2024 12:48 PM SLATE ROOFER us Robert Finley MD PhD LAB BLOOD ORDERABLES Final Result Performing Organization Address City/[facility]/ZIP Co de Phone Number [facility] [address] [facility] Department [place] [address] * RAD ONC ARIA COURSE SUMMARY (07/12/2024 10:11 AM SLATE ROOFER) Course Name [facility] 5 ARIA Course Plan Date 07/12/2024 8:25 AM ARIA Elapsed Days 0 ARIA Course Intent Unknown ARIA Treatment Start Date 07/12/2024 ARIA Treatment Site [id number] ariet ARIA Dose Given To Date (cGy) 2,000 ARIA Session Dosage Given (cGy) 0 ARIA Plan ID GTV 10-11 ARIA Fractions Treated 1 ARIA Prescribed Dose Per Fraction (cGy) 2,000 ARIA Prescribed Total Dose (cGy) 2,000 ARIA 07/12/2024 10:1 1 AM SLATE ROOFER us Not In File Miscellaneous RADIATION ONCOLOGY ORD ERABLES Final Result ARIA * RAD ONC ARIA SESSION SUMMARY (07/12/2024 9:39 AM SLATE ROOFER) Course Name [facility] 5 ARIA Course Plan Date 07/12/2024 8:25 AM ARIA Elapsed Days 0 ARIA Course Intent Unknown ARIA Treatment Start Date 07/12/2024 ARIA Treatment Site [id number] ariet ARIA Dose Given To Date (cGy) 2,000 ARIA Session Dosage Given (cGy) 2,000 ARIA Plan ID GTV 10-11 ARIA Fractions Treated 1 ARIA Prescribed Dose Per Fraction (cGy) 2,000 ARIA Prescribed Total Dose (cGy) 2,000 ARIA 07/12/2024 9:39 AM SLATE ROOFER us Not In File Miscellaneous RADIATION ONCOLOGY ORD ERABLES Final Result ARIA * MRI Brain Gamma Knife W WO Contrast (07/09/2024 11:35 AM SLATE ROOFER) Anatomical Region Laterality Modality Head and Neck N/A Magnetic Resonan ce 07/09/2024 12:2 3 PM SLATE ROOFER Impressions 07/09/2024 12:23 PM SLATE ROOFER 2 contrast-enhancing lesions for radiation therapy planning, as detailed above. Findings discussed with Marcelino Hendrix at 1223 hours 07/09/2024. Electronically signed by: Darby Maldonado M.D. Narrative 07/09/2024 12:23 PM SLATE ROOFER EXAMINATION: Magnetic resonance imaging (MRI) of the [...] thickening and right mastoid effusion. Procedure Note Rohith Maldonado, Darby Mcpherson MD - 07/09/2024 EXAMINATION: Magnetic resonance imaging [...] by: Darby Maldonado M.D. Veronica Sullivan MD IMG MRI PROCEDURES Fi nal Result * eGFR (06/26/2024 1:02 PM SLATE ROOFER) eGFR >90 >=60 mL/min/1. 73 m2 Comment: [...] was last reviewed 2021. Testing performed by: [address] [address] Blood 06/26/2024 1:02 PM SLATE ROOFER 06/26/2024 1:03 PM SLATE ROOFER us Robert Finley MD PhD LAB BLOOD ORDERABLES Final Result [facility] [address] [facility] Department [place] [address] * Differential, auto (06/26/2024 1:02 PM SLATE ROOFER) Pathologist [facility] Neutrophil abs 3.2 1.5 - 6.5 K/cumm Comment:Testing performed by : [address] [address] Imm gran abs 0.0 0.0 - 0.1 K/cumm [facility] Comment:Testing performed by : [address] [address] Lymphocyte abs 2.0 0.8 - 3.3 K/cumm [facility] Comment:Testing performed by : [address] [address] Monocyte abs 0.5 0.2 - 0.8 K/cumm [facility] Comment:Testing performed by : [address] [address] Eosinophil abs 0.1 0.0 - 0.5 K/cumm [facility] Comment:Testing performed by : [address] [address] Basophil abs 0.0 0.0 - 0.1 K/cumm [facility] Comment:Testing performed by : [address] [address] Neutrophil pct 55.0 % [facility] Comment: Interpretive Data Percent cell count reference ranges are not reported, since discordance with absolute values may lead to misinterpretation of CBC data. Current Interpretive Data was last revised on 2017. Testing performed by: [address] [address] Imm gran pct 0.3 % [facility] Comment: Interpretive Data Percent cell count reference ranges are not reported, since discordance with absolute values may lead to misinterpretation of CBC data. Current Interpretive Data was last revised on 2017. Testing performed by: [address] [address] Lymphocyte pct 34.3 % [facility] Comment: Interpretive Data Percent cell count reference ranges are not reported, since discordance with absolute values may lead to misinterpretation of CBC data. Current Interpretive Data was last revised on 2017. Testing performed by: [address] [address] Monocyte pct 8.5 % [facility] Comment: Interpretive Data Percent cell count reference ranges are not reported, since discordance with absolute values may lead to misinterpretation of CBC data. Current Interpretive Data was last revised on 2017. Testing performed by: [address] [address] Eosinophil pct 1.6 % [facility] Comment: Interpretive Data Percent cell count reference ranges are not reported, since discordance with absolute values may lead to misinterpretation of CBC data. Current Interpretive Data was last revised on 2017. Testing performed by: [address] [address] Basophil pct 0.3 % [facility] Comment: Interpretive Data Percent cell count reference ranges are not reported, since discordance with absolute values may lead to misinterpretation of CBC data. Current Interpretive Data was last revised on 2017. Testing performed by: [address] [address] Blood 06/26/2024 1:02 PM SLATE ROOFER 06/26/2024 1:03 PM SLATE ROOFER us Robert Finley MD PhD LAB BLOOD ORDERABLES Final Result [facility] [address] [facility] Department [place] [address] * (ABNORMAL) CBC with auto differential (06/26/2024 1:02 PM SLATE ROOFER) [facility] WBC 5.7 3.8 - 9.9 K/cumm Comment:Testing performed by : [address] [address] Hgb 12.8 11.9 - 15.5 g/dL [facility] Comment:Testing performed by : [address] [address] Hct 38.8 35.6 - 45.5 % [facility] Comment:Testing performed by : [address] [address] Plt 350 150 - 400 K/cumm [facility] Comment:Testing performed by : [address] [address] MPV 8.7(L) 9.1 - 12.3 fL [facility] Comment:Testing performed by : [address] [address] RBC 4.22 3.90 - 5.20 M/cumm [facility] Comment:Testing performed by : [address] [address] MCV 91.9 81.3 - 96.4 fL [facility] Comment:Testing performed by : [address] [address] MCH 30.3 27.1 - 33.3 pg [facility] Comment:Testing performed by : [address] [address] MCHC 33.0 32.3 - 35.7 g/dL [facility] Comment:Testing performed by : [address] [address] RDW CV 14.3 11.1 - 14.9 % [facility] Comment:Testing performed by : [address] [address] RDW SD 47.9 35.7 - 48.1 fL [facility] Comment:Testing performed by : [address], [address] NRBC abs 0.00 0.00 - 0.01 K/cumm [facility] Comment:Testing performed by : [address] [address] Blood 06/26/2024 1:02 PM SLATE ROOFER 06/26/2024 1:03 PM SLATE ROOFER Robert Finley MD PhD LAB BLOOD ORDERABLES Final Result Performing Organization Address City/[facility] Co de Phone Number [address] [employer] [place] [address] * TSH (06/26/2024 1:02 PM SLATE ROOFER) Pathologist [facility] Thyroid Stimulating Hormone 1.09 0.30 - 4.20 mcIUnit/mL Comment:Testing performed by : [address] [address] Blood 06/26/2024 1:02 PM SLATE ROOFER 06/26/2024 1:42 PM SLATE ROOFER Robert Finley MD PhD LAB BLOOD ORDERABLES Final Result Performing Organization Address [facility] de Phone Number [address] [place] [address] * Comprehensive metabolic panel (06/26/2024 1:02 PM SLATE ROOFER) Pathologist [facility] Sodium 142 135 - 145 mmol/L Comment:Testing performed by : [address] [address] Potassium, pl 4.0 3.3 - 4.9 mmol/L [facility] Comment:Testing performed by : [address] [address] Chloride 106 97 - 110 mmol/L [facility] Comment:Testing performed by : [address] [address] CO2 26 22 - 32 mmol/L [facility]ERO Comment:Testing performed by : [address] [address] Anion gap 10 2 - 15 mmol/L [facility] SUERO Comment:Testing performed by : [address] [address] BUN 16 6 - 25 mg/dL [facility] Comment:Testing performed by : [address] [address] Creatinine 0.60 0.60 - 1.10 mg/dL [facility] Comment:Testing performed by : [address] [address] Glucose 110 70 - 199 mg/dL [facility] [...] was last revised 2022. Testing performed by: [address] [address] Calcium 9.5 8.5 - 10.3 mg/dL [facility] Comment:Testing performed by : [address] [address] Bilirubin, total 0.3 0.1 - 1.2 mg/dL [facility] Comment:Testing performed by : [address] [address] Protein, pl 7.2 6.5 - 8.5 g/dL [facility] Comment:Testing performed by : [address] [address] Albumin 4.2 3.5 - 5.0 g/dL [facility] Comment:Testing performed by : [address] [address] Alk phos 98 40 - 130 Units/L [facility] Comment:Testing performed by : [address] [address] ALT 22 7 - 45 Units/L [facility] Comment:Testing performed by : [address] [place] [address] AST 19 10 - 45 Units/L [facility] SUERO Comment:Testing performed by : [facility], [address] [place] [address]., [address] Blood 06/26/2024 1:02 PM SLATE ROOFER 06/26/2024 1:03 PM SLATE ROOFER us Robert Finley MD PhD LAB BLOOD ORDERABLES Final Result [facility] [address] [facility] Department [place] [address] from Last [address] [place] [address] [place] [address] [place] [address] [place] [address] Advance Directives For more information, please contact: [phone] * Full Code (Latest Code Status on File) Date Activated Date Inactivated Comments 11/19/2022 7:26 AM 11/20/2022 4:54 AM Care Teams Community Organization Director Relationship Specialty Start Date End Date Jarocho Ruggiero MD PCP - General Internal Medicine 08/20/22 Robert Finley MD PhD [address] [place] [address] MEDICAL ONCOLOGY, [address] [address] Consulting Physician Medical Oncology 10/05/22 Jarrett Lofton MD [address] [place] [address] MEDICAL ONCOLOGY, [address] [address] Consulting Physician Neurosurgery 11/18/22
--- OUTSIDE RECORDS SUMMARY | 2024-09-20 09:24 | XMS_ITS | Referral Summary ---
Author Organization [facility] Address [address] [place] [address] Care Team Providers Care Civil Design Specialist Name Role Phone Jarocho Ruggiero MD Primary Care Provider [phone] Robert Finley MD PhD Unavailable Jarrett Lofton MD Unavailable Encounters Date Type Department Care Team Description 09/04/2024 Orders Only [facility] [address] [place] [address] [address] [place] [address] Robert Finley MD PhD 09/04/2024 12:45 PM CDT Clinical Support [facility] at [address] [address] Malignant neoplasm of upper lobe of right lung (HCC) 09/04/2024 1:45 PM CDT Infusion [facility] at [address] [phone] Malignant neoplasm of upper lobe of right lung (HCC) (Primary Dx) 09/04/2024 1:15 PM CDT Office Visit [facility] [address] [place] [address] [address] [place] [address] Robert Finley MD PhD Malignant neoplasm of upper lobe of right lung (HCC) (Primary Dx) 08/30/2024 8:08 AM CDT - 08/30/2024 11:59 PM CDT Hospital Encounter [facility] [address] [place] [address] Malignant neoplasm of upper lobe of right lung (HCC) Discharge Disposition: Discharge to home or self care 08/14/2024 Orders Only [facility] [address] [place] [phone] Loretta Mckeon RN 08/14/2024 8:00 AM CDT Infusion [address] [address] Malignant neoplasm of upper lobe of right lung (HCC) (Primary Dx) 08/14/2024 7:30 AM CDT Clinical Support [address] [address] Malignant neoplasm of upper lobe of right lung (HCC) 08/09/2024 Orders Only [facility] [address] [place] [address] [address] [place] [address] Lisa Vides, CLIVE 08/09/2024 Orders Only [facility] [address] [place] [phone] Robert Finley MD PhD 07/26/2024 Orders Only [facility] - Infusion [address] [facility] Floor [address] [place] [address] Danika Landry [facility] 07/24/2024 Orders Only [facility] [address] [place] [phone] Robert Finley MD PhD 07/24/2024 12:45 PM CUSTOMER SERVICE AND SALES CONSULTANT Clinical Support [address] [address] Malignant neoplasm of upper lobe of right lung (HCC) 07/24/2024 1:45 PM CUSTOMER SERVICE AND SALES CONSULTANT Infusion [address] [address] Malignant neoplasm of upper lobe of right lung (HCC) (Primary Dx) 07/24/2024 1:15 PM CUSTOMER SERVICE AND SALES CONSULTANT Office Visit [facility] [address] [place] [address] [place] [phone] Robert Finley MD PhD Malignant neoplasm of upper lobe of right lung (HCC) (Primary Dx) 07/13/2024 Telephone [facility] Oncology [address] [place] [address] Brad Carter RN Follow-up 07/12/2024 6:35 AM CUSTOMER SERVICE AND SALES CONSULTANT - 07/12/2024 11:59 PM CUSTOMER SERVICE AND SALES CONSULTANT Hospital Encounter [facility] On[facility] [address] [place] [phone] Veronica Sullivan MD Discharge Disposition: Discharge to home or self care 07/12/2024 Orders Only RAD ONC TREATMENTS Miscellaneous, Not In File 07/12/2024 Orders Only RAD ONC TREATMENTS Miscellaneous, Not In File 07/12/2024 9:00 AM CUSTOMER SERVICE AND SALES CONSULTANT - 07/12/2024 11:59 PM CUSTOMER SERVICE AND SALES CONSULTANT Hospital Encounter [facility] Oncology [address] [place] [phone] Veronica Sullivan MD Discharge Disposition: Discharge to home or self care 07/12/2024 6:30 AM CUSTOMER SERVICE AND SALES CONSULTANT Procedure visit [facility] On[facility] [address] [place] [phone] Jarrett Lofton MD Perkins, Stephanie Mabry, MD Metastasis to brain (HCC) (Primary Dx) 07/10/2024 Documentation [facility] On[facility] [address] [place] [address] Vianca Alonzo, CLIVE Gamma Knife/Radiosurgery (Insurance Pre-Authorization) 07/09/2024 Documentation [facility] Rad[facility] On[facility] [address] [facility] [place] [address] Vianca Alonzo, CLIVE Gamma Knife/Radiosurgery (GK MRI) 07/09/2024 10:00 AM CUSTOMER SERVICE AND SALES CONSULTANT Office Visit [facility] Oncology [address] [place] [address] Veronica Sullivan MD Malignant neoplasm metastatic to brain (HCC) [C79.31] (Primary Dx) 07/09/2024 9:52 AM CUSTOMER SERVICE AND SALES CONSULTANT - 07/09/2024 11:59 PM CUSTOMER SERVICE AND SALES CONSULTANT Hospital Encounter [facility] [place] [facility] [address] [place] [address] Metastasis to brain (HCC) Discharge Disposition: Discharge to home or self care 07/09/2024 9:52 AM CUSTOMER SERVICE AND SALES CONSULTANT - 07/09/2024 11:59 PM CUSTOMER SERVICE AND SALES CONSULTANT Hospital Encounter [facility] Radiation Oncology [address] [place] [address] Veronica Sullivan MD Discharge Disposition: Discharge to home or self care 07/06/2024 Telephone [facility] Radiation Oncology [address] [place] [phone] Brad Carter RN 06/26/2024 Orders Only [facility] [address] [place] [phone] Robert Finley MD PhD 06/26/2024 1:45 PM CUSTOMER SERVICE AND SALES CONSULTANT Infusion [address] [place] [address] Malignant neoplasm of upper lobe of right lung (HCC) (Primary Dx) 06/26/2024 12:45 PM CUSTOMER SERVICE AND SALES CONSULTANT Clinical Support [address] [address] Malignant neoplasm of upper lobe of right lung (HCC) 06/26/2024 1:15 PM CUSTOMER SERVICE AND SALES CONSULTANT Office Visit [facility] [address] [facility] [address] [place] [address] Robert Finley MD PhD Malignant neoplasm of upper lobe of right lung (HCC) (Primary Dx); Malignant neoplasm metastatic to brain (HCC) from Last 3 Months Allergies No known [...] on file Legal Sex Female 5:44 PM CUSTOMER SERVICE AND SALES CONSULTANT Gender Identity Female 08/27/2022 2:35 PM CDT [...] on file Medical Devices Implanted Type Area [employer] Director Device Identifier Shelf Expiration Date Model / Serial / Lot [employer] Xcela Power Port 8fr [id number] - [id number] Implanted:Qty: 1 on 11/19/2022 at [facility] [employer] 04/25/2027 [id number] / / [id number] Procedures Procedure Name Priority Date/Time Associated Diagnosis [...] lung (HCC) EGFR STAT 07/24/2024 12:47 PM CUSTOMER SERVICE AND SALES CONSULTANT Malignant neoplasm of upper lobe of right lung (HCC) DIFFERENTIAL AUTO Routine 07/24/2024 12: 47 PM CUSTOMER SERVICE AND SALES CONSULTANT Malignant neoplasm of upper lobe of right lung (HCC) CBC WITH AUTO DIFFERENTIAL Routine 07/24/2024 12:47 PM CUSTOMER SERVICE AND SALES CONSULTANT Malignant neoplasm of upper lobe of right lung (HCC) COMPREHENSIVE METABOLIC PANEL STAT 07/24/2024 12:47 PM CUSTOMER SERVICE AND SALES CONSULTANT Malignant neoplasm of upper lobe of right lung (HCC) TSH Routine 07/24/2024 12:47 PM CUSTOMER SERVICE AND SALES CONSULTANT Malignant neoplasm of upper lobe of right lung (HCC) RAD ONC ARIA COURSE SUMMARY 07/12/2024 10:11 AM CUSTOMER SERVICE AND SALES CONSULTANT RAD ONC ARIA SESSION SUMMARY 07/12/2024 9:39 AM CUSTOMER SERVICE AND SALES CONSULTANT MRI BRAIN GAMMA KNIFE W WO CONTRAST Schedule Routine, Read Routine (OP Routine) 07/09/2024 11:35 AM CUSTOMER SERVICE AND SALES CONSULTANT Metastasis to brain (HCC) EGFR STAT 06/26/2024 1:02 PM CUSTOMER SERVICE AND SALES CONSULTANT Malignant neoplasm of upper lobe of right lung (HCC) DIFFERENTIAL AUTO Routine 06/26/2024 1:0 2 PM CUSTOMER SERVICE AND SALES CONSULTANT Malignant neoplasm of upper lobe of right lung (HCC) CBC WITH AUTO DIFFERENTIAL Routine 06/26/2024 1:02 PM CUSTOMER SERVICE AND SALES CONSULTANT Malignant neoplasm of upper lobe of right lung (HCC) COMPREHENSIVE METABOLIC PANEL STAT 06/26/2024 1:02 PM CUSTOMER SERVICE AND SALES CONSULTANT Malignant neoplasm of upper lobe of right lung (HCC) TSH Routine 06/26/2024 1:02 PM CUSTOMER SERVICE AND SALES CONSULTANT Malignant neoplasm of upper lobe of right lung (HCC) from Last 3 Months Results * (ABNORMAL) Urinalysis reflex to microscopic and culture Urine, bladder (09/04/2024 1:59 PM CDT) Color, ur Yellow Yellow Comment:Testing performed by : [address] [address] Clarity, ur Clear Clear STEFANI Comment:Testing performed by : [address] [address] Specific gravity, ur 1.013 1.003 - 1.030 ST[facility]ANI Comment:Testing performed by : [address] [address] pH, urine 5.5 STEFANI Comment: Interpretive Data U rine pH is affected by diet, medications, systemic acid-base disturbances, and renal tubular function. pH may affect urinary stone formation. For example, urine pH below 6.0 may help reduce the tendency for calcium phosphate stones and pH greater than 6.0 may reduce the tendency for uric acid stone formation. Source: [facility] Preo Current Interpretive Data was last revised on 2017 Testing performed by: [address] [address] Protein, ur ql Negative Negative STEFANI Comment:Testing performed by : [address] [address] Glucose, ur ql Negative Negative STEFANI Comment:Testing performed by : [address] [address] Ketones, ur Negative Negative STEFANI Comment:Testing performed by : [address] [address] Bilirubin, ur Negative Negative STEFANI Comment:Testing performed by : [address] [place] [address] Blood, ur 1+(A) Negative STEFANI SUERO Comment:Testing performed by : [facility] [address] [place] [address], [place]., [address] Urobilinogen, ur <2.0 <2.0 mg/dL ST[facility]ANI SUERO Comment:Testing performed by : [facility] [address] [place] [address], [place]., [address] Nitrite, ur Negative Negative STEFANI Comment:Testing performed by : [facility] [address] [place] [address], [place]., [address] Leukocyte esterase, ur Negative Negative STEFANI Comment:Testing performed by : [address], [place]., [address] UA reflex comment Reflex to microscopic UA will be performed. STEFANI Comment:Testing performed by : [facility] [address] [place] [address], [place]., [address] Urine, bladder 09/04/2024 1: 59 PM CDT 09/04/2024 3:41 PM CDT us Robert Finley MD PhD LAB MICROBIOLOGY - NERAL ORDERABLES Final Result [facility] [address] [facility] Department [place] [address] * (ABNORMAL) Urinalysis, microscopic only (09/04/2024 1:59 PM CDT) WBC, ur 0-5 0 - 5 /HPF Comment:Testing performed by : [facility] [address] [place] [address], [place]., [address] RBC, ur 3-5(A) 0 - 2 /HPF STEFANI Comment:Testing performed by : [address], [place]., [address] Epithelial cells, squamous, ur >50(A) 0 - 5 /HPF STEFANI Comment:Testing performed by : [facility] [address] [place] [address], [place]., [address] Bacteria, ur Trace(A) STEFANI Comment:Testing performed by : [facility] [address] [place] [address], [place]., [address] Culture Reflex Comment Reflex conditions for urine culture (WBC >10) not met. [facility] Comment:Testing performed by : [address] [address] Urine, bladder 09/04/2024 1: 59 PM CDT 09/04/2024 3:41 PM CDT us Robert Finley MD PhD LAB URINE ORDERABLES Final Result Performing Organization Address City/[facility] Co de Phone Number [address] [place] [address] * eGFR (09/04/2024 12:36 PM CDT) eGFR [...] was last reviewed 2021. Testing performed by: [address] [address] Blood 09/04/2024 12:3 6 PM CDT 09/04/2024 12:37 PM CDT us Robert Finley MD PhD LAB BLOOD ORDERABLES Final Result Performing Organization Address City/[facility]/ZIP Co de Phone Number [address] [place] [address] * Differential, auto (09/04/2024 12:36 PM CDT) Neutrophil abs 4.09 1.50 - 6.50 K/cumm Comment:Testing performed by : [address] [address] Imm gran abs 0.01 0.00 - 0.10 K/cumm STEFANI Comment:Testing performed by : [address] [address] Lymphocyte abs 2.08 0.80 - 3.30 K/cumm [facility] Comment:Testing performed by : [address] [address] Monocyte abs 0.47 0.20 - 0.80 K/cumm [facility] Comment:Testing performed by : [address] [address] Eosinophil abs 0.09 0.00 - 0.50 K/cumm STEF[facility] Comment:Testing performed by : [address] [address] Basophil abs 0.02 0.00 - 0.10 K/cumm [facility] Comment:Testing performed by : [address] [address] Neutrophil pct 60.5 % [facility] Comment: Interpretive Data Percent cell count reference ranges are not reported, since discordance with absolute values may lead to misinterpretation of CBC data. Current Interpretive Data was last revised on 2017. Testing performed by: [address] [address] Imm gran pct 0.1 % [facility] Comment: Interpretive Data Percent cell count reference ranges are not reported, since discordance with absolute values may lead to misinterpretation of CBC data. Current Interpretive Data was last revised on 2017. Testing performed by: [address] [address] Lymphocyte pct 30.8 % [facility] Comment: Interpretive Data Percent cell count reference ranges are not reported, since discordance with absolute values may lead to misinterpretation of CBC data. Current Interpretive Data was last revised on 2017. Testing performed by: [address] [address] Monocyte pct 7.0 % [facility] Comment: Interpretive Data Percent cell count reference ranges are not reported, since discordance with absolute values may lead to misinterpretation of CBC data. Current Interpretive Data was last revised on 2017. Testing performed by: [address] [address] Eosinophil pct 1.3 % [facility] Comment: Interpretive Data Percent cell count reference ranges are not reported, since discordance with absolute values may lead to misinterpretation of CBC data. Current Interpretive Data was last revised on 2017. Testing performed by: [address] [address] Basophil pct 0.3 % [facility] Comment: Interpretive Data Percent cell count reference ranges are not reported, since discordance with absolute values may lead to misinterpretation of CBC data. Current Interpretive Data was last revised on 2017. Testing performed by: [address] [address] Blood 09/04/2024 12:3 6 PM CDT 09/04/2024 12:37 PM CDT us Robert Finley MD PhD LAB BLOOD ORDERABLES Final Result [facility] [address] [facility] Department [place] [address] * CBC with auto differential (09/04/2024 12:36 PM CDT) WBC 6.76 3.80 - 9.90 K/cumm Comment:Testing performed by : [address] [address] Hgb 12.3 11.9 - 15.5 g/dL [facility] Comment:Testing performed by : [address] [address] Hct 37.3 35.6 - 45.5 % [facility] Comment:Testing performed by : [address] [address] Plt 289 150 - 400 K/cumm [facility] Comment:Testing performed by : [address] [address] MPV 9.1 9.1 - 12.3 fL [facility] Comment:Testing performed by : [address] [address] RBC 4.09 3.90 - 5.20 M/cumm [facility] Comment:Testing performed by : [address] [address] MCV 91.2 81.3 - 96.4 fL [facility] Comment:Testing performed by : [address] [address] MCH 30.1 27.1 - 33.3 pg [facility] Comment:Testing performed by : [address] [address] MCHC 33.0 32.3 - 35.7 g/dL [facility] Comment:Testing performed by : [address], [address] RDW CV 14.1 11.1 - 14.9 % [facility] Comment:Testing performed by : [address], [address] RDW SD 46.5 35.7 - 48.1 fL [facility] Comment:Testing performed by : [address] [address] NRBC abs 0.00 0.00 - 0.01 K/cumm [facility] Comment:Testing performed by : [address] [address] ANC Prelim 4.09 1.50 - 6.50 K/cumm [facility] Comment: Interpretive Data The rapid ANC is a preliminary automated count and may vary from the final ANC (Neut Abs) reported in the WBC differential that follows. Current interpretive data was last revised 2024. Testing performed by: [address] [address] Blood 09/04/2024 12:3 6 PM CDT 09/04/2024 12:37 PM CDT Robert Finley MD PhD LAB BLOOD ORDERABLES Final Result Performing Organization Address City/[facility] Co de Phone Number STEFANI [address] [address] * TSH (09/04/2024 12:36 PM CDT) Thyroid Stimulating Hormone 2.42 0.30 - 4.20 mcIUnit/mL Comment:Testing performed by : [address] [address] Blood 09/04/2024 12:3 6 PM CDT 09/04/2024 1:37 PM CDT Robert Finley MD PhD LAB BLOOD ORDERABLES Final Result Performing Organization Address [facility] de Phone Number STEFANI [address] [address] * Comprehensive metabolic panel (09/04/2024 12:36 PM CDT) Pathologist [facility] Sodium 140 135 - 145 mmol/L Comment:Testing performed by : [address] [address] Potassium, pl 4.1 3.3 - 4.9 mmol/L STEFANI Comment:Testing performed by : [address] [address] Chloride 104 97 - 110 mmol/L [facility] Comment:Testing performed by : [address] [address] CO2 26 22 - 32 mmol/L [facility] Comment:Testing performed by : [address] [address] Anion gap 10 2 - 15 mmol/L [facility] Comment:Testing performed by : [address] [address] BUN 19 6 - 25 mg/dL [facility] Comment:Testing performed by : [address] [address] Creatinine 0.60 0.60 - 1.10 mg/dL [facility] Comment:Testing performed by : [address] [address] Glucose 141 70 - 199 mg/dL STEFANI [...] was last revised 2022. Testing performed by: [address] [address] Calcium 9.7 8.5 - 10.3 mg/dL [facility] Comment:Testing performed by : [address] [address] Bilirubin, total 0.2 0.1 - 1.2 mg/dL [facility] Comment:Testing performed by : [address] [address] Protein, pl 7.0 6.5 - 8.5 g/dL [facility] Comment:Testing performed by : [address] [address] Albumin 4.3 3.5 - 5.0 g/dL [facility] Comment:Testing performed by : [address] [address] Alk phos 94 40 - 130 Units/L [facility] Comment:Testing performed by : [address] [address] ALT 15 7 - 45 Units/L [facility] Comment:Testing performed by : [address] [address] AST 18 10 - 45 Units/L [facility] Comment:Testing performed by : [address] [address] Blood 09/04/2024 12:3 6 PM CDT 09/04/2024 12:37 PM CDT us Robert Finley MD PhD LAB BLOOD ORDERABLES Final Result [facility] [address] [facility] Department [place] [address] * CT Chest Abdomen Pelvis W Contrast [...] Arian Stewart M.D. NS: NS Report ID: [id number] Reading Location: [id number] Procedure Note Arian Stewart MD - 09/04/2024 [...] Arian Stewart M.D. NS: NS Report ID: [id number] Reading Location: [place] [address] us Robert Finley MD PhD IMG CT [...] was last reviewed 2021. Testing performed by: [address] [address] Blood 08/14/2024 7:36 AM CDT 08/14/2024 7:46 AM CDT Robert Finley MD PhD LAB BLOOD ORDERABLES Final Result [facility] [address] [facility] Department [place] [address] * Differential, auto (08/14/2024 7:36 AM CDT) Neutrophil abs 2.7 1.5 - 6.5 K/cumm Comment:Testing performed by : [address] [address] Imm gran abs 0.0 0.0 - 0.1 K/cumm [facility] Comment:Testing performed by : [address] [address] Lymphocyte abs 1.6 0.8 - 3.3 K/cumm [facility] Comment:Testing performed by : [address] [address] Monocyte abs 0.4 0.2 - 0.8 K/cumm [facility] Comment:Testing performed by : [address] [address] Eosinophil abs 0.1 0.0 - 0.5 K/cumm [facility] Comment:Testing performed by : [address] [address] Basophil abs 0.0 0.0 - 0.1 K/cumm [facility] Comment:Testing performed by : [address] [address] Neutrophil pct 55.9 % [facility] Comment: Interpretive Data Percent cell count reference ranges are not reported, since discordance with absolute values may lead to misinterpretation of CBC data. Current Interpretive Data was last revised on 2017. Testing performed by: [address] [address] Imm gran pct 0.2 % [facility] Comment: Interpretive Data Percent cell count reference ranges are not reported, since discordance with absolute values may lead to misinterpretation of CBC data. Current Interpretive Data was last revised on 2017. Testing performed by: [address] [address] Lymphocyte pct 33.3 % [facility] Comment: Interpretive Data Percent cell count reference ranges are not reported, since discordance with absolute values may lead to misinterpretation of CBC data. Current Interpretive Data was last revised on 2017. Testing performed by: [address] [address] Monocyte pct 8.3 % [facility] Comment: Interpretive Data Percent cell count reference ranges are not reported, since discordance with absolute values may lead to misinterpretation of CBC data. Current Interpretive Data was last revised on 2017. Testing performed by: [address] [address] Eosinophil pct 2.1 % [facility] Comment: Interpretive Data Percent cell count reference ranges are not reported, since discordance with absolute values may lead to misinterpretation of CBC data. Current Interpretive Data was last revised on 2017. Testing performed by: [address] [address] Basophil pct 0.2 % [facility] Comment: Interpretive Data Percent cell count reference ranges are not reported, since discordance with absolute values may lead to misinterpretation of CBC data. Current Interpretive Data was last revised on 2017. Testing performed by: [address] [address] Blood 08/14/2024 7:36 AM CDT 08/14/2024 7:46 AM CDT us Robert Finley MD PhD LAB BLOOD ORDERABLES Final Result [facility] [address] [facility] Department [place] [address] * (ABNORMAL) CBC with auto differential (08/14/2024 7:36 AM CDT) [facility] WBC 4.8 3.8 - 9.9 K/cumm Comment:Testing performed by : [address], [address] Hgb 11.9 11.9 - 15.5 g/dL [facility] Comment:Testing performed by : [address], [address] Hct 36.2 35.6 - 45.5 % [facility] Comment:Testing performed by : [address], [address] Plt 333 150 - 400 K/cumm [facility] Comment:Testing performed by : [address], [address] MPV 8.8(L) 9.1 - 12.3 fL [facility] Comment:Testing performed by : [address], [address] RBC 3.93 3.90 - 5.20 M/cumm [facility] Comment:Testing performed by : [address], [address] MCV 92.1 81.3 - 96.4 fL [facility] Comment:Testing performed by : [address], [address] MCH 30.3 27.1 - 33.3 pg [facility] Comment:Testing performed by : [address], [address] MCHC 32.9 32.3 - 35.7 g/dL [facility] Comment:Testing performed by : [address], [address] RDW CV 14.0 11.1 - 14.9 % [facility] Comment:Testing performed by : [address], [address] RDW SD 47.5 35.7 - 48.1 fL [facility] Comment:Testing performed by : [address], [address] NRBC abs 0.00 0.00 - 0.01 K/cumm [facility] Comment:Testing performed by : [address] [address] Blood 08/14/2024 7:36 AM CDT 08/14/2024 7:46 AM CDT Robert Finley MD PhD LAB BLOOD ORDERABLES Final Result Performing Organization Address [facility] de Phone Number [address] [address] * TSH (08/14/2024 7:36 AM CDT) Pathologist [facility] Thyroid Stimulating Hormone 2.32 0.30 - 4.20 mcIUnit/mL Comment:Testing performed by : [address] [address] Blood 08/14/2024 7:36 AM CDT 08/14/2024 9:56 AM CDT Robert Finley MD PhD LAB BLOOD ORDERABLES Final Result Performing Organization Address [facility] de Phone Number [address] [address] * Comprehensive metabolic panel (08/14/2024 7:36 AM CDT) [facility] Sodium 142 135 - 145 mmol/L Comment:Testing performed by : [address] [address] Potassium, pl 4.0 3.3 - 4.9 mmol/L STEFANI Comment:Testing performed by : [address] [address] Chloride 106 97 - 110 mmol/L STEFANI Comment:Testing performed by : [address] [address] CO2 26 22 - 32 mmol/L STEFANI Comment:Testing performed by : [address] [address] Anion gap 10 2 - 15 mmol/L STEFANI Comment:Testing performed by : [address] [address] BUN 20 6 - 25 mg/dL CERNER Comment:Testing performed by : [address] [address] Creatinine 0.60 0.60 - 1.10 mg/dL STEFANI Comment:Testing performed by : [address] [address] Glucose 120 70 - 199 mg/dL STEFANI [...] was last revised 2022. Testing performed by: [address] [address] Calcium 9.5 8.5 - 10.3 mg/dL STEFANI Comment:Testing performed by : [address] [address] Bilirubin, total 0.2 0.1 - 1.2 mg/dL [facility] Comment:Testing performed by : [address] [address] Protein, pl 6.8 6.5 - 8.5 g/dL STEFANI Comment:Testing performed by : [address] [address] Albumin 4.1 3.5 - 5.0 g/dL [facility] Comment:Testing performed by : [address] [address] Alk phos 92 40 - 130 Units/L STEFANI Comment:Testing performed by : [address] [address] ALT 19 7 - 45 Units/L STEFANI Comment:Testing performed by : [address] [address] AST 19 10 - 45 Units/L STEFANI Comment:Testing performed by : [address] [address] Blood 08/14/2024 7:36 AM CDT 08/14/2024 7:46 AM CDT us Robert Finley MD PhD LAB BLOOD ORDERABLES Final Result Performing Organization Address City/[facility]/ZIP Co de Phone Number STEFANI [address] [address] * eGFR (07/24/2024 12:47 PM CUSTOMER SERVICE AND SALES CONSULTANT) [facility] eGFR >90 >=60 mL/min/1. 73 m2 [...] was last reviewed 2021. Testing performed by: [address] [address] Blood 07/24/2024 12:4 7 PM CUSTOMER SERVICE AND SALES CONSULTANT 07/24/2024 12:48 PM CUSTOMER SERVICE AND SALES CONSULTANT us Robert Finley MD PhD LAB BLOOD ORDERABLES Final Result Performing Organization Address City/[facility]/ZIP Co de Phone Number STEFANI [address] [place] [address] * Differential, auto (07/24/2024 12:47 PM CUSTOMER SERVICE AND SALES CONSULTANT) [facility] Neutrophil abs 5.4 1.5 - 6.5 K/cumm Comment:Testing performed by : [address], [place]., [address] Imm gran abs 0.0 0.0 - 0.1 K/cumm [facility] Comment:Testing performed by : [address], [place]., [address] Lymphocyte abs 2.1 0.8 - 3.3 K/cumm [facility] Comment:Testing performed by : [address], [place]., [address] Monocyte abs 0.5 0.2 - 0.8 K/cumm [facility] Comment:Testing performed by : [address] [address] Eosinophil abs 0.1 0.0 - 0.5 K/cumm [facility] Comment:Testing performed by : [address] [address] Basophil abs 0.0 0.0 - 0.1 K/cumm [facility] Comment:Testing performed by : [address] [address] Neutrophil pct 65.8 % [facility] Comment: Interpretive Data Percent cell count reference ranges are not reported, since discordance with absolute values may lead to misinterpretation of CBC data. Current Interpretive Data was last revised on 2017. Testing performed by: [address] [address] Imm gran pct 0.2 % [facility] Comment: Interpretive Data Percent cell count reference ranges are not reported, since discordance with absolute values may lead to misinterpretation of CBC data. Current Interpretive Data was last revised on 2017. Testing performed by: [address] [address] Lymphocyte pct 25.7 % [facility] Comment: Interpretive Data Percent cell count reference ranges are not reported, since discordance with absolute values may lead to misinterpretation of CBC data. Current Interpretive Data was last revised on 2017. Testing performed by: [address] [address] Monocyte pct 6.4 % [facility] Comment: Interpretive Data Percent cell count reference ranges are not reported, since discordance with absolute values may lead to misinterpretation of CBC data. Current Interpretive Data was last revised on 2017. Testing performed by: [address] [address] Eosinophil pct 1.7 % STEFANI SUERO Comment: Interpretive Data Percent cell count reference ranges are not reported, since discordance with absolute values may lead to misinterpretation of CBC data. Current Interpretive Data was last revised on 2017. Testing performed by: [address] [address] Basophil pct 0.2 % STEFANI SUERO Comment: Interpretive Data Percent cell count reference ranges are not reported, since discordance with absolute values may lead to misinterpretation of CBC data. Current Interpretive Data was last revised on 2017. Testing performed by: [address] [address] Blood 07/24/2024 12:4 7 PM CUSTOMER SERVICE AND SALES CONSULTANT 07/24/2024 12:49 PM CUSTOMER SERVICE AND SALES CONSULTANT us Robert Finley MD PhD LAB BLOOD ORDERABLES Final Result STEFANI [address] [facility] Department of Laboratories [place], [place] [id number] * (ABNORMAL) CBC with auto differential (07/24/2024 12:47 PM CUSTOMER SERVICE AND SALES CONSULTANT) WBC 8.2 3.8 - 9.9 K/cumm Comment:Testing performed by : [address] [address] Hgb 11.9 11.9 - 15.5 g/dL STEFANI SUERO Comment:Testing performed by : [address] [address] Hct 36.4 35.6 - 45.5 % STEFANI SUERO Comment:Testing performed by : [address] [address] Plt 295 150 - 400 K/cumm STEFANI SUERO Comment:Testing performed by : [address] [address] MPV 9.0(L) 9.1 - 12.3 fL STEFANI SUERO Comment:Testing performed by : [address] [address] RBC 3.97 3.90 - 5.20 M/cumm STEFANI SUERO Comment:Testing performed by : [address] [address] MCV 91.7 81.3 - 96.4 fL STEFANI SUERO Comment:Testing performed by : [address] [address] MCH 30.0 27.1 - 33.3 pg STEFANI SUERO Comment:Testing performed by : [address] [address] MCHC 32.7 32.3 - 35.7 g/dL STEFANI SUERO Comment:Testing performed by : [address], [address] RDW CV 14.4 11.1 - 14.9 % STEFANI Comment:Testing performed by : [address] [address] RDW SD 48.4(H) 35.7 - 48.1 fL STEFANI Comment:Testing performed by : [address] [address] NRBC abs 0.00 0.00 - 0.01 K/cumm STEFANI SUERO Comment:Testing performed by : [address] [address] Blood 07/24/2024 12:4 7 PM CUSTOMER SERVICE AND SALES CONSULTANT 07/24/2024 12:49 PM CUSTOMER SERVICE AND SALES CONSULTANT us Robert Finley MD PhD LAB BLOOD ORDERABLES Final Result STEFANI SUERO [address] [facility] Department of Laboratories [place], [place] [id number] * TSH (07/24/2024 12:47 PM CUSTOMER SERVICE AND SALES CONSULTANT) Thyroid Stimulating Hormone 2.03 0.30 - 4.20 mcIUnit/mL Comment:Testing performed by : [address] [address] Blood 07/24/2024 12:4 7 PM CUSTOMER SERVICE AND SALES CONSULTANT 07/24/2024 1:51 PM CUSTOMER SERVICE AND SALES CONSULTANT us Robert Finley MD PhD LAB BLOOD ORDERABLES Final Result [facility] [address] [facility] Department [place] [address] * Comprehensive metabolic panel (07/24/2024 12:47 PM CUSTOMER SERVICE AND SALES CONSULTANT) Sodium 141 135 - 145 mmol/L Comment:Testing performed by : [address] [address] Potassium, pl 3.8 3.3 - 4.9 mmol/L STEFANI Comment:Testing performed by : [address] [address] Chloride 104 97 - 110 mmol/L STEFANI Comment:Testing performed by : [address] [address] CO2 27 22 - 32 mmol/L STEFANI Comment:Testing performed by : [address] [address] Anion gap 10 2 - 15 mmol/L STEFANI Comment:Testing performed by : [address] [address] BUN 18 6 - 25 mg/dL STEFANI Comment:Testing performed by : [address] [address] Creatinine 0.60 0.60 - 1.10 mg/dL STEFANI Comment:Testing performed by : [address] [address] Glucose 137 70 - 199 mg/dL STEFANI [...] was last revised 2022. Testing performed by: [facility], [address] [place] [address]., [address] Calcium 9.4 8.5 - 10.3 mg/dL STEFANI Comment:Testing performed by : [address] [address] Bilirubin, total 0.2 0.1 - 1.2 mg/dL STEFANI Comment:Testing performed by : [address] [address] Protein, pl 6.9 6.5 - 8.5 g/dL STEFANI Comment:Testing performed by : [address], [place]., [address] Albumin 4.1 3.5 - 5.0 g/dL STEFANI Comment:Testing performed by : [address] [address] Alk phos 98 40 - 130 Units/L STEFANI Comment:Testing performed by : [address] [address] ALT 26 7 - 45 Units/L STEFANI Comment:Testing performed by : [address] [address] AST 19 10 - 45 Units/L STEFANI Comment:Testing performed by : [address] [address] Blood 07/24/2024 12:4 7 PM CUSTOMER SERVICE AND SALES CONSULTANT 07/24/2024 12:48 PM CUSTOMER SERVICE AND SALES CONSULTANT us Robert Finley MD PhD LAB BLOOD ORDERABLES Final Result STEFANI SUERO [address] [facility] Department [place] [address] * RAD ONC ARIA COURSE SUMMARY (07/12/2024 10:11 AM CUSTOMER SERVICE AND SALES CONSULTANT) Course Name C3 2024 ARIA Course Plan Date 07/12/2024 8:25 AM ARIA Elapsed Days 0 ARIA Course Intent Unknown ARIA Treatment Start Date 07/12/2024 ARIA Treatment Site [id number] ariet ARIA Dose Given To Date (cGy) 2,000 ARIA Session Dosage Given (cGy) 0 ARIA Plan ID GTV 10-11 ARIA Fractions Treated 1 ARIA Prescribed Dose Per Fraction (cGy) 2,000 ARIA Prescribed Total Dose (cGy) 2,000 ARIA 07/12/2024 10:1 1 AM CUSTOMER SERVICE AND SALES CONSULTANT us Not In File Miscellaneous RADIATION ONCOLOGY ORD ERABLES Final Result ARIA * RAD ONC ARIA SESSION SUMMARY (07/12/2024 9:39 AM CUSTOMER SERVICE AND SALES CONSULTANT) Course Name C3 2024 ARIA Course Plan Date 07/12/2024 8:25 AM ARIA Elapsed Days 0 ARIA Course Intent Unknown ARIA Treatment Start Date 07/12/2024 ARIA Treatment Site [id number] ariet ARIA Dose Given To Date (cGy) 2,000 ARIA Session Dosage Given (cGy) 2,000 ARIA Plan ID GTV 10-11 ARIA Fractions Treated 1 ARIA Prescribed Dose Per Fraction (cGy) 2,000 ARIA Prescribed Total Dose (cGy) 2,000 ARIA 07/12/2024 9:39 AM CUSTOMER SERVICE AND SALES CONSULTANT us Not In File Miscellaneous RADIATION ONCOLOGY ORD ERABLES Final Result ARIA * MRI Brain Gamma Knife W WO Contrast (07/09/2024 11:35 AM CUSTOMER SERVICE AND SALES CONSULTANT) Anatomical Region Laterality Modality Head and Neck N/A Magnetic Resonan ce 07/09/2024 12:2 3 PM CUSTOMER SERVICE AND SALES CONSULTANT Impressions 07/09/2024 12:23 PM CUSTOMER SERVICE AND SALES CONSULTANT 2 contrast-enhancing lesions for radiation therapy planning, as detailed above. Findings discussed with Marcelino Hendrix at 1223 hours 07/09/2024. Electronically signed by: Darby Maldonado M.D. Narrative 07/09/2024 12:23 PM CUSTOMER SERVICE AND SALES CONSULTANT EXAMINATION: Magnetic resonance imaging (MRI) of the [...] nal Result * eGFR (06/26/2024 1:02 PM CUSTOMER SERVICE AND SALES CONSULTANT) eGFR >90 >=60 mL/min/1. 73 m2 Comment: [...] was last reviewed 2021. Testing performed by: [facility], [address] [place] [address]., [address] Blood 06/26/2024 1:02 PM CUSTOMER SERVICE AND SALES CONSULTANT 06/26/2024 1:03 PM CUSTOMER SERVICE AND SALES CONSULTANT us Robert Finley MD PhD LAB BLOOD ORDERABLES Final Result [facility] [address] [facility] Department [place] [address] * Differential, auto (06/26/2024 1:02 PM CUSTOMER SERVICE AND SALES CONSULTANT) Neutrophil abs 3.2 1.5 - 6.5 K/cumm Comment:Testing performed by : [address] [address] Imm gran abs 0.0 0.0 - 0.1 K/cumm [facility] Comment:Testing performed by : [address] [address] Lymphocyte abs 2.0 0.8 - 3.3 K/cumm STEFANI Comment:Testing performed by : [address] [address] Monocyte abs 0.5 0.2 - 0.8 K/cumm STEFANI Comment:Testing performed by : [address] [address] Eosinophil abs 0.1 0.0 - 0.5 K/cumm STEFANI Comment:Testing performed by : [address] [address] Basophil abs 0.0 0.0 - 0.1 K/cumm [facility] Comment:Testing performed by : [address] [address] Neutrophil pct 55.0 % [facility] Comment: Interpretive Data Percent cell count reference ranges are not reported, since discordance with absolute values may lead to misinterpretation of CBC data. Current Interpretive Data was last revised on 2017. Testing performed by: [address] [address] Imm gran pct 0.3 % [facility] Comment: Interpretive Data Percent cell count reference ranges are not reported, since discordance with absolute values may lead to misinterpretation of CBC data. Current Interpretive Data was last revised on 2017. Testing performed by: [address] [address] Lymphocyte pct 34.3 % [facility] Comment: Interpretive Data Percent cell count reference ranges are not reported, since discordance with absolute values may lead to misinterpretation of CBC data. Current Interpretive Data was last revised on 2017. Testing performed by: [address] [address] Monocyte pct 8.5 % [facility] Comment: Interpretive Data Percent cell count reference ranges are not reported, since discordance with absolute values may lead to misinterpretation of CBC data. Current Interpretive Data was last revised on 2017. Testing performed by: [address] [address] Eosinophil pct 1.6 % STEFANI SUERO Comment: Interpretive Data Percent cell count reference ranges are not reported, since discordance with absolute values may lead to misinterpretation of CBC data. Current Interpretive Data was last revised on 2017. Testing performed by: [address] [address] Basophil pct 0.3 % STEFANI SUERO Comment: Interpretive Data Percent cell count reference ranges are not reported, since discordance with absolute values may lead to misinterpretation of CBC data. Current Interpretive Data was last revised on 2017. Testing performed by: [address] [address] Blood 06/26/2024 1:02 PM CUSTOMER SERVICE AND SALES CONSULTANT 06/26/2024 1:03 PM CUSTOMER SERVICE AND SALES CONSULTANT us Robert Finley MD PhD LAB BLOOD ORDERABLES Final Result STEFANI [facility] [facility] Department [place] [address] * (ABNORMAL) CBC with auto differential (06/26/2024 1:02 PM CUSTOMER SERVICE AND SALES CONSULTANT) WBC 5.7 3.8 - 9.9 K/cumm Comment:Testing performed by : [address] [address] Hgb 12.8 11.9 - 15.5 g/dL STEFANI SUERO Comment:Testing performed by : [address] [address] Hct 38.8 35.6 - 45.5 % STEFANI SUERO Comment:Testing performed by : [address] [address] Plt 350 150 - 400 K/cumm STEFANI SUERO Comment:Testing performed by : [address] [address] MPV 8.7(L) 9.1 - 12.3 fL STEFANI SUERO Comment:Testing performed by : [address] [address] RBC 4.22 3.90 - 5.20 M/cumm STEFANI SUERO Comment:Testing performed by : [address] [address] MCV 91.9 81.3 - 96.4 fL STEFANI SUERO Comment:Testing performed by : [address] [address] MCH 30.3 27.1 - 33.3 pg STEFANI SUERO Comment:Testing performed by : [address] [address] MCHC 33.0 32.3 - 35.7 g/dL STEFANI SUERO Comment:Testing performed by : [address], [address] RDW CV 14.3 11.1 - 14.9 % STEFANI Comment:Testing performed by : [address], [address] RDW SD 47.9 35.7 - 48.1 fL STEFANI Comment:Testing performed by : [address] [address] NRBC abs 0.00 0.00 - 0.01 K/cumm STEFANI Comment:Testing performed by : [address] [address] Blood 06/26/2024 1:02 PM CUSTOMER SERVICE AND SALES CONSULTANT 06/26/2024 1:03 PM CUSTOMER SERVICE AND SALES CONSULTANT us Robert Finley MD PhD LAB BLOOD ORDERABLES Final Result [facility] [address] [facility] Department [place] [address] * TSH (06/26/2024 1:02 PM CUSTOMER SERVICE AND SALES CONSULTANT) Thyroid Stimulating Hormone 1.09 0.30 - 4.20 mcIUnit/mL Comment:Testing performed by : [address] [address] Blood 06/26/2024 1:02 PM CUSTOMER SERVICE AND SALES CONSULTANT 06/26/2024 1:42 PM CUSTOMER SERVICE AND SALES CONSULTANT us Robert Finley MD PhD LAB BLOOD ORDERABLES Final Result STEFANI [address] [facility] [place] [address] * Comprehensive metabolic panel (06/26/2024 1:02 PM CUSTOMER SERVICE AND SALES CONSULTANT) Sodium 142 135 - 145 mmol/L Comment:Testing performed by : [address] [address] Potassium, pl 4.0 3.3 - 4.9 mmol/L STEFANI Comment:Testing performed by : [address] [address] Chloride 106 97 - 110 mmol/L STEFANI Comment:Testing performed by : [address] [address] CO2 26 22 - 32 mmol/L STEFANI Comment:Testing performed by : [address] [address] Anion gap 10 2 - 15 mmol/L STEFANI Comment:Testing performed by : [address] [address] BUN 16 6 - 25 mg/dL STEFANI Comment:Testing performed by : [address] [address] Creatinine 0.60 0.60 - 1.10 mg/dL STEFANI Comment:Testing performed by : [address] [address] Glucose 110 70 - 199 mg/dL STEFANI [...] was last revised 2022. Testing performed by: [address] [address] Calcium 9.5 8.5 - 10.3 mg/dL STEFANI Comment:Testing performed by : [facility], [address] [place] [address]., [address] Bilirubin, total 0.3 0.1 - 1.2 mg/dL STEFANI Comment:Testing performed by : [address] [address] Protein, pl 7.2 6.5 - 8.5 g/dL STEFANI Comment:Testing performed by : [address], [place]., [address] Albumin 4.2 3.5 - 5.0 g/dL STEFANI Comment:Testing performed by : [address], [address] Alk phos 98 40 - 130 Units/L STEFANI Comment:Testing performed by : [address] [address] ALT 22 7 - 45 Units/L [facility] Comment:Testing performed by : [address] [address] AST 19 10 - 45 Units/L [facility] Comment:Testing performed by : [address] [address] Blood 06/26/2024 1:02 PM CUSTOMER SERVICE AND SALES CONSULTANT 06/26/2024 1:03 PM CUSTOMER SERVICE AND SALES CONSULTANT us Robert Finley MD PhD LAB BLOOD ORDERABLES Final Result [facility] [address] [facility] [place] [address] from Last [address] [place] [address] [place] [id number] [place] [phone] Advance Directives For more information, please contact: [phone] * Full Code (Latest Code Status on File) Date Activated Date Inactivated Comments 11/19/2022 7:26 AM 11/20/2022 4:54 AM Care Teams Civil Design Specialist Relationship Specialty Start Date End Date Jarocho Ruggiero MD PCP - General Internal Medicine 08/20/22 Robert Finley MD PhD [address] [place] [address] MEDICAL ONCOLOGY, [facility] [address] [place] [address] Consulting Physician Medical Oncology 10/05/22 Jarrett Lofton MD [address] [place] [address] MEDICAL ONCOLOGY, [address] [id number] Consulting Physician Neurosurgery 11/18/22
--- OUTSIDE RECORDS SUMMARY | 2024-09-20 09:24 | XMS_ITS ---
Author Organization [facility] Address [address] [place] [address] Care Team Providers Care Dresser Tender Name Role Phone Jarocho Ruggiero MD Primary Care Provider [phone] Robert Finley MD PhD Unavailable Jarrett Lofton MD Unavailable [phone] Active Problems Problem Noted Date Diagnosed Date [...] 2,000 1 / 2,000 Reference Points Delivered [id number] 07/12/2024 - 07/12/2024 2,000 * Course C2_GK [...]
== END 2024-09-20 08:52 | disposition home or self-care (01) ==
LOC: CHSIMG 08:53
PROVIDERS: PCP Internal Medicine; Visit Provider Nurse Practitioner Family
DX: R92.8 Other abnormal and inconclusive findings on diagnostic imaging of breast (principal)
CPT/HCPCS: 76642; 77061; 77065; G0279